=== PATIENT | female | born 1935 | race Caucasian/White ===

== ENCOUNTER → 2016-03-19 | Outpatient (CLI) | payer BC ==
[~2016-03-19] MED LIST: CETI10TA84 PO; CHOLTAB3 PO; CLON0.5T3 PO; CYAN500T PO; ESTER-C500 M2 PO; LSN/10125 PO; MAGN1CAP2 PO; METO25TA3 PO; MULT-506 PO; PANT40TA PO; POLYSOL4 OP; SALI0.658 NAE; SIMV10TA2 PO; TRAZ100T29 PO; ZINC30TA3 PO
--- NOTE | 2016-03-19 12:32 | DIAGNOSTIC IMAGING REPORT ---
CHEST 2 VIEWS ROUTINE CLINICAL HISTORY: Cough. COMPARISON STUDY: Chest radiograph September 18, 2013. FINDINGS: A calcified right lung nodule is unchanged. Lung volumes are normal. There is no consolidation. There is no evidence of pulmonary edema. Cardiomediastinal silhouette is normal. Widening of the right paratracheal stripe is unchanged. Mild loss of height of a lower thoracic vertebral body is likely chronic. IMPRESSION: No acute cardiopulmonary findings. Electronically signed by: Miki Vaughan M.D. 03/19/2016 12:30 PM Dictated Date/Time: 03/19/2016 12:29 PM
== END | disposition home or self-care (01) ==
LOC: C.RADBC 11:39
PROVIDERS: ATTEND Internal Medicine Geriatric Medicine
DX: R05 Cough (principal)

== ENCOUNTER → 2016-03-30 | Outpatient (CLI) | payer BC ==
--- NOTE | 2016-03-30 15:00 | MAMMOGRAPHY REPORT ---
BILATERAL DIGITAL DIAGNOSTIC MAMMOGRAM TOMOSYNTHESIS WITH CAD AND TARGETED BILATERAL ULTRASOUND: 03/09 CLINICAL HISTORY: 80-year-old woman presents with new palpable painful lumps in each breast. She re ports chronic chest pain possibly related to arthritis for which she uses a heating pad across her c hest nearly every night. Also history of prior benign right breast biopsy and right-sided epidermal inclusion cyst. TECHNIQUE: Bilateral breast tomosynthesis in addition to standard 2D mammography was performed. Curr ent study was also evaluated with a Computer Aided Detection (CAD) system. COMPARISON: Comparison is made to exams dated: 05/17/2015 ultrasound, 11/14/2014 ultrasound, 11/30/2013 mammogram, 11/17/2012 mammogram, 11/12/2011 aspiration, and 02/12/2011 aspiration - [facility]. BREAST COMPOSITION: There are scattered areas of fibroglandular density in both breasts. FINDINGS: Triangular skin palpable markers overlie the 12:00 right breast and 1:00 left breast. The re is a stable ribbon shaped metallic biopsy marker in the far medial, far posterior right breast, o nly seen on the CC view. There are benign-appearing round microcalcifications scattered in the [place] sts. A superficial 3 mm dense mass is identified in anterior to the biopsy marker clip in the media l right breast for which additional sonographic evaluation was performed, although this is the area of previously documented epidermal inclusion cyst. No other suspicious mass, architectural distorti on or cluster of microcalcifications is seen bilaterally, with particular attention to the new palpa ble areas. Targeted ultrasound was performed in the areas of concern pointed out by the patient (12:00 left lui ast, 5 cm from the nipple, and 12:00 right breast, 2 cm from the nipple). In the areas of concern w ithin the 12:00 axes of each breast, normal fibroglandular tissue is seen without a discrete solid o r cystic mass. Additional sonographic evaluation was performed in the far medial right breast. In the approximate 3:00 axis, 8 cm from the nipple, there is a pea sized palpable mass with black centr al punctum evident on visual inspection. On ultrasound, there is an intradermal oval parallel circu mscribed hypoechoic solid versus cystic mass measuring a proximally 5 mm. A punctum is identified e xtending to the skin surface. This is compatible with an epidermal inclusion cyst. IMPRESSION: ACR BI-RADS CATEGORY 2: BENIGN, TARGETED ULTRASOUND ACR BI-RADS CATEGORY 2: BENIGN 1. There is no suspicious mammographic or sonographic abnormality correlating with the palpable herminio nful lumps in the 12:00 axis of each breast. Therefore, clinical follow-up is recommended, as biops y of a clinically suspicious mass should not be precluded by negative imaging. 2. A 3 mm dense mass in the medial right breast correlates with an intradermal epidermal inclusion cyst, which is also visible on visual inspection and palpable. This is benign and no further workup is needed at this time. 3. Recommend follow-up in 1 year for next annual screening mammogram. These results and recommendations were discussed with the patient at the time of the exam. Approximately 10% of breast cancers are not detected with mammography. A negative mammographic repor t should not delay biopsy if a clinically suggestive mass is present. Ranjana Urbano M.D. ay/:03/30/2016 11:58:20 [employer]ender: Va Vargas, [facility] letter sent: Normal 1/2 BI-RADS Code: ACR BI-RADS Category 2: Benign Ultrasound BI-RADS: ACR BI-RADS Category 2: Benign
== END | disposition home or self-care (01) ==
LOC: C.MAMM 10:55
PROVIDERS: ATTEND Internal Medicine Geriatric Medicine
DX: N64.4 Mastodynia (principal); N63 Unspecified lump in breast

== ENCOUNTER → 2016-07-08 | Outpatient (CLI) | payer BC ==
[2016-07-08 14:39] LABS: BASO % 0.2 %; BASO ABS # 0.01 K/uL (0-0.2); COMPLETE YES; EOS % 1.5 %; HEMATOCRIT 40.2 % (37-47); IG% 0.2 %; LYMPH % 24.9 %; LYMPH ABS # 1.17 K/uL (1.2-3.4); MEAN CELL VOLUME 91.6 fL (80-100); MEAN CORPUSCULAR HGB CONC 33.8 g/dl (32-36); MEAN PLATELET VOLUME 10.7 fL (7.4-10.4); MONO % 8.1 %; NEUT % 65.1 %; PLATELET COUNT 192 K/uL (130-400); RED BLOOD COUNT 4.39 M/uL (4.2-5.4); WHITE BLOOD COUNT 4.69 K/uL (4.8-10.8)
[2016-07-08 14:52] LABS: ALT/SGPT 22 U/L (12-78); BLOOD UREA NITROGEN 6 mg/dl (7-18); BUN/CREATININE RATIO 8.8 (10-20); CARBON DIOXIDE 33 mmol/L (21-32); CHLORIDE 99 mmol/L (98-107); CREATININE 0.72 mg/dl (0.60-1.20); GLUCOSE 107 mg/dl (70-99); POTASSIUM 3.9 mmol/L (3.5-5.1); SODIUM 136 mmol/L (136-145)
[2016-07-08 14:55] LABS: CALCIUM 9.3 mg/dl (8.5-10.1)
[2016-07-08 14:59] LABS: ESTIMATED AVERAGE GLUCOSE 114 mg/dl; HA1C FLAG Normal (Normal)
[2016-07-08 15:04] LABS: ALB/GLOB RATIO 1.4 (0.9-2); ALKALINE PHOSPHATASE 58 U/L (45-117); AST/SGOT 15 U/L (15-37); THYROID STIMULATING HORMONE 0.855 uIu/ml (0.300-4.500)
== END | disposition home or self-care (01) ==
LOC: C.LABBC 11:05
PROVIDERS: ATTEND Internal Medicine Geriatric Medicine
DX: R73.9 Hyperglycemia, unspecified (principal); M19.90 Unspecified osteoarthritis, unspecified site; I10 Essential (primary) hypertension; E78.5 Hyperlipidemia, unspecified; E04.2 Nontoxic multinodular goiter; M85.80 Other specified disorders of bone density and structure, unspecified site

== ENCOUNTER → 2016-09-04 | Outpatient (CLI) | payer BC ==
[2016-09-04 13:57] LABS: BLOOD UREA NITROGEN 7 mg/dl (7-18); CREATININE 0.88 mg/dl (0.60-1.20)
== END | disposition home or self-care (01) ==
LOC: C.LABBC 10:06
PROVIDERS: ATTEND Psychiatry & Neurology Neurology
DX: Z00.00 Encounter for general adult medical examination without abnormal findings (principal); D32.9 Benign neoplasm of meninges, unspecified; R51 Headache

== ENCOUNTER → 2016-09-09 | Outpatient (CLI) | payer BC ==
[~2016-09-09] MED LIST changes: +GADAVIST IV PRN
--- NOTE | 2016-09-09 14:41 | DIAGNOSTIC IMAGING REPORT ---
MRI OF THE BRAIN WITHOUT AND WITH IV CONTRAST CLINICAL HISTORY: Headache. Meningioma. COMPARISON STUDY: 01/01/2016 TECHNIQUE: MRI of the brain was performed from the vertex to the skull base utilizing various T1 and T2 weighted sequences. Following the IV administration of 5.7 mL of Gadavist contrast, additional enhanced images were obtained. FINDINGS: Sagittal T1, axial diffusion, proton density and T2 weighted axial, coronal FLAIR, and pre and post axial T1-weighted images were acquired. These were supplemented with post gadolinium coronal T1 weighted images. There is a right anterior middle cranial fossa dural based mass which is isointense to cid matter on T2-weighted images. The mass enhances intensely following administration of gadolinium. The mass measures 14 x 12 x 12 mm. 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 The mass demonstrates minimal interval enlargement when compared the preceding study. Axial diffusion-weighted images reveal no evidence of acute or subacute infarction. There is no evidence of ventricular dilatation. Proton density T2-weighted and FLAIR images reveal scattered foci of increased T2 signal within the white matter, likely on a small vessel basis. There are old left basal ganglia lacunar infarcts. There are no abnormal flow voids. With the exception of the enhancing right middle cranial fossa extra-axial mass, there are no additional foci of pathologic enhancement. IMPRESSION: 1. Minimal interval increase in the size of the 14 x 12 x 12 mm right middle cranial fossa extra-axial mass, consistent with a sphenoid wing meningioma. 2. No evidence of acute or subacute infarction 3. Old left basal ganglia lacunar infarcts. Electronically signed by: Bob Ly M.D. 09/09/2016 2:39 PM Dictated Date/Time: 09/09/2016 2:33 PM
== END | disposition home or self-care (01) ==
LOC: C.MRIBC 13:43
PROVIDERS: ATTEND Psychiatry & Neurology Neurology
DX: D32.9 Benign neoplasm of meninges, unspecified (principal); R51 Headache

== ENCOUNTER → 2016-11-10 | Outpatient (CLI) | payer BC ==
[~2016-11-10] MED LIST changes: -GADAVIST IV PRN
--- NOTE | 2016-11-10 13:19 | DIAGNOSTIC IMAGING REPORT ---
ULTRASOUND OF THE THYROID GLAND CLINICAL HISTORY: Thyroid nodules. COMPARISON STUDY: Thyroid ultrasound dated 10/22/2015. TECHNIQUE: Real-time, grayscale, and color flow sonography of the thyroid gland is performed utilizing a high-frequency linear transducer. Images are reviewed in the transverse and longitudinal planes. FINDINGS: Right lobe: The right lobe of the thyroid gland is enlarged and heterogeneous in echotexture, measuring 6.1 x 3.1 x 1.9 cm. A complex solid and cystic nodule in the mid to lower pole measures 3.6 x 1.7 x 2.8 cm in aggregate dimension (previously measured 3.0 x 1.5 x 2.1 cm). Differences in size are likely related to measurement technique. A hypoechoic nodule in the right lower pole measures 1.0 x 1.1 x 1.0 cm (previously measured 1.2 x 1.1 x 1.3 cm). Left lobe: The left lobe of the thyroid gland is enlarged and heterogeneous in echotexture, measuring 6.9 x 3.3 x 4.0 cm. A densely calcified nodule in the lower pole measures 1.0 cm (previously measured 1.0 cm). A nodule versus cluster of nodules in the midpole measures 4.1 x 2.6 x 3.5 cm in aggregate dimension (previously measured 4.0 x 3.0 x 3.6 cm). Isthmus: The thyroid isthmus is thickened and heterogeneous measuring 1.0 cm in AP diameter. IMPRESSION: Enlarged, heterogeneous, and multinodular thyroid gland. This has not appreciably changed from prior studies. Electronically signed by: Nikolas Ramirez M.D. 11/10/2016 1:18 PM Dictated Date/Time: 11/10/2016 1:14 PM
== END | disposition home or self-care (01) ==
LOC: C.ULTRBC 12:09
PROVIDERS: ATTEND Physician Assistant
DX: E04.2 Nontoxic multinodular goiter (principal)

== ENCOUNTER → 2017-01-27 | Outpatient (CLI) | payer BC ==
[2017-01-27 13:47] LABS: BASO % 0.4 %; BASO ABS # 0.02 K/uL (0-0.2); COMPLETE YES; EOS % 4.1 %; HEMATOCRIT 40.2 % (37-47); IG% 0.2 %; LYMPH % 29.9 %; LYMPH ABS # 1.39 K/uL (1.2-3.4); MEAN CELL VOLUME 90.3 fL (80-100); MEAN CORPUSCULAR HEMOGLOBIN 30.6 pg (25-34); MEAN CORPUSCULAR HGB CONC 33.8 g/dl (32-36); MEAN PLATELET VOLUME 10.7 fL (7.4-10.4); MONO % 7.5 %; NEUT % 57.9 %; PLATELET COUNT 177 K/uL (130-400); RED BLOOD COUNT 4.45 M/uL (4.2-5.4); WHITE BLOOD COUNT 4.65 K/uL (4.8-10.8)
[2017-01-27 14:43] LABS: ALT/SGPT 25 U/L (12-78); AST/SGOT 19 U/L (15-37); BLOOD UREA NITROGEN 6 mg/dl (7-18); BUN/CREATININE RATIO 7.3 (10-20); CALCIUM 8.8 mg/dl (8.5-10.1); CARBON DIOXIDE 29 mmol/L (21-32); CHLORIDE 101 mmol/L (98-107); CHOLESTEROL 138 mg/dl (0-200); GLUCOSE 135 mg/dl (70-99); POTASSIUM 3.8 mmol/L (3.5-5.1); SODIUM 137 mmol/L (136-145); TRIGLYCERIDES 97 mg/dl (0-150); VERY LOW DENSITY LIPOPROT CALC 19 mg/dl
[2017-01-27 14:46] LABS: ALB/GLOB RATIO 1.2 (0.9-2); ALKALINE PHOSPHATASE 65 U/L (45-117); CHOLESTEROL/HDL RATIO 2.4; HDL CHOLESTEROL 57 mg/dl; LDL CHOLESTEROL CALCULATED 62 mg/dl
== END | disposition home or self-care (01) ==
LOC: C.LABBC 10:07
PROVIDERS: ATTEND Internal Medicine Geriatric Medicine
DX: J45.909 Unspecified asthma, uncomplicated (principal); I10 Essential (primary) hypertension; E78.5 Hyperlipidemia, unspecified; R73.9 Hyperglycemia, unspecified

== ENCOUNTER → 2017-04-19 | Outpatient (CLI) | payer BC ==
--- NOTE | 2017-04-19 11:04 | DIAGNOSTIC IMAGING REPORT ---
CHEST 2 VIEWS ROUTINE CLINICAL HISTORY: Wheezing on auscultation. COMPARISON STUDY: Chest radiograph March 19, 2016. FINDINGS: Lung volumes are normal. Mild elevation the right hemidiaphragm is unchanged. There is no pneumothorax or pleural effusion. A calcified right upper lobe granuloma is noted. There are calcified thoracic lymph nodes. No consolidation is identified. There is no evidence for pulmonary edema. Appearance of the chest is unchanged. IMPRESSION: No acute cardiopulmonary findings. Electronically signed by: Miki Vaughan M.D. 04/19/2017 11:02 AM Dictated Date/Time: 04/19/2017 11:01 AM
== END | disposition home or self-care (01) ==
LOC: C.RADBC 10:27
PROVIDERS: ATTEND Family Medicine Adult Medicine
DX: R06.2 Wheezing (principal)

== ENCOUNTER → 2017-04-28 | Outpatient (CLI) | payer BC ==
--- NOTE | 2017-04-29 14:03 | MAMMOGRAPHY REPORT ---
BILATERAL DIGITAL SCREENING MAMMOGRAM TOMOSYNTHESIS WITH CAD: 04/28/2017 CLINICAL HISTORY: Routine screening. Patient has no complaints. TECHNIQUE: Breast tomosynthesis in addition to standard 2D mammography was performed. Current study was also evaluated with a Computer Aided Detection (CAD) system. COMPARISON: Comparison is made to exams dated: 03/30/2016 ultrasound, 03/30/2016 mammogram, 05/17/2015 ultrasound, 05/17/2015 mammogram, 11/14/2014 ultrasound, and 11/14/2014 mammogram - [facility]. BREAST COMPOSITION: There are scattered areas of fibroglandular density in both breasts. FINDINGS: A sebaceous cyst/epidermal inclusion cyst was marked with a circular more marker, located i n the lower inner far posterior right breast. This lesion is decreased in size comparing to the 2012 mammograms, but generally stable comparing to more recent prior mammograms. There is also a stable biopsy marker clip located just posterior to the cyst. No new suspicious mass, architectural distort ion or cluster of microcalcifications is seen bilaterally. IMPRESSION: ACR BI-RADS CATEGORY 1: NEGATIVE There is no mammographic evidence of malignancy. A 1 year screening mammogram is recommended. The pa tient will receive written notification of the results. Approximately 10% of breast cancers are not detected with mammography. A negative mammographic report should not delay biopsy if a clinically suggestive mass is present. Ranjana Urbano M.D. ay/:04/28/2017 15:55:57 Trainmaster: Va Vargas, [facility] letter sent: Normal 1/2 BI-RADS Code: ACR BI-RADS Category 1: Negative
== END | disposition home or self-care (01) ==
LOC: C.MAMM 13:48
PROVIDERS: ATTEND Obstetrics & Gynecology
DX: Z12.31 Encounter for screening mammogram for malignant neoplasm of breast (principal)

== ENCOUNTER → 2017-05-27 | Outpatient (CLI) | payer BC | END | disposition home or self-care (01) | LOC: C.LABSPEC 17:28 | PROVIDERS: ATTEND Podiatrist Foot & Ankle Surgery | DX: L60.0 Ingrowing nail (principal) ==

== ENCOUNTER → 2017-06-25 | Outpatient (CLI) | payer BC ==
--- NOTE | 2017-06-25 15:35 | DIAGNOSTIC IMAGING REPORT ---
C-SPINE ROUTINE 4 OR 5 VIEWS HISTORY: 81 years-old Female M53.82 Clicking [id number] acute neck pain COMPARISON: Radiographs of the cervical spine 11/12/2009 TECHNIQUE: 5 views of the cervical spine FINDINGS: The bones appear mildly demineralized. Moderate intervertebral disc space narrowing with endplate spurring at C6-C7. At least mild multilevel facet arthrosis. Degenerative changes cause at least mild left-sided foraminal narrowing at C4-C5 and C6-C7. No acute fracture or subluxation. Atherosclerosis of the aorta. Imaged lung apices appear clear. IMPRESSION: 1. No acute fracture or subluxation. 2. Degenerative changes as above. The above report was generated using voice recognition software. It may contain grammatical, syntax or spelling errors. Electronically signed by: Andreas Larkin M.D. 06/25/2017 3:34 PM Dictated Date/Time: 06/25/2017 3:32 PM
== END ==
LOC: C.RAD1850 14:53
PROVIDERS: ATTEND Internal Medicine
DX: M50.321 Other cervical disc degeneration at C4-C5 level (principal); M50.323 Other cervical disc degeneration at C6-C7 level

== ENCOUNTER → 2017-06-29 | Outpatient (CLI) | payer BC ==
[2017-06-29 13:22] LABS: BASO % 0.6 %; BASO ABS # 0.03 K/uL (0-0.2); EOS % 3.5 %; EOS ABS # 0.18 K/uL (0-0.5); HEMATOCRIT 41.3 % (37-47); HEMOGLOBIN 13.8 g/dL (12.0-16.0); IG# 0.02 K/uL (0.00-0.02); LYMPH % 25.8 %; LYMPH ABS # 1.32 K/uL (1.2-3.4); MEAN CELL VOLUME 90.4 fL (80-100); MEAN CORPUSCULAR HEMOGLOBIN 30.2 pg (25-34); MEAN CORPUSCULAR HGB CONC 33.4 g/dl (32-36); MEAN PLATELET VOLUME 10.3 fL (7.4-10.4); MONO % 7.4 %; MONO ABS # 0.38 K/uL (0.11-0.59); NEUT % 62.3 %; NEUT ABS # 3.18 K/uL (1.4-6.5); PLATELET COUNT 202 K/uL (130-400); RED CELL DISTRIBUTION WIDTH CV 13.1 % (11.5-14.5); WHITE BLOOD COUNT 5.11 K/uL (4.8-10.8)
[2017-06-29 14:02] LABS: BLOOD UREA NITROGEN 7 mg/dl (7-18); CALCIUM 8.7 mg/dl (8.5-10.1); CARBON DIOXIDE 29 mmol/L (21-32); CREATININE 0.85 mg/dl (0.60-1.20); GLUCOSE 114 mg/dl (70-99); POTASSIUM 3.7 mmol/L (3.5-5.1); SODIUM 137 mmol/L (136-145)
== END | disposition home or self-care (01) ==
LOC: C.LABBC 10:23
PROVIDERS: ATTEND Physician Assistant
DX: G31.84 Mild cognitive impairment of uncertain or unknown etiology (principal); Z98.890 Other specified postprocedural states; R51 Headache

== ENCOUNTER → 2017-07-01 | Outpatient (CLI) | payer BC ==
[~2017-07-01] MED LIST changes: +GADAVIST IV PRN
--- NOTE | 2017-07-01 14:37 | DIAGNOSTIC IMAGING REPORT ---
MRI OF THE BRAIN WITHOUT AND WITH IV CONTRAST CLINICAL HISTORY: Headache. COMPARISON STUDY: MRI of the brain September 09, 2016 and MRI of the brain from her she January 18, 2017. TECHNIQUE: Utilizing a 1.5 Chela magnet and dedicated coil, multiplanar, multiecho imaging of the brain was performed pre and postcontrast administration. IV administration of 5.5 mL of Gadavist contrast was uneventful. FINDINGS: There are no foci of restricted diffusion. No acute intracranial hemorrhage is present. An enhancing extra-axial lesion along the right sphenoid wing is unchanged as MRI of January 18, 2017. This lesion measures 1.4 x 1.3 cm. No additional intracranial lesions are present. Old left basal ganglia infarcts are noted. Scattered white matter T2 hyperintense foci reflect small vessel disease. A 1.8 cm T1 hypointense right frontal bone lesion adjacent to the right frontal sinus shown on axial image 17 is noted. Conspicuity of this focus has increased since previous MRI. IMPRESSION: 1. 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 2. No acute intracranial findings. 3. 1.8 cm T1 hypointense focus within the right frontal bone. This is low suspicion but indeterminate. A follow-up MRI in 6 months is recommended. Electronically signed by: Miki Vaughan M.D. 07/01/2017 2:35 PM Dictated Date/Time: 07/01/2017 1:11 PM
== END | disposition home or self-care (01) ==
LOC: C.MRIBC 12:28
PROVIDERS: ATTEND Physician Assistant
DX: D16.4 Benign neoplasm of bones of skull and face (principal); R51 Headache

== ENCOUNTER → 2017-07-08 | Outpatient (CLI) | payer BC ==
[~2017-07-08] MED LIST changes: -GADAVIST IV PRN
== END | disposition home or self-care (01) ==
LOC: C.MAMM 10:41
PROVIDERS: ATTEND Internal Medicine Geriatric Medicine
DX: M85.80 Other specified disorders of bone density and structure, unspecified site (principal); M85.852 Other specified disorders of bone density and structure, left thigh; M85.851 Other specified disorders of bone density and structure, right thigh

== ENCOUNTER → 2017-07-30 | Outpatient (CLI) | payer BC ==
--- NOTE | 2017-07-30 12:19 | DIAGNOSTIC IMAGING REPORT ---
ULTRASOUND RIGHT LOWER EXTREMITY VENOUS CLINICAL HISTORY: Right leg pain. COMPARISON STUDY: No priors. TECHNIQUE: Real-time, grayscale, and color Doppler sonography of the deep veins of the right lower extremity was performed from the inguinal crease to the calf. Compression and augmentation were utilized. FINDINGS: There is no sonographic evidence of deep venous thrombosis identified in the right lower extremity. The common femoral, superficial femoral, and popliteal veins are patent and normally compressible. The greater saphenous vein and the profunda femoris vein at the junction with the common femoral vein are clear. The visualized calf veins are patent. IMPRESSION: There is no sonographic evidence of deep venous thrombosis identified in the right lower extremity. Electronically signed by: Nikolas Ramirez M.D. 07/30/2017 12:18 PM Dictated Date/Time: 07/30/2017 12:17 PM
== END | disposition home or self-care (01) ==
LOC: C.ULTRBC 11:43
PROVIDERS: ATTEND Family Medicine Adult Medicine
DX: M79.609 Pain in unspecified limb (principal)

== ENCOUNTER → 2017-10-20 | Outpatient (CLI) | payer BC ==
[~2017-10-20] MED LIST changes: -CLON0.5T3 PO; +CLON0.5T9 PO
--- NOTE | 2017-10-20 14:18 | DIAGNOSTIC IMAGING REPORT ---
CHEST 2 VIEWS ROUTINE CLINICAL HISTORY: R07.89 Atypical chest [id number] dyspnea COMPARISON STUDY: 04/19/2017 FINDINGS: Lungs are clear. Unchanging small calcified granuloma peripheral aspect right upper lung. Lungs otherwise appear clear. IMPRESSION: No acute process. The above report was generated using voice recognition software. It may contain grammatical, syntax or spelling errors. Electronically signed by: Tanmay Washington M.D. 10/20/2017 2:16 PM Dictated Date/Time: 10/20/2017 2:14 PM
== END | disposition home or self-care (01) ==
LOC: C.RADBC 14:02
PROVIDERS: ATTEND Physician Assistant Medical
DX: R07.89 Other chest pain (principal)

== ENCOUNTER 2019-11-06 16:49 | Observation (INO) ==
[2019-11-06] MEDS ORDERED: SODIUM CHLORIDE 0.9% 1000ML 1,000 ML IV ONE (17:03)
--- NOTE | 2019-11-06 17:49 | XRay Report ---
XR chest 1V portable HISTORY: 83 years-old Female Chest Pain acute atypical chest pain COMPARISON: Chest CT 08/30/2019 TECHNIQUE: Portable AP view of the chest FINDINGS: Cardiomediastinal and hilar silhouettes are within normal limits. Calcified plaque of the thoracic ao rtic arch. Unchanged calcified granuloma of the right upper lobe. Calcified right hilar lymph nodes. No pneumothorax, pleural effusion, airspace consolidation or overt pulmonary edema. Degenerative miller ges of the shoulders and spine. IMPRESSION: 1. No acute process. 2. Prior granulomatous disease. ACT 112: Negative or not required by law. The above report was generated using voice recognition software. It may contain grammatical, syntax o r spelling errors. Electronically signed by: Andreas Larkin M.D. 11/06/2019 5:47 PM
[2019-11-06 17:54] LABS: Basophils # (auto) 0.02 K/uL (0-0.2); Basophils % (auto) 0.4 %; Eosinophils # (auto) 0.24 K/uL (0-0.5); Eosinophils % (auto) 4.3 %; Hematocrit (blood only) 39.6 % (37-47); Hemoglobin 13.2 g/dL (12.0-16.0); Immature Granulocytes # (auto) 0.01 K/uL (0.00-0.02); Immature Granulocytes % (auto) 0.2 %; Lymphocytes # (auto) 1.76 K/uL (1.2-3.4); Lymphocytes % (auto) 31.5 %; Mean Corpuscular Hemoglobin 30.4 pg (25-34); Mean Corpuscular Hgb Conc 33.3 g/dL (32-36); Mean Corpuscular Volume 91.2 fL (80-100); Mean Platelet Volume 10.7 fL (7.4-10.4); Monocytes # (auto) 0.49 K/uL (0.11-0.59); Monocytes % (auto) 8.8 %; Neutrophils # (auto) 3.07 K/uL (1.4-6.5); Neutrophils % (auto) 54.8 %; Platelet Count 178 K/uL (130-400); RDW Coefficient of Variation 12.7 % (11.5-14.5); RDW Standard Deviation 42.8 fL (36.4-46.3); Red Blood Count 4.34 M/uL (4.2-5.4); White Blood Count 5.59 K/uL (4.8-10.8)
[2019-11-06 18:04] LABS: Partial Thromboplastin Ratio 0.8; Partial Thromboplastin Time 23.4 Seconds (21.0-31.0); Prothrombin Time 10.9 Seconds (9.0-12.0)
[2019-11-06 18:12] LABS: Alanine Aminotransferase 20 U/L (12-78); Albumin Level 3.6 gm/dl (3.4-5.0); Aspartate Aminotransferase 16 U/L (15-37); BUN Creatinine Ratio 13.4 (10-20); Blood Urea Nitrogen 10 mg/dl (7-18); Calcium 8.9 mg/dl (8.5-10.1); Carbon Dioxide 31 mmol/L (21-32); Chloride 105 mmol/L (98-107); Creatinine Clr Calc Pharmacy 54.3 ml/min; Est GFR (African American) 85.3; Est GFR (Non-African American) 73.6; Glucose 97 mg/dl (70-99); Lipase 202 U/L (73-393); Potassium 3.9 mmol/L (3.5-5.1); Sodium 141 mmol/L (136-145)
[2019-11-06 18:17] LABS: Albumin Globulin Ratio 1.2 (0.9-2); Alkaline Phosphatase 68 U/L (45-117); Bilirubin,Total 0.4 mg/dl (0.2-1); Total Protein 6.6 gm/dl (6.4-8.2); Troponin I < 0.015 ng/ml (0-0.045)
--- NOTE | 2019-11-06 18:35 | Emergency Department Note ---
Impression & Plan Confusion, Hypertension ED Provider Note NAME: STEPHANIE JO AGE: 83 SEX: F : 1935 ARRIVES VIA: Ambulance INFORMANT: Patient ED PROVIDER(S): Renny Magallanes DO CHIEF COMPLAINT: confusion HPI: Patient is an 83-year-old female brought in for confusion. She lives at [facility]. She was found to be confused by the staff. Patient adamantly denies that she was confused. She has no complaints at this time. She denies any headache, chest pain, shortness breath, nausea vomiting or diarrhea. No dysuria urgency or frequency. No weakness or numbness in her arms or legs. Niece who was the power of ed tech notes that she has been intermitt ently confused but that has worsened recently and she is more confused than her baseline. ROS: See above HPI for pertinent positives & negatives. A total of 10 systems reviewed and were otherwise negative. PAST MEDICAL HISTORY:See Below PAST SURGICAL HISTORY:See Below FAMILY HISTORY:See Below SOCIAL HISTORY:See Below HOME MEDICATIONS:See Below ALLERGIES:See Below VITALS:See Below PHYSICAL EXAMINATION: GENERAL: Sitting up in bed, alert, well appearing, well nourished, no distress, non-toxic EYE EXAM: normal conjunctiva. PERRL and EOM's grossly intact. OROPHARYNX: no exudate, no erythema, lips, buccal mucosa, and tongue normal and mucous membranes are moist NECK: supple, no nuchal rigidity, no adenopathy, non-tender LUNGS: Clear to auscultation. Normal chest wall mechanics HEART: no murmurs, S1 normal and S2 normal ABDOMEN: abdomen soft, non-tender, normo-active bowel sounds, no masses, no rebound or guarding. BACK: Back is symmetrical on inspection and there is no deformity, no midline tenderness, no CVA tenderness. SKIN: no rashes and no bruising UPPER EXTREMITIES: upper extremities are grossly normal. LOWER EXTREMITIES: No pitting edema. NEURO EXAM: Awake alert oriented to person and place but not month, cranial nerves II-XII intact, normal speech, no weakness of arms, no weakness of legs. No drift. Finger to nose intact. Gross sensation intact. Slow to respond to questioning. Difficulty remembering what happened prior to presentation. MEDICAL DECISION MAKING: Patient is an 83-year-old female who presents the ER for confusion. She was found confused by the staff at the apartment building. Brought in. Niece confirms this. IV was established blood work was obtained. Labs show no significant leukocytosis or anemia. INR unremarkable. BMP along with LFTs bilirubin troponin and lipase was unremarkable. UA was clean. CT head was negative. Patient and the niece were updated bedside and discussed with hospitalist for further evaluation. Triage Nursing notes reviewed. Prior medical records reviewed Vital Signs: reviewed and remarkable for no significant abnormalities Differential diagnosis: Differential diagnoses includes but is not limited to toxic, metabolic, infectious, traumatic, cardiac, neurologic, hematologic, psychiatric and inflammatory etiologies. ER treatment provided: See below Diagnostics interpreted by me: ECG: Sinus rhythm rate of 72 Normal axis No PVCs T WI in the septal leads Normal QTC Cardiac Monitoring: An order was placed for continuous cardiac monitoring. The monitor shows a rate of 70 with sinus rhythm. Laboratory studies: As stated above and show below. Imaging studies: CT head was negative for any acute pathology Consultation(s): Discussed with Dr. Tone Kebede for further evaluation ED COURSE: Procedures: none Critical Care: None Past Med/Surg History Medical History (Updated 11/06/19 @ 23:02 by Renny Magallanes DO) Allergic rhinitis due to dust Anxiety disorder Asthma inhaler prn Atypical chest pain Breast mass Cerebral atherosclerosis following with Dr. Rodríguez Constipation Dysphagia Prior evaluation Fibromyalgia Gastroesophageal reflux disease Glaucoma Head pain following with Dr. Rodríguez History of Holter monitoring wore recently 08/2019, no result yet, d/t pain in chest/breast area Hyperlipidemia Hypertension Insomnia Meningioma (~2014) Mild cognitive impairment Nontoxic multinodular goiter Osteoarthritis of left knee Osteopenia Poor historian Rectal bleeding ? reason for colonoscopy?? Skin lesion of back 4mm flesh colored mole, center of back. SNHL (sensorineural hearing loss) Surgical History (Updated 08/21/19 @ 10:52 by Agnes Rankin RN) History of cataract surgery unsure which eye History of colonoscopy History of tooth extraction partial upper/lower denture Family History (Updated 08/21/19 @ 10:52 by Agnes Rankin RN) Brother Acute myocardial infarction Stroke syndrome Family history of diabetes mellitus Sister Family history of diabetes mellitus Unknown Ovarian cancer Heart disease Hypertension Mother Ovarian cancer Brother Family history of diabetes mellitus Sister Family history of diabetes mellitus Other No family history of adverse response to anesthesia Social History Smoking Status: Unknown if ever smoked Age Started Using Tobacco: 21; Age Quit Using Tobacco: 22; packs per day: 0.5; Cigarettes Per Day: 10; Second Hand Exposure: Yes ( smoked a pipe); Hx Alcohol Use: No (quit drinking wine 5 yrs ago) Hx Substance Use: No Preferred Language: Pashto Communication Ability: Effective Visual Impairment: Diminished Hearing Ability: Normal Direct Mail Manager Required: No Beliefs That Will Affect Care: None marital status: / Current Living Situation: Alone current occupational status: retired Feels Safe at Home: Yes Childhood Exposure to Second-Hand Smoke: No caffeine: No Dental Care, Regularly: Yes Physical Activity Frequency: Does not Exercise Seatbelt Use: always Sunscreen Use: No Allergies Allergies Allergy/AdvReac Type Severity Reaction Status Date / Time Penicillins Allergy Intermediate HIVES Verified 08/21/19 10:28 Sulfa (Sulfonamide Allergy Intermediate Hives Verified 08/21/19 10:28 Antibiotics) adhesive Allergy Mild redness Verified 08/21/19 10:28 gabapentin Allergy Mild gi symptoms Verified 08/21/19 10:28 hydralazine Allergy Mild gi symptoms Verified 08/21/19 10:28 prednisone Allergy Mild thrush Verified 08/21/19 10:28 aspirin Allergy Unknown Unknown Verified 08/21/19 10:28 atorvastatin Allergy Unknown unknown Verified 08/21/19 10:28 Cipro Allergy Unknown ? Unverified 06/22/15 15:06 ciprofloxacin Allergy Unknown Unknown Verified 08/21/19 10:28 clindamycin Allergy Unknown Unknown Verified 08/21/19 10:28 erythromycin base Allergy Unknown Unknown Verified 08/21/19 10:28 escitalopram Allergy Unknown Unknown Verified 08/21/19 10:28 etodolac Allergy Unknown Unknown Verified 08/21/19 10:28 meloxicam Allergy Unknown unknown Verified 08/21/19 10:28 metronidazole Allergy Unknown Unknown Verified 08/21/19 10:28 naloxone [From Talwin NX] Allergy Unknown Unknown Verified 08/21/19 10:28 omeprazole Allergy Unknown Unknown Verified 08/21/19 10:28 pentazocine Allergy Unknown Unknown Verified 08/21/19 10:28 polyethylene glycol 400 Allergy Unknown Unknown Verified 08/21/19 10:28 [From Systane (propylene glycol)] propylene glycol Allergy Unknown Unknown Verified 08/21/19 10:28 [From Systane (propylene glycol)] pseudoephedrine Allergy Unknown Unknown Verified 08/21/19 10:28 temazepam Allergy Unknown Unknown Verified 08/21/19 10:28 tramadol Allergy Unknown Unknown Verified 08/21/19 10:28 fluvoxamine AdvReac Mild GI SYMPTOMS Verified 08/21/19 10:28 meclizine AdvReac Mild nausea/ Verified 08/21/19 10:28 vomiting promethazine AdvReac Mild gi symptoms Verified 08/21/19 10:28 quetiapine AdvReac Mild gi symptoms Verified 08/21/19 10:28 risperidone AdvReac Mild GI SYMPTOMS Verified 08/21/19 10:28 Home Meds Home Medications Medication Instructions Recorded Confirmed buspirone 7.5 mg tablet 7.5 mg PO BID 11/07/18 11/06/19 cholecalciferol (vitamin D3) 10 400 unit PO QAM 11/07/18 11/06/19 mcg (400 unit) tablet cyanocobalamin (vitamin B-12) 500 500 mcg PO QAM 11/07/18 11/06/19 mcg tablet propylene glycol 0.6 % eye drops 1 drp OPHTHALMIC (EYE) Q6H PRN 11/07/18 11/06/19 trazodone 100 mg tablet 100 mg PO HS tab 11/07/18 11/06/19 venlafaxine 150 mg 150 mg PO QAM 11/07/18 11/06/19 capsule,extended release 24 hr albuterol sulfate 2 puffs INH Q6H PRN 11/06/19 11/06/19 benzonatate [Tessalon Perles] 100 mg PO BID PRN 11/06/19 11/06/19 clonazepam See Rx Instructions .ROUTE .COMPLEX 11/06/19 11/06/19 magnesium hydroxide [Milk of 5 ml PO DAILY PRN 11/06/19 11/06/19 Magnesia] montelukast [Singulair] 5 mg PO DAILY 11/06/19 11/06/19 simvastatin 10 mg PO QPM 11/06/19 11/06/19 triamcinolone acetonide 1 applic TOPICAL BID PRN 11/06/19 11/06/19 Previous Rx's Medication Instructions Recorded metoprolol succinate 25 mg 25 mg PO DAILY #90 tab 01/02/19 tablet,extended release 24 hr lisinopril 10 1 tab PO QAM #90 tab 06/12/19 mg-hydrochlorothiazide 12.5 mg tablet Results & Data (ED) Vital Signs Vital Signs - 24 hr 11/06/19 16:50 11/06/19 18:23 11/06/19 21:12 Temperature 36.6 C Temperature Source Oral Pulse Rate 70 Pulse Rate [Right Finger] 70 80 Respiratory Rate 18 22 18 Respiratory Effort / Characteristics Non-Labored Spontaneous Respiratory Depth Normal Blood Pressure 158/60 H Blood Pressure [Right Arm] 159/96 H 171/88 H Blood Pressure Mean 92 Blood Pressure Mean [Right Arm] 117 115 Blood Pressure Position Sitting Pulse Oximetry 95 97 94 Oxygen Delivery Method Room Air Room Air Room Air Sepsis Recent Fever Within 48 Hours No Sepsis New/Unexplained Change in Mental Status No Sepsis Action Taken by Nursing No Action Required 11/06/19 22:09 Temperature Temperature Source Pulse Rate 73 Pulse Rate [Right Finger] Respiratory Rate 18 Respiratory Effort / Characteristics Respiratory Depth Blood Pressure 165/83 H Blood Pressure [Right Arm] Blood Pressure Mean Blood Pressure Mean [Right Arm] Blood Pressure Position Pulse Oximetry 99 Oxygen Delivery Method Room Air Sepsis Recent Fever Within 48 Hours Sepsis New/Unexplained Change in Mental Status Sepsis Action Taken by Nursing Laboratory Data Result diagrams: 11/06/19 17:35 11/06/19 17:35 Lab Results 11/06/19 11/06/19 11/06/19 Range/Units 17:35 17:35 17:35 WBC 5.59 (4.8-10.8) K/uL RBC 4.34 (4.2-5.4) M/uL Hgb 13.2 (12.0-16.0) g/dL Hct 39.6 (37-47) % MCV 91.2 (80-100) fL MCH 30.4 (25-34) pg MCHC 33.3 (32-36) g/dL RDW Std Deviation 42.8 (36.4-46.3) fL RDW Coeff of Marielos 12.7 (11.5-14.5) % Plt Count 178 (130-400) K/uL MPV 10.7 H (7.4-10.4) fL Immature Gran % (Auto) 0.2 % Neut % (Auto) 54.8 % Lymph % (Auto) 31.5 % [place] % (Auto) 8.8 % Eos % (Auto) 4.3 % Baso % (Auto) 0.4 % Neut # (Auto) 3.07 (1.4-6.5) K/uL Lymph # (Auto) 1.76 (1.2-3.4) K/uL [place] # (Auto) 0.49 (0.11-0.59) K/uL Eos # (Auto) 0.24 (0-0.5) K/uL Baso # (Auto) 0.02 (0-0.2) K/uL Immature Gran # (Auto) 0.01 (0.00-0.02) K/uL PT 10.9 (9.0-12.0) Seconds INR 1.0 (0.9-1.1) APTT 23.4 (21.0-31.0) Seconds PTT Ratio 0.8 Sodium 141 (136-145) mmol/L Potassium 3.9 (3.5-5.1) mmol/L Chloride 105 (98-107) mmol/L Carbon Dioxide 31 (21-32) mmol/L Anion Gap 5.0 (3-11) BUN 10 (7-18) mg/dl Creatinine 0.76 (0.6-1.2) mg/dl Est Cr Clr Drug Dosing 54.3 ml/min Est GFR ( Amer) 85.3 Est GFR (Non-Af Amer) 73.6 BUN/Creatinine Ratio 13.4 (10-20) Glucose 97 (70-99) mg/dl Calcium 8.9 (8.5-10.1) mg/dl Total Bilirubin 0.4 (0.2-1) mg/dl AST 16 (15-37) U/L ALT 20 (12-78) U/L Alkaline Phosphatase 68 (45-117) U/L Troponin I < 0.015 (0-0.045) ng/ml Total Protein 6.6 (6.4-8.2) gm/dl Albumin 3.6 (3.4-5.0) gm/dl Globulin 3.0 (2.5-4.0) gm/dl Albumin/Globulin Ratio 1.2 (0.9-2) Lipase 202 (73-393) U/L Urine Color Urine Appearance (Clear) Urine pH (4.5-7.5) Ur Specific [place] (1.000-1.030) Urine Protein (Negative) Urine Glucose (UA) (Negative) Urine Ketones (Negative) Urine Blood (Negative) Urine Nitrite (Negative) Urine Bilirubin (Negative) Urine Urobilinogen (Negative) Ur Leukocyte Esterase (Negative) Urine WBC (Auto) (0-5) /hpf Urine RBC (Auto) (0-4) /hpf U Hyaline Cast (Auto) (0-5) /lpf U Epithel Cells (Auto) (0-5) /lpf Urine Bacteria (Auto) (Negative) 11/06/19 Range/Units 19:00 WBC (4.8-10.8) K/uL RBC (4.2-5.4) M/uL Hgb (12.0-16.0) g/dL Hct (37-47) % MCV (80-100) fL MCH (25-34) pg MCHC (32-36) g/dL RDW Std Deviation (36.4-46.3) fL RDW Coeff of Marielos (11.5-14.5) % Plt Count (130-400) K/uL MPV (7.4-10.4) fL Immature Gran % (Auto) % Neut % (Auto) % Lymph % (Auto) % [place] % (Auto) % Eos % (Auto) % Baso % (Auto) % Neut # (Auto) (1.4-6.5) K/uL Lymph # (Auto) (1.2-3.4) K/uL [place] # (Auto) (0.11-0.59) K/uL Eos # (Auto) (0-0.5) K/uL Baso # (Auto) (0-0.2) K/uL Immature Gran # (Auto) (0.00-0.02) K/uL PT (9.0-12.0) Seconds INR (0.9-1.1) APTT (21.0-31.0) Seconds PTT Ratio Sodium (136-145) mmol/L Potassium (3.5-5.1) mmol/L Chloride (98-107) mmol/L Carbon Dioxide (21-32) mmol/L Anion Gap (3-11) BUN (7-18) mg/dl Creatinine (0.6-1.2) mg/dl Est Cr Clr Drug Dosing ml/min Est GFR ( Amer) Est GFR (Non-Af Amer) BUN/Creatinine Ratio (10-20) Glucose (70-99) mg/dl Calcium (8.5-10.1) mg/dl Total Bilirubin (0.2-1) mg/dl AST (15-37) U/L ALT (12-78) U/L Alkaline Phosphatase (45-117) U/L Troponin I (0-0.045) ng/ml Total Protein (6.4-8.2) gm/dl Albumin (3.4-5.0) gm/dl Globulin (2.5-4.0) gm/dl Albumin/Globulin Ratio (0.9-2) Lipase (73-393) U/L Urine Color Yellow Urine Appearance Clear (Clear) Urine pH 8.0 H (4.5-7.5) Ur Specific [place] 1.012 (1.000-1.030) Urine Protein Negative (Negative) Urine Glucose (UA) Negative (Negative) Urine Ketones Negative (Negative) Urine Blood Negative (Negative) Urine Nitrite Negative (Negative) Urine Bilirubin Negative (Negative) Urine Urobilinogen Negative (Negative) Ur Leukocyte Esterase Trace H (Negative) Urine WBC (Auto) 1-5 (0-5) /hpf Urine RBC (Auto) 0-4 (0-4) /hpf U Hyaline Cast (Auto) 1-5 (0-5) /lpf U Epithel Cells (Auto) 10-20 H (0-5) /lpf Urine Bacteria (Auto) Negative (Negative) Administered Medications Discontinued Medications Sodium Chloride (Nss 1000ml) 1,000 mls @ 999 mls/hr IV .Q1H1M ONE Stop: 11/06/19 18:03 Last Infusion: 11/06/19 19:09 Dose: 0 mls/hr Documented by: [id number] Admin: 11/06/19 17:58 Dose: 999 mls/hr Documented by: [id number] Sodium Chloride (Nss) 500 mls @ 999 mls/hr IV .Q31M ONE Stop: 11/06/19 19:19 Last Admin: 11/06/19 19:08 Dose: 999 mls/hr Documented by: [id number] Discharge Plan Visit Data Chief Complaint: Confusion Stated Complaint: CONFUSION ED Provider: Renny Magallanes Discharge Problem: Confusion, Hypertension Patient Disposition: Admitted As Inpatient Discharge Instructions Interventions: ED Discharge Assessment Last Done: 11/06/19 22:09 Discharge Problem: Hypertension Qualifiers: Hypertension type: unspecified Qualified Code(s): I10 - Essential (primary) hypertension
--- NOTE | 2019-11-06 18:43 | CT Scan Report ---
CT head/brain wo con CLINICAL HISTORY: 83 years-old Female with ams. Confusion with acutely altered mental status TECHNIQUE: Multiple axial CT images of the head were obtained without contrast. A dose lowering tech nique was utilized adhering to the principles of ALARA. CT DOSE: 537.48 mGy.cm COMPARISON: Brain MRI 08/19/2018, head CT 08/22/2011 FINDINGS: No acute intracranial hemorrhage, midline shift, intra-axial mass, hydrocephalus, territorial ischemi a or abnormal extra-axial collection. There is an unchanged calcified extra-axial lesion measuring 1. 4 cm involving the right middle cranial fossa suggestive of a probable meningioma. Age-related involutional changes. Scattered white matter hypodensities suggestive of chronic microvas cular ischemic disease. 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 Sen escent calcifications of the lentiform nuclei. Cerebral vascular calcifications. The calvarium is intact. Prior bilateral lens replacement. The paranasal sinuses, mastoid air cells, and middle ear cavities are clear. IMPRESSION: 1. Chronic findings as above without acute intracranial abnormality. 2. Unchanged probable meningioma of the right middle cranial fossa, 1.4 cm. ACT 112: Negative or not required by law. The above report was generated using voice recognition software. It may contain grammatical, syntax o r spelling errors. Electronically signed by: Andreas Larkin M.D. 11/06/2019 6:41 PM
[2019-11-06] MEDS ORDERED: SODIUM CHLORIDE 0.9% 500 ML IV ONE (18:49)
[2019-11-06 19:15] LABS: Appearance Urine Clear (Clear); Bacteria Urine Automated Negative (Negative); Bilirubin Urine Negative (Negative); Blood Urine Negative (Negative); Color Urine Yellow; Glucose Urine UA Negative (Negative); Ketones Urine Negative (Negative); Leukocyte Esterase Urine Trace (Negative); Nitrite Urine Negative (Negative); Protein Urine Negative (Negative); RBC Urine Automated 0-4 /hpf (0-4); Specific Gravity Urine 1.012 (1.000-1.030); Urobilinogen Urine Negative (Negative)
--- NOTE | 2019-11-06 21:04 | History & Physical Report ---
Date of Service November 06, 2019 Assessment & Plan (1) Confusion: Priscilla Hernandez is a 83 y/o female with past medical hx of HTN, HLD, anxiety, insomnia, cerebral atheroslerosis, meningioma (chronic 2014), mild cognitive impairment, OA, GERD, who presented to [facility] for confusion. Great Niece is POA and with patient. - Appears to be worsening cognitive decline, has hx of cognitive impairment, cannot rule out early dementia; MRI from 08/2018 showed Chronic small vessel ischemic change and old lacunar infarcts in the left caudate body and left periventricular white matter. - Appears at this time that it isn't safe to return to independent living, case management consulted - Niece is POA - Will get Stat MRI Brain w/o and Stat MRA Brain w/o after discussion with attending hospitalist as early read if stroke could change treatment options. - Last known well either 24-48 hours ago. - Labs unremarkable in ED, UA doesn't appear to be grossly infected, no indication for abx at this time, no urinary complaints. - Could also be component of sedating home meds like Clonazepam playing a role into confusion as will do so in the elderly - Fall precautions, 1:1 as needed, will only keep Trazadone 100mg qHS on board for sleep now. DVT ppx: SCDs Code: DNR/DNI, Gavin Marcanoece is POA and was discussed with her at bedside. FENGI: Heart healthy diet Dispo: Obs, Med/surg. (2) Insomnia: Could be adding to confusion as noted to be on Benzo for sleep along with other sedating meds like Trazadone and Buspar. - Will continue with Trazadone 100mg qHS for sleep, will hold benzos at this time (3) Mild cognitive impairment: as noted in hx (4) Hypertension: c/w Lisinopril 10mg-HCTZ 12.5mg PO daily c/w Toprol ER 25mg PO daily (5) Hyperlipidemia: noted to have statin intolerance/in allergy list (6) Gastroesophageal reflux disease: noted in hx, does not appear to be on anything, will only add PRN if needed (7) Meningioma: noted in hx History of Present Illness Chief Complaint: Confusion Primary Care Provider: Nando Horton, DO Caveat: History Limited by Confusion Priscilla Hernandez is a 83 y/o female with past medical hx of HTN, HLD, anxiety, insomnia, cerebral atheroslerosis, meningioma (chronic 2015), mild cognitive impairment, OA, GERD, who presented to [facility] for confusion. Great Niece is POA and with patient. She notes that she was told patient was wondering around outside confused around noon today. Patient lives by herself in independent living in an apartment. Her neighbor noticed she was outside and acting confused and EMS was contacted. Patient cannot recall events leading or why she needed to come to hospital. She notes she has no complaints. Daughter notes it is unusual for her to be wondering around out front of apartment. She notes that her Grandfather took her grocery shopping either yesterday or the day before. She denies any fever, chills, head injury, falls, weakness, numbness, chest pain, shortness of breath. Great Niece acknowledges that this could be worsening cognitive process. Allergies Allergy/AdvReac Type Severity Reaction Status Date / Time Penicillins Allergy Intermediate HIVES Verified 08/21/19 10:28 Sulfa (Sulfonamide Allergy Intermediate Hives Verified 08/21/19 10:28 Antibiotics) adhesive Allergy Mild redness Verified 08/21/19 10:28 aspirin Allergy Unknown Unknown Verified 08/21/19 10:28 atorvastatin Allergy Unknown unknown Verified 08/21/19 10:28 Cipro Allergy Unknown ? Unverified 06/22/15 15:06 ciprofloxacin Allergy Unknown Unknown Verified 08/21/19 10:28 clindamycin Allergy Unknown Unknown Verified 08/21/19 10:28 erythromycin base Allergy Unknown Unknown Verified 08/21/19 10:28 escitalopram Allergy Unknown Unknown Verified 08/21/19 10:28 etodolac Allergy Unknown Unknown Verified 08/21/19 10:28 meloxicam Allergy Unknown unknown Verified 08/21/19 10:28 metronidazole Allergy Unknown Unknown Verified 08/21/19 10:28 naloxone [From Talwin NX] Allergy Unknown Unknown Verified 08/21/19 10:28 omeprazole Allergy Unknown Unknown Verified 08/21/19 10:28 pentazocine Allergy Unknown Unknown Verified 08/21/19 10:28 polyethylene glycol 400 Allergy Unknown Unknown Verified 08/21/19 10:28 [From Systane (propylene glycol)] propylene glycol Allergy Unknown Unknown Verified 08/21/19 10:28 [From Systane (propylene glycol)] pseudoephedrine Allergy Unknown Unknown Verified 08/21/19 10:28 temazepam Allergy Unknown Unknown Verified 08/21/19 10:28 tramadol Allergy Unknown Unknown Verified 08/21/19 10:28 fluvoxamine AdvReac Mild GI SYMPTOMS Verified 08/21/19 10:28 gabapentin AdvReac Mild gi symptoms Verified 11/06/19 23:41 hydralazine AdvReac Mild gi symptoms Verified 11/06/19 23:41 meclizine AdvReac Mild nausea/ Verified 08/21/19 10:28 vomiting prednisone AdvReac Mild thrush Verified 11/06/19 23:41 promethazine AdvReac Mild gi symptoms Verified 08/21/19 10:28 quetiapine AdvReac Mild gi symptoms Verified 08/21/19 10:28 risperidone AdvReac Mild GI SYMPTOMS Verified 08/21/19 10:28 Home Medications Home Medications Medication Instructions Recorded Confirmed Type buspirone 7.5 mg tablet 7.5 mg PO BID 11/07/18 11/06/19 History cholecalciferol (vitamin D3) 10 400 unit PO QAM 11/07/18 11/06/19 History mcg (400 unit) tablet cyanocobalamin (vitamin B-12) 500 500 mcg PO QAM 11/07/18 11/06/19 History mcg tablet propylene glycol 0.6 % eye drops 1 drp OPHTHALMIC (EYE) Q6H PRN 11/07/18 11/06/19 History trazodone 100 mg tablet 100 mg PO HS tab 11/07/18 11/06/19 History venlafaxine 150 mg 150 mg PO QAM 11/07/18 11/06/19 History capsule,extended release 24 hr metoprolol succinate 25 mg 25 mg PO DAILY #90 tab 01/02/19 11/06/19 Rx tablet,extended release 24 hr lisinopril 10 1 tab PO QAM #90 tab 06/12/19 11/06/19 Rx mg-hydrochlorothiazide 12.5 mg tablet albuterol sulfate 2 puffs INH Q6H PRN 11/06/19 11/06/19 History benzonatate [Tessalon Perles] 100 mg PO BID PRN 11/06/19 11/06/19 History clonazepam See Rx Instructions .ROUTE .COMPLEX 11/06/19 11/06/19 History magnesium hydroxide [Milk of 5 ml PO DAILY PRN 11/06/19 11/06/19 History Magnesia] montelukast [Singulair] 5 mg PO DAILY 11/06/19 11/06/19 History simvastatin 10 mg PO QPM 11/06/19 11/06/19 History triamcinolone acetonide 1 applic TOPICAL BID PRN 11/06/19 11/06/19 History donepezil 5 mg PO DAILY #30 tab 11/07/19 Rx Past Med/Surg History Medical History Allergic rhinitis due to dust Anxiety disorder Asthma inhaler prn Atypical chest pain Breast mass Cerebral atherosclerosis following with Dr. Rodríguez Constipation Dysphagia Prior evaluation Fibromyalgia Gastroesophageal reflux disease Glaucoma Head pain following with Dr. Rodríguez History of Holter monitoring wore recently 08/2019, no result yet, d/t pain in chest/breast area Hyperlipidemia Hypertension Insomnia Meningioma (~2014) Mild cognitive impairment Nontoxic multinodular goiter Osteoarthritis of left knee Osteopenia Poor historian Rectal bleeding ? reason for colonoscopy?? Skin lesion of back 4mm flesh colored mole, center of back. SNHL (sensorineural hearing loss) Surgical History History of cataract surgery unsure which eye History of colonoscopy History of tooth extraction partial upper/lower denture Family History Brother Acute myocardial infarction Stroke syndrome Family history of diabetes mellitus Sister Family history of diabetes mellitus Unknown Ovarian cancer Heart disease Hypertension Mother Ovarian cancer Brother Family history of diabetes mellitus Sister Family history of diabetes mellitus Other No family history of adverse response to anesthesia Social History Smoking Status: Unknown if ever smoked Age Started Using Tobacco: 21; Age Quit Using Tobacco: 22; packs per day: 0.5; Cigarettes Per Day: 10; Second Hand Exposure: Yes ( smoked a pipe); Hx Alcohol Use: No Hx Substance Use: No Preferred Language: Lithuanian Communication Ability: Effective Visual Impairment: Diminished Hearing Ability: Normal 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 Beliefs That Will Affect Care: None and Rastafarian Rastafarian Beliefs: She said she believes in God marital status: / Current Living Situation: Alone current occupational status: retired Feels Safe at Home: Yes Childhood Exposure to Second-Hand Smoke: No caffeine: No Dental Care, Regularly: Yes Physical Activity Frequency: Does not Exercise Seatbelt Use: always Sunscreen Use: No Review of Systems Review of Systems: All systems reviewed & are unremarkable except as noted in HPI & below Caveat: History limited by - Confusion Constitutional: no fever and no chills Eyes: no diplopia and no spots in vision Ear, Nose, Mouth, Throat: no nasal congestion, no nasal obstruction and no epistaxis Respiratory: no cough and no dyspnea Cardiovascular: no chest pain, no syncope and no edema Gastrointestinal: no abdominal pain, no nausea and no vomiting Genitourinary: no dysuria and no urinary frequency Musculoskeletal: no back pain and no neck pain Integumentary: no acne and no rash Neurologic: as per Subjective / HPI; no falls, no numbness and no syncope Physical Exam Constitutional: + thin, cooperative and comfortable; no acute distress Eyes: PERRL, conjunctivae normal, anicteric sclerae ENMT: external ear and nose normal, oropharynx normal Neck: normal visual inspection and trachea midline Respiratory: normal respiratory effort, lungs clear to auscultation Cardiovascular: Rate/Rhythm: regular rate and regular rhythm Extremities: no pedal edema and no edema Gastrointestinal (Abdomen): Percussion/Palpation: abdomen soft; abdomen nontender, no guarding and abdomen not rigid Musculoskeletal: Head/Neck/Chest: normocephalic and head atraumatic Skin: no rashes, warm and dry Neurologic: CN's II-XI intact bilaterally, moves all extremities, awake and + confused; no focal motor deficits Psychiatric: Orientation: alert, oriented to person, oriented to place (knew [place], not name of hospital) and cooperative; + not oriented to time (October 05, does not know year) Apperance: appropriately groomed Eye Contact: good eye contact Speech: normal rate/rhythm/volume of speech Affect: euthymic affect Insight: + poor insight Judgement: + poor judgement Results & Data Results & Data ([facility]) Vital Signs (Past 12 Hours) Vital Signs Temp Pulse Pulse Resp BP BP Pulse Ox 11/06/19 18:23 70 22 159/96 H 97 11/06/19 16:50 36.6 C 70 18 158/60 H 95 Laboratory Results Laboratory Results - last 24 hr 11/06/19 11/06/19 11/06/19 17:35 17:35 17:35 WBC 5.59 RBC 4.34 Hgb 13.2 Hct 39.6 MCV 91.2 MCH 30.4 MCHC 33.3 RDW Std Deviation 42.8 RDW Coeff of Marielos 12.7 Plt Count 178 MPV 10.7 H Immature Gran % (Auto) 0.2 Neut % (Auto) 54.8 Lymph % (Auto) 31.5 [place] % (Auto) 8.8 Eos % (Auto) 4.3 Baso % (Auto) 0.4 Neut # (Auto) 3.07 Lymph # (Auto) 1.76 [place] # (Auto) 0.49 Eos # (Auto) 0.24 Baso # (Auto) 0.02 Immature Gran # (Auto) 0.01 PT 10.9 INR 1.0 APTT 23.4 PTT Ratio 0.8 Sodium 141 Potassium 3.9 Chloride 105 Carbon Dioxide 31 Anion Gap 5.0 BUN 10 Creatinine 0.76 Est Cr Clr Drug Dosing 54.3 Est GFR ( Amer) 85.3 Est GFR (Non-Af Amer) 73.6 BUN/Creatinine Ratio 13.4 Glucose 97 Calcium 8.9 Total Bilirubin 0.4 AST 16 ALT 20 Alkaline Phosphatase 68 Troponin I < 0.015 Total Protein 6.6 Albumin 3.6 Globulin 3.0 Albumin/Globulin Ratio 1.2 Lipase 202 Urine Color Urine Appearance Urine pH Ur Specific [place] Urine Protein Urine Glucose (UA) Urine Ketones Urine Blood Urine Nitrite Urine Bilirubin Urine Urobilinogen Ur Leukocyte Esterase Urine WBC (Auto) Urine RBC (Auto) U Hyaline Cast (Auto) U Epithel Cells (Auto) Urine Bacteria (Auto) 11/06/19 19:00 WBC RBC Hgb Hct MCV MCH MCHC RDW Std Deviation RDW Coeff of [place]iel[place] Plt Count MPV Immature Gran % (Auto) Neut % (Auto) Lymph % (Auto) [place] % (Auto) Eos % (Auto) Baso % (Auto) Neut # (Auto) Lymph # (Auto) [place] # (Auto) Eos # (Auto) Baso # (Auto) Immature Gran # (Auto) PT INR APTT PTT Ratio Sodium Potassium Chloride Carbon Dioxide Anion Gap BUN Creatinine Est Cr Clr Drug Dosing Est GFR ( Amer) Est GFR (Non-Af Amer) BUN/Creatinine Ratio Glucose Calcium Total Bilirubin AST ALT Alkaline Phosphatase Troponin I Total Protein Albumin Globulin Albumin/Globulin Ratio Lipase Urine Color Yellow Urine Appearance Clear Urine pH 8.0 H Ur Specific [place] 1.012 Urine Protein Negative Urine Glucose (UA) Negative Urine Ketones Negative Urine Blood Negative Urine Nitrite Negative Urine Bilirubin Negative Urine Urobilinogen Negative Ur Leukocyte Esterase Trace H Urine WBC (Auto) 1-5 Urine RBC (Auto) 0-4 U Hyaline Cast (Auto) 1-5 U Epithel Cells (Auto) 10-20 H Urine Bacteria (Auto) Negative Diagnostic Findings CT Head IMPRESSION: 1. Chronic findings as above without acute intracranial abnormality. 2. Unchanged probable meningioma of the right middle cranial fossa, 1.4 cm. CXR IMPRESSION: 1. No acute process. 2. Prior granulomatous disease. Code Status & VTE Plan VTE Prophylaxis Plan VTE Prophylaxis will be ordered: Yes Supervising Physician Co-Signing Physician Notes Attending addendum: I have physically seen this patient, have supervised the medical residents activities, and agree with the H&P unless as otherwise noted. Assessment and Plan: Confusion/cognitive decline- Previous imaging shows chronic small vessel disease and recurrent infarcts left caudate body and left periventricular white matter. Order MRI to assess for possible new stroke as cause. Minimize sedating medications Patient is no longer considered safe to return to independent living. Hypertension- Lisinopril/HCTZ 10/12.5 daily and metoprolol succinate 25 mg p.o. daily with hold parameters Meningioma- Stable on imaging in the past, will compare it with new MRI. Remaining orders and notations as noted Resident Activity Tracking Resident Involvement: Resident Care Provided Care Provided: Adult Hospital Medicine
[2019-11-06] MEDS ORDERED: MELATONIN 3 MG TAB PO PRN (23:38)
[2019-11-06] MEDS ORDERED: ACETAMINOPHEN 325 MG TAB PO PRN (23:38)
[2019-11-06] MEDS ORDERED: ONDANSETRON INJ 2 MG/ML 2 ML VIAL IV PRN (23:38)
[2019-11-06] MEDS ORDERED: TRAZODONE HCL 50 MG TAB PO ONE (23:45)
[2019-11-07 07:04] VITALS: BP 139/67; PULSE 70; TEMP 98.1; O2SAT 92
--- NOTE | 2019-11-07 07:16 | Magnetic Resonance Report ---
MR ANGIOGRAPHY OF THE [place] NO CONTRAST CLINICAL HISTORY: confusion POSSIBLE STROKE COMPARISON STUDY: None. A 3-D [id number] MR angiographic sequence of the [place] was performed. Both the source and projection images were reviewed. There is no evidence of major intracranial branch occlusion. There is no evidence of intracranial vilma nosis. There are no lesions suspicious for aneurysm. Multiple lacunar infarcts are visualized. Study is mildly limited from a technical standpoint. IMPRESSION: 1. No evidence of aneurysm. No evidence of major intracranial branch occlusion or stenosis ACT 112: Negative or not required by law. Electronically signed by: Bob Ly M.D. 11/07/2019 7:14 AM
--- NOTE | 2019-11-07 07:43 | Magnetic Resonance Report ---
MRI OF THE BRAIN WITHOUT CONTRAST CLINICAL HISTORY: confusion COMPARISON STUDY: 08/19/2018 FINDINGS: Sagittal T1, axial diffusion, proton density and T2 weighted axial, coronal FLAIR, and axial T1-weigh duncan images were acquired. 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 This is difficult to evaluate on this noncontrast study. There is a stable T1 hypointense right total bone lesion. Axial diffusion-weighted images reveal no evidence of acute or subacute infarction. There is no evidence of ventricular dilatation. Proton density T2-weighted and FLAIR images reveal scattered foci of increased T2 signal within the w isabella matter, likely on a small vessel basis. There are old left basal ganglial lacunar infarcts. There are no abnormal flow voids. IMPRESSION: 1. No acute intracranial findings 2. Foci of increased T2 signal within the white matter likely on a small vessel basis. Old lacunar in farcts. 3. The patient's known right sphenoid wing meningioma is difficult to visualize on this noncontrast s tudy, but is felt to be unchanged in size. ACT 112: Negative or not required by law. Electronically signed by: Bob Ly M.D. 11/07/2019 7:42 AM
[2019-11-07] MEDS ORDERED: VENLAFAXINE HCL XR 150 MG CAPXR PO SCH (09:00)
[2019-11-07] MEDS ORDERED: LISINOPRIL/HCTZ 10/12.5MG TAB PO SCH (09:00)
[2019-11-07] MEDS ORDERED: METOPROLOL SUCC 25MG EXT REL TAB PO SCH (09:00)
--- NOTE | 2019-11-07 11:14 | Neurology Consultation ---
Date of Consultation November 07, 2019 Assessment & Plan (1) Dementia: (2) Meningioma: (3) Confusion: I suspect this patient has an underlying dementia which appears to be of at least mild to moderate severity. Her dementia may be of the mixed type although she does have significant bilateral hippocampal atrophy on MRI which may suggest Alzheimer's disease. No evidence of acute or subacute stroke. I do not think her chronic stable meningioma is clinically significant at this time. There is no clinical evidence to suggest seizures in this patient. Consider starting donepezil 5 mg at bedtime. This medication could be started now or as an outpatient. I am uncertain if patient's current living situation is appropriate. She may need a greater degree of supervision in light of what appears to be a progressive mild to moderate dementia. May need to have social work involvement for assistance. Patient may follow-up with me as an outpatient within the next 2 to [address] Carter, hospitalist History of Present Illness Reason for Consultation: Confusion, TIA? Requesting Physician: Brennan Buckley DO Attending Physician: Art Carter History of Present Illness The patient is an 83-year-old female who is known to me. She presented to the emergency department yesterday for further assessment of confusion. She was apparently found by apartment staff behaving in a confused fashion although patient denied experiencing any problems. Patient's confusion was corroborated by her niece who indicated the problem may be more subacute. The patient is and lives alone, she has been having mild difficulty with memory but no thing that has greatly affected her general functioning. She no longer drives. 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 I last saw her in clinic for this issue on April 28, 2019. The meningioma has been treated with gamma knife several years ago at [facility] and has been radiographically stable. This patient also has considerable anxiety at baseline and has been prescribed several different medications including BuSpar, clonazepam, and Effexor. She follows with her PCP and a psychiatrist for ongoing management of her mood. She did perform poorly on a slums cognitive assessment administered by her PCP this past July, scoring 13 out of 30 points. She did have some follow-up lab evaluation at that time including a vitamin B12 level which was normal and a TSH which was normal as well. She has not been prescribed any specific treatment for dementia or memory loss. The patient does recognize me this morning and seems to be anxious to go home. She does admit that she has been having some difficulty with her memory but states that she feels fine this morning. She does appear to be at least moderately confused and is not really a very reliable historian. Initial assessments during this hospitalization did not reveal any obvious signs of infection. She denies any falls recently. Neuro imaging including a CT of the head, brain MRI, and MRA of the head did not reveal any evidence of an acute process and are described in further detail below. Allergies Allergy/AdvReac Type Severity Reaction Status Date / Time Penicillins Allergy Intermediate HIVES Verified 08/21/19 10:28 Sulfa (Sulfonamide Allergy Intermediate Hives Verified 08/21/19 10:28 Antibiotics) adhesive Allergy Mild redness Verified 08/21/19 10:28 aspirin Allergy Unknown Unknown Verified 08/21/19 10:28 atorvastatin Allergy Unknown unknown Verified 08/21/19 10:28 Cipro Allergy Unknown ? Unverified 06/22/15 15:06 ciprofloxacin Allergy Unknown Unknown Verified 08/21/19 10:28 clindamycin Allergy Unknown Unknown Verified 08/21/19 10:28 erythromycin base Allergy Unknown Unknown Verified 08/21/19 10:28 escitalopram Allergy Unknown Unknown Verified 08/21/19 10:28 etodolac Allergy Unknown Unknown Verified 08/21/19 10:28 meloxicam Allergy Unknown unknown Verified 08/21/19 10:28 metronidazole Allergy Unknown Unknown Verified 08/21/19 10:28 naloxone [From Talwin NX] Allergy Unknown Unknown Verified 08/21/19 10:28 omeprazole Allergy Unknown Unknown Verified 08/21/19 10:28 pentazocine Allergy Unknown Unknown Verified 08/21/19 10:28 polyethylene glycol 400 Allergy Unknown Unknown Verified 08/21/19 10:28 [From Systane (propylene glycol)] propylene glycol Allergy Unknown Unknown Verified 08/21/19 10:28 [From Systane (propylene glycol)] pseudoephedrine Allergy Unknown Unknown Verified 08/21/19 10:28 temazepam Allergy Unknown Unknown Verified 08/21/19 10:28 tramadol Allergy Unknown Unknown Verified 08/21/19 10:28 fluvoxamine AdvReac Mild GI SYMPTOMS Verified 08/21/19 10:28 gabapentin AdvReac Mild gi symptoms Verified 11/06/19 23:41 hydralazine AdvReac Mild gi symptoms Verified 11/06/19 23:41 meclizine AdvReac Mild nausea/ Verified 08/21/19 10:28 vomiting prednisone AdvReac Mild thrush Verified 11/06/19 23:41 promethazine AdvReac Mild gi symptoms Verified 08/21/19 10:28 quetiapine AdvReac Mild gi symptoms Verified 08/21/19 10:28 risperidone AdvReac Mild GI SYMPTOMS Verified 08/21/19 10:28 Home Medications Home Medications Medication Instructions Recorded Confirmed Type buspirone 7.5 mg tablet 7.5 mg PO BID 11/07/18 11/06/19 History cholecalciferol (vitamin D3) 10 400 unit PO QAM 11/07/18 11/06/19 History mcg (400 unit) tablet cyanocobalamin (vitamin B-12) 500 500 mcg PO QAM 11/07/18 11/06/19 History mcg tablet propylene glycol 0.6 % eye drops 1 drp OPHTHALMIC (EYE) Q6H PRN 11/07/18 11/06/19 History trazodone 100 mg tablet 100 mg PO HS tab 11/07/18 11/06/19 History venlafaxine 150 mg 150 mg PO QAM 11/07/18 11/06/19 History capsule,extended release 24 hr metoprolol succinate 25 mg 25 mg PO DAILY #90 tab 01/02/19 11/06/19 Rx tablet,extended release 24 hr lisinopril 10 1 tab PO QAM #90 tab 06/12/19 11/06/19 Rx mg-hydrochlorothiazide 12.5 mg tablet albuterol sulfate 2 puffs INH Q6H PRN 11/06/19 11/06/19 History benzonatate [Tessalon Perles] 100 mg PO BID PRN 11/06/19 11/06/19 History clonazepam See Rx Instructions .ROUTE .COMPLEX 11/06/19 11/06/19 History magnesium hydroxide [Milk of 5 ml PO DAILY PRN 11/06/19 11/06/19 History Magnesia] montelukast [Singulair] 5 mg PO DAILY 11/06/19 11/06/19 History simvastatin 10 mg PO QPM 11/06/19 11/06/19 History triamcinolone acetonide 1 applic TOPICAL BID PRN 11/06/19 11/06/19 History Patient History Medical History Allergic rhinitis due to dust Anxiety disorder Asthma inhaler prn Atypical chest pain Breast mass Cerebral atherosclerosis following with Dr. Rodríguez Constipation Dysphagia Prior evaluation Fibromyalgia Gastroesophageal reflux disease Glaucoma Head pain following with Dr. Rodríguez History of Holter monitoring wore recently 08/2019, no result yet, d/t pain in chest/breast area Hyperlipidemia Hypertension Insomnia Meningioma (~2014) Mild cognitive impairment Nontoxic multinodular goiter Osteoarthritis of left knee Osteopenia Poor historian Rectal bleeding ? reason for colonoscopy?? Skin lesion of back 4mm flesh colored mole, center of back. SNHL (sensorineural hearing loss) Surgical History History of cataract surgery unsure which eye History of colonoscopy History of tooth extraction partial upper/lower denture Family History Brother Acute myocardial infarction Stroke syndrome Family history of diabetes mellitus Sister Family history of diabetes mellitus Unknown Ovarian cancer Heart disease Hypertension Mother Ovarian cancer Brother Family history of diabetes mellitus Sister Family history of diabetes mellitus Other No family history of adverse response to anesthesia Social History Smoking Status: Unknown if ever smoked Age Started Using Tobacco: 21; Age Quit Using Tobacco: 22; packs per day: 0.5; Cigarettes Per Day: 10; Second Hand Exposure: Yes ( smoked a pipe); Do You Dip or Chew Tobacco: No; Hx Alcohol Use: No Hx Substance Use: No Preferred Language: Kosovan Communication Ability: Confused Visual Impairment: Diminished Hearing Ability: Normal Clinical Abstractor Required: No Beliefs That Will Affect Care: None and Sikhism Sikhism Beliefs: She said she believes in God marital status: / Current Living Situation: Alone current occupational status: retired Other Information That Helps Us Care for You: No Feels Safe at Home: Yes Safety Concerns: Feels Safe At This Time Childhood Exposure to Second-Hand Smoke: No caffeine: No Dental Care, Regularly: Yes Physical Activity Frequency: Does not Exercise Seatbelt Use: always Sunscreen Use: No Review of Systems Constitutional: no fever and no chills Eyes: no blind spots and no diplopia Ear, Nose, Mouth, Throat: no ear pain and no hearing loss Respiratory: no cough and no dyspnea Cardiovascular: no chest pain and no palpitations Gastrointestinal: no nausea and no vomiting Genitourinary: no dysuria Musculoskeletal: no myalgia Integumentary: no rash and no lesions Neurologic: + confusion and + memory loss; no gait abnormality, no localized weakness, no loss of sensation, no tremor(s), no seizure-like activity, no syncope and no headache(s) Psychiatric: + anxiety Hematologic / Lymphatic: no easy bleeding and no easy bruising Exam (Neuro) Constitutional: well developed and well nourished; no acute distress Eyes: normal visual romero by confrontation, PERRL, normal accommodation and EOM intact bilaterally; no fundoscopic abnormality, no nystagmus and no papilledema Cardiovascular: Vessels: normal carotid upstroke; no carotid bruit Neurologic: Oriented to:: Person; negative Place and Time Memory: Remote Intact; negative Short Term Intact (0 out of 3) Attention: Span Intact; negative Concentration Intact (2 out of 5 world backwards) Language: Naming Objects and Repeating Phrases Speech Fluency: negative Dysarthria Speech Aphasia: negative Aphasia Fund of Knowledge: Past History and Vocabulary; negative Current Events Cranial Nerves: Normal II (Visual romero full to conf rontation, visual acuity normal), III, IV, (Pupils equal round reactive to light and accommodation, eye movements normal), V (Facial sensation intact), VII (There is no facial droop or weakness), VIII (Hearing intact), IX, X (Palate elevates to midline), XI (Shoulder shrug intact) and XII (Tongue protrudes to midline) Motor Strength: Normal Lower Extremities and Normal Upper Extremities; negative Pronator Drift Motor Tone: Normal Lower Extremities and Normal Upper Extremities Muscle Bulk/Involuntary Movements: No Involuntary Movements; negative Muscle Atrophy Sensation: Light Touch Intact, Pain/Temperature Intact, Vibration Intact and Proprioception Intact Coordination: Normal; negative Limited Balance, Dysdiadochokinesia, Finger-Nose Abnormal and Heel-Felder Abnormal Deep Tendon Reflexes: Rt Triceps: 2+, Lt Triceps: 2+, Rt Biceps: 2+, Lt Biceps: 2+, Rt Brachioradialis: 2+, Lt Brachioradialis: 2+, Rt Patellar: 2+, Lt Patellar: 2+, Rt Ankle: 2+ and Lt Ankle: 2+ Special Tests: negative Babinski Present Gait: Normal Station and Gait Details: Unable to correctly copy intersecting pentagons Results & Data ([facility]) Vital Signs (Past 12 Hours) Vital Signs Temp Pulse Resp BP Pulse Ox 11/07/19 07:02 36.7 C 70 18 139/67 92 11/07/19 00:56 18 11/07/19 00:09 84 175/79 H 11/06/19 23:20 36.5 C 71 18 193/91 H 96 Laboratory Results WBC 5.59, hemoglobin 13.2, hematocrit 39.6, platelet count 178, sodium 141, potassium 3.9, BUN 10, creatinine 0.76, glucose 97, troponin less than 0.015, AST 16, ALT 20 Lipid panel from July 14, 2019: Triglycerides 128, cholesterol 144, LDL 73, VLDL 26, HDL 45. Vitamin B12 level 1030, TSH 1.[address] of the head reveals an unchanged right middle cranial fossa meningioma measuring 1.4 cm in size. No evidence of hemorrhage or acute process. MRI of the brain again depicts this patient's 1.4 cm right sphenoid wing meningioma, not as well visualized on this noncontrast study, however. MRI was negative for hemorrhage or acute process. Patient does have notable bilateral hippocampal atrophy. No findings suggestive of NPH. MRA of the head negative for aneurysm or major intracranial branch occlusion or stenosis. I reviewed the images as well as the radiologist's interpretation of these tests. Electrocardiogram reveals a normal sinus rhythm, 72 bpm Coding Level of Care Code 96064 Initial Inpt Care Lvl 3 Diagnoses Dementia F03.90 Meningioma D32.9 Confusion R41.0
--- NOTE | 2019-11-07 20:23 | Billing Data ---
Date of Service November 07, 2019 Coding Level of Care Code 58950 Initial Inpt Care Lvl 2
[2019-11-07] MEDS ORDERED: TRAZODONE HCL 100 MG TAB PO SCH (21:00)
--- NOTE | 2019-11-07 22:13 | Electrocardiogram Report ---
Test Reason : Blood Pressure : / mmHG Vent. Rate : 072 BPM Atrial Rate : 072 BPM P-R Int : 134 ms QRS Dur : 082 ms QT Int : 396 ms P-R-T Axes : 041 019 051 degrees QTc Int : 433 ms Normal sinus rhythm Normal ECG When compared with ECG of 03-DEC-2018 14:37, No significant change was found Confirmed by Clement Harris ([id number]) on 11/07/2019 10:12:56 PM Referred By: REFERRED SELF Confirmed By:Clement Harris
--- NOTE | 2019-11-13 23:30 | Discharge Summary ---
Date of Service November 07, 2019 Admission HPI Per Admitting Provider Caveat: History Limited by Confusion Priscilla Hernandez is a 83 y/o female with past medical hx of HTN, HLD, anxiety, insomnia, cerebral atheroslerosis, meningioma (chronic 2014), mild cognitive impairment, OA, GERD, who presented to [facility] for confusion. Great Niece is POA and with patient. She notes that she was told patient was wondering around outside confused around noon today. Patient lives by herself in independent living in an apartment. Her neighbor noticed she was outside and acting confused and EMS was contacted. Patient cannot recall events leading or why she needed to come to hospital. She notes she has no complaints. Daughter notes it is unusual for her to be wondering around out front of apartment. She notes that her Grandfather took her grocery shopping either yesterday or the day bef ore. She denies any fever, chills, head injury, falls, weakness, numbness, chest pain, shortness of breath. Great Niece acknowledges that this could be worsening cognitive process. Principal Diagnosis confusion Discharge Exam Constitutional: + thin, cooperative and comfortable; no acute distress Eyes: PERRL, conjunctivae normal, anicteric sclerae ENMT: external ear and nose normal, oropharynx normal Neck: normal visual inspection and trachea midline Respiratory: normal respiratory effort, lungs clear to auscultation Cardiovascular: Rate/Rhythm: regular rate and regular rhythm Extremities: no pedal edema and no edema Gastrointestinal (Abdomen): Percussion/Palpation: abdomen soft; abdomen nontender, no guarding and abdomen not rigid Musculoskeletal: Head/Neck/Chest: normocephalic and head atraumatic Skin: no rashes, warm and dry Neurologic: CN's II-XI intact bilaterally, moves all extremities, awake and + confused; no focal motor deficits Psychiatric: Orientation: alert, oriented to person, oriented to place (knew [facility], not name of hospital) and cooperative; Discharge Data Allergies Allergy/AdvReac Type Severity Reaction Status Date / Time Penicillins Allergy Intermediate HIVES Verified 08/21/19 10:28 Sulfa (Sulfonamide Allergy Intermediate Hives Verified 08/21/19 10:28 Antibiotics) adhesive Allergy Mild redness Verified 08/21/19 10:28 aspirin Allergy Unknown Unknown Verified 08/21/19 10:28 atorvastatin Allergy Unknown unknown Verified 08/21/19 10:28 Cipro Allergy Unknown ? Unverified 06/22/15 15:06 ciprofloxacin Allergy Unknown Unknown Verified 08/21/19 10:28 clindamycin Allergy Unknown Unknown Verified 08/21/19 10:28 erythromycin base Allergy Unknown Unknown Verified 08/21/19 10:28 escitalopram Allergy Unknown Unknown Verified 08/21/19 10:28 etodolac Allergy Unknown Unknown Verified 08/21/19 10:28 meloxicam Allergy Unknown unknown Verified 08/21/19 10:28 metronidazole Allergy Unknown Unknown Verified 08/21/19 10:28 naloxone [From Talwin NX] Allergy Unknown Unknown Verified 08/21/19 10:28 omeprazole Allergy Unknown Unknown Verified 08/21/19 10:28 pentazocine Allergy Unknown Unknown Verified 08/21/19 10:28 polyethylene glycol 400 Allergy Unknown Unknown Verified 08/21/19 10:28 [From Systane (propylene glycol)] propylene glycol Allergy Unknown Unknown Verified 08/21/19 10:28 [From Systane (propylene glycol)] pseudoephedrine Allergy Unknown Unknown Verified 08/21/19 10:28 temazepam Allergy Unknown Unknown Verified 08/21/19 10:28 tramadol Allergy Unknown Unknown Verified 08/21/19 10:28 fluvoxamine AdvReac Mild GI SYMPTOMS Verified 08/21/19 10:28 gabapentin AdvReac Mild gi symptoms Verified 11/06/19 23:41 hydralazine AdvReac Mild gi symptoms Verified 11/06/19 23:41 meclizine AdvReac Mild nausea/ Verified 08/21/19 10:28 vomiting prednisone AdvReac Mild thrush Verified 11/06/19 23:41 promethazine AdvReac Mild gi symptoms Verified 08/21/19 10:28 quetiapine AdvReac Mild gi symptoms Verified 08/21/19 10:28 risperidone AdvReac Mild GI SYMPTOMS Verified 08/21/19 10:28 Consultations 11/06/19 19:31 ED Decision to Admit Stat 11/06/19 23:38 Consult Case Management - Discharge Planning Routine Consult Neurology Routine Ordered Studies 11/06/19 17:03 CT head/brain wo con Stat 11/06/19 20:48 MR angio head wo con Urgent MR brain wo con Urgent Hospital Course (1) Confusion: Appreciate input from Neuro: I suspect this patient has an underlying dementia which appears to be of at least mild to moderate severity. Her dementia may be of the mixed type although she does have significant bilateral hippocampal atrophy on MRI which may suggest Alzheimer's disease. No evidence of acute or subacute stroke. I do not think her chronic stable meningioma is clinically significant at this time. There is no clinical evidence to suggest seizures in this patient. Consider starting donepezil 5 mg at bedtime. This medication could be started n ow or as an outpatient. I am uncertain if patient's current living situation is appropriate. She may need a greater degree of supervision in light of what appears to be a progressive mild to moderate dementia. May need to have social work involvement for assistance. Patient may follow-up with [facility] as an outpatient within the next 2 to 3 weeks. (2) Insomnia: (3) Mild cognitive impairment: (4) Hypertension: (5) Hyperlipidemia: (6) Gastroesophageal reflux disease: (7) Meningioma: Total Time Total Time Spent Total Time Spent (In Minutes): 32 Discharge Plan Discharge Items Patient Disposition: Home - Self-Care Reason For Visit: CONFUSION Discharge Diagnosis: confusion Activity: Resume your previous activity Non-emergency contact: Primary Care Provider Call non-emergency contact if: you have any medication questions Follow-up/Referrals: Nando Horton, [Primary Care Provider] - 11/14/19 11:30 am (You have a discharge follow up appt with Dr Horton nevaehNov 13, at 1130. Please arrive 15 minutes prior to your appt time, and remember your face mask. If this appt does not fit your schedule please call [phone] to reschedule. ) Diet: Heart Healthy Addtl Attending Provider Instructions: You were seen for an episode of confusion. I discussed care with your Neurologist. He feels this is a progression fo your demntia. I will start you on donezepil to help with your memory. Will recommend followup with Neurology in 2-4 weeks. followup with PCP in 1-2 weeks Take Donepezil in the evening at bedtime. Pending Studies at Discharge: No Stand-Alone Forms: My [employer], Smoking Cessation Medications and DC Order Prescriptions: New donepezil 5 mg tablet 5 mg PO DAILY Qty: 30 RF: 0 Continued metoprolol succinate 25 mg tablet extended release 24 hr 25 mg PO DAILY Qty: 90 RF: 3 lisinopril-hydrochlorothiazide 10-12.5 mg tablet 1 tab PO QAM Qty: 90 RF: 3 trazodone 100 mg tablet 100 mg PO HS RF: 0 venlafaxine [Effexor XR] 150 mg capsule,extended release 24hr 150 mg PO QAM RF: 0 cholecalciferol (vitamin D3) 400 unit tablet 400 unit PO QAM RF: 0 cyanocobalamin (vitamin B-12) 500 mcg tablet 500 mcg PO QAM RF: 0 buspirone 7.5 mg tablet 7.5 mg PO BID RF: 0 Systane Balance 0.6 % drops 1 drp OPHTHALMIC (EYE) Q6H PRN (Reason: Dry Eye(S)) RF: 0 simvastatin 10 mg tablet 10 mg PO QPM RF: 0 triamcinolone acetonide 0.1 % cream 1 applic TOPICAL BID PRN (Reason: Rash) RF: 0 montelukast [Singulair] 5 mg tablet,chewable 5 mg PO DAILY RF: 0 clonazepam 0.5 mg tablet See Rx Instructions .ROUTE .COMPLEX RF: 0 magnesium hydroxide [Milk of Magnesia] 400 mg/5 mL suspension 5 ml PO DAILY PRN (Reason: Stomach Upset) RF: 0 benzonatate [Tessalon Perles] 100 mg capsule 100 mg PO BID PRN (Reason: Cough) RF: 0 albuterol sulfate 90 mcg/actuation HFA aerosol inhaler 2 puffs INH Q6H PRN (Reason: Shortness Of Breath Or Wheezing) RF: 0 Discharge Orders: Discharge Order (Routine); Ordered 11/07/19 Ordered By: Art Carter Admission Data Admit Date/Time: 11/06/19 20:38 Attending Provider: Art Carter Admit Provider: Brennan Buckley Primary Care Provider: Nando Horton Other Providers: Tone Alvarado ; Nando Rodríguez Other Interventions: Discharge Summary Assessment (RN) Last Done: 11/07/19 11:41 Coding Level of Care Code D/C Day Management >30 mins Diagnoses Confusion R41.0 Insomnia G47.00 Mild cognitive impairment G31.84 Hypertension I10 Hypertension type: unspecified Hyperlipidemia E78.5 Gastroesophageal reflux disease K21.9 Meningioma D32.9 Time Spent (min) 32
== END 2019-11-07 14:00 | disposition home or self-care (01) ==
LOC: 2W 16:49 → ED 16:49 → SUATTDRO 20:38 → 2W 22:09
DX: R41.0 Disorientation, unspecified; G31.84 Mild cognitive impairment of uncertain or unknown etiology; J45.909 Unspecified asthma, uncomplicated; Z88.8 Allergy status to other drugs, medicaments and biological substances; Z88.0 Allergy status to penicillin; I10 Essential (primary) hypertension; H90.5 Unspecified sensorineural hearing loss; E78.5 Hyperlipidemia, unspecified; G47.00 Insomnia, unspecified; Z88.6 Allergy status to analgesic agent; Z88.2 Allergy status to sulfonamides; D32.9 Benign neoplasm of meninges, unspecified; M79.7 Fibromyalgia; Z79.899 Other long term (current) drug therapy

== ENCOUNTER 2020-03-27 14:59 | Inpatient (IN) ==
[2020-03-27] MEDS ORDERED: SODIUM CHLORIDE 0.9% 500 ML IV SCH (15:30)
--- NOTE | 2020-03-27 15:30 | Emergency Department Note ---
Impression & Plan Acute GI bleeding, COVID-19, Acute hypokalemia ED Provider Note NAME: STEPHANIE JO AGE: 84 SEX: F : 1935 ARRIVES VIA: Ambulance INFORMANT: Patient ED PROVIDER(S): Renny Magallanes DO CHIEF COMPLAINT: GI bleed HPI: Patient is an 84-year-old female who presents to the ER for bright red blood per rectum. Patient has had this multiple times today. She notes that she does feel weak. She denies any headache or change in vision. No chest pain or shortness of breath. She has pain in her lower belly which is constant and achy. She did have some vomiting as well. No dysuria, urgency or frequency. No other exacerbating or remitting factors. She denies taking any blood thinners. ROS: See above HPI for pertinent positives & negatives. A total of 10 systems reviewed and were otherwise negative. PAST MEDICAL HISTORY:See Below PAST SURGICAL HISTORY:See Below FAMILY HISTORY:See Below SOCIAL HISTORY:See Below HOME MEDICATIONS:See Below ALLERGIES:See Below VITALS:See Below PHYSICAL EXAMINATION: GENERAL: Sitting up in bed, alert, disheveled, cachectic, anxious EYE EXAM: normal conjunctiva. OROPHARYNX: no exudate, no erythema, lips, buccal mucosa, and tongue normal and mucous membranes are moist NECK: supple, no nuchal rigidity, no adenopathy, non-tender LUNGS: Clear to auscultation. Normal chest wall mechanics HEART: no murmurs, S1 normal and S2 normal ABDOMEN: abdomen soft, non-tender, normo-active bowel sounds, no masses, no rebound or guarding. Rectal: Heme positive stool UPPER EXTREMITIES: upper extremities are grossly normal. LOWER EXTREMITIES: No pitting edema. NEURO EXAM: Oriented to person, place and year, cranial nerves II-XII grossly intact, normal speech, no gross weakness of arms, no gross weakness of legs. MEDICAL DECISION MAKING: Patient is an 84-year-old female who presents the ER for bright red blood per rectum. She has had multiple episodes of this earlier today. She does feel weak throughout. She has lower belly pain. IV was established blood work was obtained. Labs show leukocytosis of 15,000. No significant anemia. INR was unremarkable. BMP with mild hypokalemia. LFTs bilirubin and troponin were unremarkable. Rectal heme positive but no external hemorrhoids. Covid positive. Patient was typed and crossed. CT abdomen pelvis shows no acute pathology in the abdomen but lower lobe infiltrates. Chest x-ray with hazy opacities as well. Do favor this is the likely Covid infection. Patient was updated bedside. She given fluids and discussed with the hospitalist for observation. Triage Nursing notes reviewed. Limited review of prior medical records performed Vital Signs: reviewed and remarkable for no significant abnormalities Differential diagnosis: Differential diagnoses includes but is not limited to gastritis, peptic ulcer disease, GERD, gallbladder disease, pancreatitis, small bowel obstruction, acute coronary syndrome, pericarditis, ischemic bowel, irritable bowel disease, irritable bowel syndrome, appendicitis, diverticulitis, malignancy, hernia, urinary tract infection, torsion, perforation, trauma, infectious. ER treatment provided: See below Diagnostics interpreted by me: ECG: Rate of 68 Normal axis No PVCs QTC 446 Cardiac Monitoring: An order was placed for continuous cardiac monitoring. The monitor shows a rate of 70 with sinus rhythm. Laboratory studies: As stated above and show below. Imaging studies: CT abdomen pelvis as discussed above in MDM Portable AP upright 1 view of the chest shows hazy opacities in lower lobes Consultation(s): Discussed with Dr. Sven Ramesh for further evaluation Procedures: none Critical Care: None Past Med/Surg History Medical History (Updated 03/27/20 @ 19:09 by Renny Magallanes DO) Allergic rhinitis due to dust Anxiety disorder Asthma inhaler prn Atypical chest pain Breast mass Cerebral atherosclerosis following with Dr. Rodríguez Confusion Constipation Dysphagia Prior evaluation Fibromyalgia Gastroesophageal reflux disease Glaucoma Head pain following with Dr. Rodríguez History of Holter monitoring wore recently 08/2019, no result yet, d/t pain in chest/breast area Hyperlipidemia Hypertension Insomnia Meningioma (~2014) Mild cognitive impairment Nontoxic multinodular goiter Osteoarthritis of left knee Osteopenia Poor historian Rectal bleeding ? reason for colonoscopy?? Skin lesion of back 4mm flesh colored mole, center of back. SNHL (sensorineural hearing loss) Surgical History History of cataract surgery unsure which eye History of colonoscopy History of tooth extraction partial upper/lower denture Family History Brother Acute myocardial infarction Stroke syndrome Family history of diabetes mellitus Sister Family history of diabetes mellitus Unknown Ovarian cancer Heart disease Hypertension Mother Ovarian cancer Brother Family history of diabetes mellitus Sister Family history of diabetes mellitus Other No family history of adverse response to anesthesia Social History Smoking Status: Never smoker Age Started Using Tobacco: 21; Age Quit Using Tobacco: 22; packs per day: 0.5; Years Smoked: 1; Cigarettes Per Day: 10; Second Hand Exposure: Yes ( smoked a pipe); Hx Alcohol Use: No Hx Substance Use: No Preferred Language: Ug[place] Communication Ability: Effective Visual Impairment: Diminished Hearing Ability: Normal Senior Advisor Required: No Beliefs That Will Affect Care: None and Confucianism Confucianism Beliefs: She said she believes in God marital status: / Current Living Situation: Alone current occupational status: retired Feels Safe at Home: Yes Childhood Exposure to Second-Hand Smoke: No caffeine: No Dental Care, Regularly: Yes Physical Activity Frequency: Does not Exercise Seatbelt Use: always Sunscreen Use: No Assistive Devices: Glasses Allergies Allergies Allergy/AdvReac Type Severity Reaction Status Date / Time Penicillins Allergy Intermediate HIVES Verified 03/11/20 13:06 Sulfa (Sulfonamide Allergy Intermediate Hives Verified 03/11/20 13:06 Antibiotics) adhesive Allergy Mild redness Verified 03/11/20 13:06 aspirin Allergy Unknown Unknown Verified 03/11/20 13:06 atorvastatin Allergy Unknown unknown Verified 03/11/20 13:06 Cipro Allergy Unknown ? Unverified 06/22/15 15:06 ciprofloxacin Allergy Unknown Unknown Verified 03/11/20 13:06 clindamycin Allergy Unknown Unknown Verified 03/11/20 13:06 erythromycin base Allergy Unknown Unknown Verified 03/11/20 13:06 escitalopram Allergy Unknown Unknown Verified 03/11/20 13:06 etodolac Allergy Unknown Unknown Verified 03/11/20 13:06 meloxicam Allergy Unknown unknown Verified 03/11/20 13:06 metronidazole Allergy Unknown Unknown Verified 03/11/20 13:06 naloxone [From Talwin NX] Allergy Unknown Unknown Verified 03/11/20 13:06 omeprazole Allergy Unknown Unknown Verified 03/11/20 13:06 pentazocine Allergy Unknown Unknown Verified 03/11/20 13:06 polyethylene glycol 400 Allergy Unknown Unknown Verified 03/11/20 13:06 [From Systane (propylene glycol)] propylene glycol Allergy Unknown Unknown Verified 03/11/20 13:06 [From Systane (propylene glycol)] pseudoephedrine Allergy Unknown Unknown Verified 03/11/20 13:06 temazepam Allergy Unknown Unknown Verified 03/11/20 13:06 tramadol Allergy Unknown Unknown Verified 03/11/20 13:06 fluvoxamine AdvReac Mild GI SYMPTOMS Verified 03/11/20 13:06 gabapentin AdvReac Mild gi symptoms Verified 03/11/20 13:06 hydralazine AdvReac Mild gi symptoms Verified 03/11/20 13:06 meclizine AdvReac Mild nausea/ Verified 03/11/20 13:06 vomiting prednisone AdvReac Mild thrush Verified 03/11/20 13:06 promethazine AdvReac Mild gi symptoms Verified 03/11/20 13:06 quetiapine AdvReac Mild gi symptoms Verified 03/11/20 13:06 risperidone AdvReac Mild GI SYMPTOMS Verified 03/11/20 13:06 Home Meds Home Medications Medication Instructions Recorded Confirmed buspirone 7.5 mg tablet 7.5 mg PO BID 11/07/18 03/27/20 cholecalciferol (vitamin D3) 10 400 unit PO QAM 11/07/18 03/27/20 mcg (400 unit) tablet cyanocobalamin (vitamin B-12) 500 500 mcg PO QAM 11/07/18 03/27/20 mcg tablet propylene glycol 0.6 % eye drops 1 drp OPHTHALMIC (EYE) Q6H PRN 11/07/18 03/27/20 trazodone 100 mg tablet 100 mg PO HS tab 11/07/18 03/27/20 venlafaxine 150 mg 150 mg PO QAM 11/07/18 03/27/20 capsule,extended release 24 hr magnesium hydroxide [Milk of 5 ml PO DAILY PRN 11/06/19 03/27/20 Magnesia] triamcinolone acetonide 1 applic TOPICAL BID PRN 11/06/19 03/27/20 Previous Rx's Medication Instructions Recorded lisinopril 10 1 tab PO QAM #90 tab 06/12/19 mg-hydrochlorothiazide 12.5 mg tablet metoprolol succinate 25 mg 25 mg PO DAILY #90 tab 12/11/19 tablet,extended release 24 hr clonazepam 0.5 mg tablet 0.5 mg PO DAILY #1 tab 12/25/19 rivastigmine tartrate 1.5 mg 1.5 mg PO BID #60 cap 02/29/20 capsule benzonatate 100 mg capsule 100 mg PO BID PRN #180 cap 03/04/20 montelukast 5 mg chewable tablet 5 mg PO DAILY #90 tab 03/04/20 simvastatin 10 mg tablet 10 mg PO QPM #90 tab 03/04/20 Results & Data (ED) Vital Signs Vital Signs - 24 hr 03/27/20 15:04 03/27/20 15:22 03/27/20 16:12 Temperature 36.8 C Temperature Source Oral Pulse Rate 70 73 Pulse Rate from SpO2 Sensor 72 Respiratory Rate 20 22 Respiratory Effort / Characteristics Non-Labored Spontaneous Respiratory Depth Normal Respiratory Pattern Regular Blood Pressure 155/73 H 167/80 H Blood Pressure Mean 100 109 Blood Pressure Position Sitting Pulse Oximetry 98 99 97 Oxygen Delivery Method Room Air Room Air Sepsis Recent Fever Within 48 Hours No Sepsis New/Unexplained Change in Mental Status N/A Sepsis Action Taken by Nursing No Action Required 03/27/20 16:13 03/27/20 16:30 03/27/20 16:31 Temperature Temperature Source Pulse Rate 77 72 73 Pulse Rate from SpO2 Sensor 77 71 74 Respiratory Rate 20 24 23 Respiratory Effort / Characteristics Respiratory Depth Respiratory Pattern Blood Pressure 152/68 H Blood Pressure Mean 96 Blood Pressure Position Pulse Oximetry 98 97 98 Oxygen Delivery Method Sepsis Recent Fever Within 48 Hours Sepsis New/Unexplained Change in Mental Status Sepsis Action Taken by Nursing 03/27/20 17:00 03/27/20 17:01 03/27/20 17:30 Temperature Temperature Source Pulse Rate 69 71 78 Pulse Rate from SpO2 Sensor 69 71 Respiratory Rate 23 22 23 Respiratory Effort / Characteristics Respiratory Depth Respiratory Pattern Blood Pressure 151/76 H 157/73 H Blood Pressure Mean 101 101 Blood Pressure Position Pulse Oximetry 96 96 96 Oxygen Delivery Method Room Air Sepsis Recent Fever Within 48 Hours Sepsis New/Unexplained Change in Mental Status Sepsis Action Taken by Nursing 03/27/20 18:00 Temperature Temperature Source Pulse Rate 78 Pulse Rate from SpO2 Sensor Respiratory Rate 19 Respiratory Effort / Characteristics Respiratory Depth Respiratory Pattern Blood Pressure 157/84 H Blood Pressure Mean 108 Blood Pressure Position Pulse Oximetry 96 Oxygen Delivery Method Room Air Sepsis Recent Fever Within 48 Hours Sepsis New/Unexplained Change in Mental Status Sepsis Action Taken by Nursing Laboratory Data Result diagrams: 03/27/20 16:19 03/27/20 16:19 Lab Results 03/27/20 03/27/20 03/27/20 Range/Units 15:24 15:24 15:24 WBC Cancelled RBC Cancelled Hgb Cancelled Hct Cancelled MCV Cancelled MCH Cancelled MCHC Cancelled RDW Std Deviation Cancelled RDW Coeff of Marielos Cancelled Plt Count Cancelled MPV Cancelled Immature Gran % (Auto) Cancelled Neut % (Auto) Cancelled Lymph % (Auto) Cancelled [place] % (Auto) Cancelled Eos % (Auto) Cancelled Baso % (Auto) Cancelled Neut # (Auto) Cancelled Lymph # (Auto) Cancelled [place] # (Auto) Cancelled Eos # (Auto) Cancelled Baso # (Auto) Cancelled Immature Gran # (Auto) Cancelled Absolute Nucleated RBC Cancelled Nucleated RBC % (auto) Cancelled Neutrophils % (Manual) Cancelled Band Neutrophils % Cancelled Lymphocytes % (Manual) Cancelled Prolymphocyte % Cancelled Reactive Lymphs % (Man) Cancelled Monocytes % (Manual) Cancelled Eosinophils % (Manual) Cancelled Basophils % (Manual) Cancelled Metamyelocytes % (Man) Cancelled Myelocytes % (Man) Cancelled Promyelocytes % (Man) Cancelled Blast Cells % (Manual) Cancelled Plasma Cell % (Manual) Cancelled Other Cells % Cancelled Nucleated RBC % Cancelled Neutrophils # (Manual) Cancelled Band Neutrophils # Cancelled Total Absolute Neuts Cancelled Lymphocytes # (Manual) Cancelled Prolymphocyte # Cancelled Reactive Lymphs # Cancelled Total Abs Lymphocytes Cancelled Monocytes # (Manual) Cancelled Eosinophils # (Manual) Cancelled Basophils # (Manual) Cancelled Metamyelocytes # (Man) Cancelled Myelocytes # (Manual) Cancelled Promyelocytes # (Man) Cancelled Blast Cells # (Man) Cancelled Plasma Cell # (Manual) Cancelled Other Cells # Cancelled Nucleated RBCs # (Man) Cancelled Hypersegmented Neuts Cancelled Hyposegmented Neuts Cancelled Hypogranular Neuts Cancelled Large Granular Lymphs Cancelled # Lrg Granular Lymphs Cancelled Hairy Cells Cancelled Smudge Cells Cancelled Toxic Granulation Cancelled Toxic Vacuolation Cancelled Dohle Bodies Cancelled Navin Rods Cancelled Platelet Estimate Cancelled Hypogranular Platelets Cancelled Clumped Platelets Cancelled Giant Platelets Cancelled Platelet Satelliting Cancelled RBC Morphology Cancelled Polychromasia Cancelled Hypochromasia Cancelled Poikilocytosis Cancelled Basophilic Stippling Cancelled Anisocytosis Cancelled Microcytosis Cancelled Macrocytosis Cancelled Spherocytes Cancelled Pappenheimer Bodies Cancelled Sickle Cells Cancelled Target Cells Cancelled Tear Drop Cells Cancelled Ovalocytes Cancelled Stomatocytes Cancelled [place] Bodies Cancelled Echinocytes Cancelled Acanthocytes (Spur) Cancelled Rouleaux Cancelled RBC Agglutinates Cancelled Schistocytes Cancelled RBC Morph Comment Cancelled Sezary Cell Cancelled PT Cancelled INR Cancelled APTT Cancelled PTT Ratio Cancelled Sodium Potassium Chloride Carbon Dioxide Anion Gap BUN Creatinine Est Cr Clr Drug Dosing Est GFR ( Amer) Est GFR (Non-Af Amer) BUN/Creatinine Ratio Glucose Calcium Total Bilirubin AST ALT Alkaline Phosphatase Troponin I Total Protein Albumin Globulin Albumin/Globulin Ratio POC Stool Occult Blood (Negative) COVID-19 Eval Order SARS-CoV-2, RNA, NAAT (NEGATIVE) Blood Type B Positive Antibody Screen NEGATIVE 03/27/20 03/27/20 03/27/20 Range/Units 15:24 16:15 16:15 WBC RBC Hgb Hct MCV MCH MCHC RDW Std Deviation RDW Coeff of Marielos Plt Count MPV Immature Gran % (Auto) Neut % (Auto) Lymph % (Auto) [place] % (Auto) Eos % (Auto) Baso % (Auto) Neut # (Auto) Lymph # (Auto) [place] # (Auto) Eos # (Auto) Baso # (Auto) Immature Gran # (Auto) Absolute Nucleated RBC Nucleated RBC % (auto) Neutrophils % (Manual) Band Neutrophils % Lymphocytes % (Manual) Prolymphocyte % Reactive Lymphs % (Man) Monocytes % (Manual) Eosinophils % (Manual) Basophils % (Manual) Metamyelocytes % (Man) Myelocytes % (Man) Promyelocytes % (Man) Blast Cells % (Manual) Plasma Cell % (Manual) Other Cells % Nucleated RBC % Neutrophils # (Manual) Band Neutrophils # Total Absolute Neuts Lymphocytes # (Manual) Prolymphocyte # Reactive Lymphs # Total Abs Lymphocytes Monocytes # (Manual) Eosinophils # (Manual) Basophils # (Manual) Metamyelocytes # (Man) Myelocytes # (Manual) Promyelocytes # (Man) Blast Cells # (Man) Plasma Cell # (Manual) Other Cells # Nucleated RBCs # (Man) Hypersegmented Neuts Hyposegmented Neuts Hypogranular Neuts Large Granular Lymphs # Lrg Granular Lymphs Hairy Cells Smudge Cells Toxic Granulation Toxic Vacuolation Dohle Bodies Navin Rods Platelet Estimate Hypogranular Platelets Clumped Platelets Giant Platelets Platelet Satelliting RBC Morphology Polychromasia Hypochromasia Poikilocytosis Basophilic Stippling Anisocytosis Microcytosis Macrocytosis Spherocytes Pappenheimer Bodies Sickle Cells Target Cells Tear Drop Cells Ovalocytes Stomatocytes [place] Bodies Echinocytes Acanthocytes (Spur) Rouleaux RBC Agglutinates Schistocytes RBC Morph Comment Sezary Cell PT INR APTT PTT Ratio Sodium Cancelled Potassium Cancelled Chloride Cancelled Carbon Dioxide Cancelled Anion Gap Cancelled BUN Cancelled Creatinine Cancelled Est Cr Clr Drug Dosing Cancelled Est GFR ( Amer) Cancelled Est GFR (Non-Af Amer) Cancelled BUN/Creatinine Ratio Cancelled Glucose Cancelled Calcium Cancelled Total Bilirubin Cancelled AST Cancelled ALT Cancelled Alkaline Phosphatase Cancelled Troponin I Cancelled Total Protein Cancelled Albumin Cancelled Globulin Cancelled Albumin/Globulin Ratio Cancelled POC Stool Occult Blood (Negative) COVID-19 [facility] SARS-[facility]-2, RNA, NAAT POSITIVE A* (NEGATIVE) Blood Type Antibody Screen 03/27/20 03/27/20 03/27/20 Range/Units 16:19 16:19 16:19 WBC 15.69 H RBC 4.59 Hgb 14.3 Hct 41.2 MCV 89.8 MCH 31.2 MCHC 34.7 RDW Std Deviation 41.8 RDW Coeff of Marielos 12.8 Plt Count 210 MPV 10.8 H Immature Gran % (Auto) 0.4 Neut % (Auto) 88.8 Lymph % (Auto) 4.7 [place] % (Auto) 5.9 Eos % (Auto) 0.1 Baso % (Auto) 0.1 Neut # (Auto) 13.94 H Lymph # (Auto) 0.74 L [place] # (Auto) 0.93 H Eos # (Auto) 0.01 Baso # (Auto) 0.01 Immature Gran # (Auto) 0.06 H Absolute Nucleated RBC Nucleated RBC % (auto) Neutrophils % (Manual) Band Neutrophils % Lymphocytes % (Manual) Prolymphocyte % Reactive Lymphs % (Man) Monocytes % (Manual) Eosinophils % (Manual) Basophils % (Manual) Metamyelocytes % (Man) Myelocytes % (Man) Promyelocytes % (Man) Blast Cells % (Manual) Plasma Cell % (Manual) Other Cells % Nucleated RBC % Neutrophils # (Manual) Band Neutrophils # Total Absolute Neuts Lymphocytes # (Manual) Prolymphocyte # Reactive Lymphs # Total Abs Lymphocytes Monocytes # (Manual) Eosinophils # (Manual) Basophils # (Manual) Metamyelocytes # (Man) Myelocytes # (Manual) Promyelocytes # (Man) Blast Cells # (Man) Plasma Cell # (Manual) Other Cells # Nucleated RBCs # (Man) Hypersegmented Neuts Hyposegmented Neuts Hypogranular Neuts Large Granular Lymphs # Lrg Granular Lymphs Hairy Cells Smudge Cells Toxic Granulation Toxic Vacuolation Dohle Bodies Navin Rods Platelet Estimate Hypogranular Platelets Clumped Platelets Giant Platelets Platelet Satelliting RBC Morphology Polychromasia Hypochromasia Poikilocytosis Basophilic Stippling Anisocytosis Microcytosis Macrocytosis Spherocytes Pappenheimer Bodies Sickle Cells Target Cells Tear Drop Cells Ovalocytes Stomatocytes [place] Bodies Echinocytes 1+ Acanthocytes (Spur) Rouleaux RBC Agglutinates Schistocytes RBC Morph Comment Sezary Cell PT 11.9 INR 1.1 APTT 21.3 PTT Ratio 0.8 Sodium 139 Potassium 3.4 L Chloride 106 Carbon Dioxide 27 Anion Gap 6.0 BUN 18 Creatinine 1.02 Est Cr Clr Drug Dosing 36.2 Est GFR ( Amer) 59.3 Est GFR (Non-Af Amer) 51.2 BUN/Creatinine Ratio 17.7 Glucose 144 H Calcium 9.0 Total Bilirubin 0.5 AST 15 ALT 19 Alkaline Phosphatase 68 Troponin I < 0.015 Total Protein 6.7 Albumin 3.5 Globulin 3.2 Albumin/Globulin Ratio 1.1 POC Stool Occult Blood (Negative) COVID-19 Eval Order SARS-CoV-2, RNA, NAAT (NEGATIVE) Blood Type Antibody Screen 03/27/20 Range/Units Unknown WBC RBC Hgb Hct MCV MCH MCHC RDW Std Deviation RDW Coeff of Marielos Plt Count MPV Immature Gran % (Auto) Neut % (Auto) Lymph % (Auto) [place] % (Auto) Eos % (Auto) Baso % (Auto) Neut # (Auto) Lymph # (Auto) [place] # (Auto) Eos # (Auto) Baso # (Auto) Immature Gran # (Auto) Absolute Nucleated RBC Nucleated RBC % (auto) Neutrophils % (Manual) Band Neutrophils % Lymphocytes % (Manual) Prolymphocyte % Reactive Lymphs % (Man) Monocytes % (Manual) Eosinophils % (Manual) Basophils % (Manual) Metamyelocytes % (Man) Myelocytes % (Man) Promyelocytes % (Man) Blast Cells % (Manual) Plasma Cell % (Manual) Other Cells % Nucleated RBC % Neutrophils # (Manual) Band Neutrophils # Total Absolute Neuts Lymphocytes # (Manual) Prolymphocyte # Reactive Lymphs # Total Abs Lymphocytes Monocytes # (Manual) Eosinophils # (Manual) Basophils # (Manual) Metamyelocytes # (Man) Myelocytes # (Manual) Promyelocytes # (Man) Blast Cells # (Man) Plasma Cell # (Manual) Other Cells # Nucleated RBCs # (Man) Hypersegmented Neuts Hyposegmented Neuts Hypogranular Neuts Large Granular Lymphs # Lrg Granular Lymphs Hairy Cells Smudge Cells Toxic Granulation Toxic Vacuolation Dohle Bodies Navin Rods Platelet Estimate Hypogranular Platelets Clumped Platelets Giant Platelets Platelet Satelliting RBC Morphology Polychromasia Hypochromasia Poikilocytosis Basophilic Stippling Anisocytosis Microcytosis Macrocytosis Spherocytes Pappenheimer Bodies Sickle Cells Target Cells Tear Drop Cells Ovalocytes Stomatocytes [place] Bodies Echinocytes Acanthocytes (Spur) Rouleaux RBC Agglutinates Schistocytes RBC Morph Comment Sezary Cell PT INR APTT PTT Ratio Sodium Potassium Chloride Carbon Dioxide Anion Gap BUN Creatinine Est Cr Clr Drug Dosing Est GFR ( Amer) Est GFR (Non-Af Amer) BUN/Creatinine Ratio Glucose Calcium Total Bilirubin AST ALT Alkaline Phosphatase Troponin I Total Protein Albumin Globulin Albumin/Globulin Ratio POC Stool Occult Blood Positive A (Negative) COVID-19 Eval Order SARS-CoV-2, RNA, NAAT (NEGATIVE) Blood Type Antibody Screen Administered Medications Discontinued Medications Sodium Chloride (Nss) 500 mls @ 999 mls/hr IV .Q31M GIANCARLO Stop: 03/27/20 16:00 Last Infusion: 03/27/20 15:58 Dose: 0 mls/hr Documented by: [id number] Admin: 03/27/20 15:27 Dose: 999 mls/hr Documented by: [id number] Ioversol (Ioversol 100ml) 93 ml IV ONCE ONE Stop: 03/27/20 17:23 Last Admin: 03/27/20 17:22 Dose: 93 ml Documented by: [id number] Discharge Plan Visit Data Chief Complaint: Rectal Bleed Stated Complaint: AB PAIN, RECTAL BLEEDING, ANXIETY ED Provider: Renny Magallanes Discharge Problem: Acute GI bleeding, COVID-19, Acute hypokalemia Forms Stand Alone Forms: [facility] [employer]! Prescriptions Prescriptions: No Action lisinopril-hydrochlorothiazide 10-12.5 mg tablet 1 tab PO QAM Qty: 90 RF: 3 metoprolol succinate 25 mg tablet extended release 24 hr 25 mg PO DAILY Qty: 90 RF: 3 benzonatate [Tessalon Perles] 100 mg capsule 100 mg PO BID PRN (Reason: Cough) Qty: 180 RF: 0 montelukast [Singulair] 5 mg tablet,chewable 5 mg PO DAILY Qty: 90 RF: 3 simvastatin 10 mg tablet 10 mg PO QPM Qty: 90 RF: 3 trazodone 100 mg tablet 100 mg PO HS RF: 0 rivastigmine tartrate 1.5 mg capsule 1.5 mg PO BID Qty: 60 RF: 2 clonazepam 0.5 mg tablet 0.5 mg PO DAILY Qty: 1 RF: 0 venlafaxine [Effexor XR] 150 mg capsule,extended release 24hr 150 mg PO QAM RF: 0 cholecalciferol (vitamin D3) 400 unit tablet 400 unit PO QAM RF: 0 cyanocobalamin (vitamin B-12) 500 mcg tablet 500 mcg PO QAM RF: 0 buspirone 7.5 mg tablet 7.5 mg PO BID RF: 0 Systane Balance 0.6 % drops 1 drp OPHTHALMIC (EYE) Q6H PRN (Reason: Dry Eye(S)) RF: 0 triamcinolone acetonide 0.1 % cream 1 applic TOPICAL BID PRN (Reason: Rash) RF: 0 magnesium hydroxide [Milk of Magnesia] 400 mg/5 mL suspension 5 ml PO DAILY PRN (Reason: Stomach Upset) RF: 0
[2020-03-27 16:40] LABS: Hematocrit (blood only) 41.2 % (37-47); Hemoglobin 14.3 g/dL (12.0-16.0); Mean Corpuscular Hemoglobin 31.2 pg (25-34); Mean Corpuscular Hgb Conc 34.7 g/dL (32-36); Mean Corpuscular Volume 89.8 fL (80-100); Mean Platelet Volume 10.8 fL (7.4-10.4); Platelet Count 210 K/uL (130-400); RDW Coefficient of Variation 12.8 % (11.5-14.5); RDW Standard Deviation 41.8 fL (36.4-46.3); Red Blood Count 4.59 M/uL (4.2-5.4); White Blood Count 15.69 K/uL (4.8-10.8)
[2020-03-27 16:52] LABS: INR 1.1 (0.9-1.1); Partial Thromboplastin Ratio 0.8; Partial Thromboplastin Time 21.3 Seconds (21.0-31.0); Prothrombin Time 11.9 Seconds (9.0-12.0)
[2020-03-27 16:56] LABS: Basophils # (auto) 0.01 K/uL (0-0.2); Basophils % (auto) 0.1 %; Echinocytes 1+; Eosinophils # (auto) 0.01 K/uL (0-0.5); Eosinophils % (auto) 0.1 %; Immature Granulocytes # (auto) 0.06 K/uL (0.00-0.02); Immature Granulocytes % (auto) 0.4 %; Lymphocytes # (auto) 0.74 K/uL (1.2-3.4); Lymphocytes % (auto) 4.7 %; Monocytes # (auto) 0.93 K/uL (0.11-0.59); Monocytes % (auto) 5.9 %; Neutrophils # (auto) 13.94 K/uL (1.4-6.5); Neutrophils % (auto) 88.8 %
[2020-03-27 17:05] LABS: Alanine Aminotransferase 19 U/L (12-78); Albumin Level 3.5 gm/dl (3.4-5.0); Aspartate Aminotransferase 15 U/L (15-37); BUN Creatinine Ratio 17.7 (10-20); Blood Urea Nitrogen 18 mg/dl (7-18); Carbon Dioxide 27 mmol/L (21-32); Chloride 106 mmol/L (98-107); Creatinine Clr Calc Pharmacy 36.2 ml/min; Est GFR (African American) 59.3; Est GFR (Non-African American) 51.2; Glucose 144 mg/dl (70-99); Potassium 3.4 mmol/L (3.5-5.1); Sodium 139 mmol/L (136-145)
[2020-03-27 17:10] LABS: Albumin Globulin Ratio 1.1 (0.9-2); Alkaline Phosphatase 68 U/L (45-117); Bilirubin,Total 0.5 mg/dl (0.2-1); Globulin 3.2 gm/dl (2.5-4.0); Total Protein 6.7 gm/dl (6.4-8.2); Troponin I < 0.015 ng/ml (0-0.045)
[2020-03-27] MEDS ORDERED: IOVERSOL 100ml IV ONE (17:22)
--- NOTE | 2020-03-27 17:56 | CT Scan Report ---
ABDOMEN AND PELVIS CT WITH IV CONTRAST CT DOSE: 323.65 mGycm HISTORY: Generalized abdominal pain. TECHNIQUE: Multiaxial CT images of the abdomen and pelvis were performed following the use of intrave nous contrast. A dose lowering technique was utilized adhering to the principles of ALARA. COMPARISON STUDY: Abdomen and pelvis CT 07/12/2015. FINDINGS: There is a punctate calcific granuloma within the left lower lobe. There are few small chanell t peripheral groundglass densities within the right middle and lower lobes. This could represent a mi ld viral pneumonia. Mild respiratory motion artifact. No pneumoperitoneum. No pneumatosis. No suspici ous lytic or blastic osseous lesions. There is a 3 cm duodenal diverticulum. Calcified granuloma seen within the liver and spleen. Focal fat seen within segment IVb of the liver. The pancreas, residual gland, kidneys are unremarkable. No hydronephrosis. There is a 1 cm indeterminate left adrenal gland nodule. This remains unchanged. The main portal vein is patent. Moderate calcified plaque within the normal caliber abdominal aorta. The bladder, uterus, bilateral adnexa are within normal limits. There is trace pelvic free fluid. Colonic diverticulosis. No evidence for acute diverticulitis. Questionab le thickening of the sigmoid colon is likely due to muscular hypertrophy. No definite bowel wall thic kening or obstruction. Normal appendix. IMPRESSION: 1. No definite bowel wall thickening or obstruction. 2. Normal appendix. 3. Colonic diverticulosis. No evidence for acute diverticulitis. 4. Small peripheral groundglass densities within the right middle lobe and lower lobe. This could rep resent a mild viral pneumonia. 5. Trace pelvic free fluid. ACT 112: Negative or not required by law. Electronically signed by: Yash Sal M.D. 03/27/2020 5:54 PM
--- NOTE | 2020-03-27 18:00 | XRay Report ---
XR chest 1V portable HISTORY: Shortness of breath. covid + COMPARISON: Chest 11/06/2019. FINDINGS: No pneumothorax. No pleural effusions. The heart is normal in size. There is mild diffuse i nterstitial thickening. This is likely chronic. Calcified granuloma within the right upper lobe. The faint groundglass densities in the right lung base are better appreciated on the same day abdomen and pelvis CT. IMPRESSION: A faint groundglass densities within the right lung base are better appreciated on the same day abdom en and pelvis CT. This favors a viral pneumonia. ACT 112: Negative or not required by law. Electronically signed by: Yash Sal M.D. 03/27/2020 5:59 PM
--- NOTE | 2020-03-27 19:02 | History & Physical Report ---
Date of Service March 27, 2020 Assessment & Plan (1) Acute GI bleeding: In setting of diarrhea suspect from COVID-19 pneumonia. Hgb currently WNL - will trend overnight to assess stability. No external hemorrhoids. Most likely diverticular bleed. Given bright red blood will hold of pantopra zole. Given COVID-19 diagnosis will defer GI consult since would not be a candidate for colonoscopy currently (unknown last colonoscopy if ever). (2) Neutrophilia: No infective source found other than COVID-19 which does not typically raise neutrophils. If further loose stool or fever will get stool and blood cultures. UA pending but no symptoms of UTI. Monitor with CBC in AM. (3) COVID-19: No hypoxia. No need for treatment at this stage. Only symptom of this appears to be diarrhea as above. (4) Dementia: Orientated to year and self but not place. Risk of delirium - will need to reorientate frequently. Continue rivastigmine 1.5mg BID (5) Anxiety disorder: Continue BuSpar, venlafaxine, trazodone (6) Hypertension: Continue lisinopril/HCTZ and metoprolol. (7) DVT prophylaxis: No SCDs due to dementia/anxiety/falls risk and dubious benefit. No chemical prophylaxis due to lower GI bleed. History of Present Illness Chief Complaint: Bright red blood in stool Primary Care Provider: Nando Horton, 84-year-old female who presents to the ER with rectal bleeding. She reports having a large bowel movement of bright red blood this morning causing her much concern and she felt like she was going to . Reportedly had another episode in the ER. No chest pain, lightheadedness, shortness of breath. Hgb at baseline. She denies any history of colonoscopy but cannot be sure about this. She reports being in her normal state of health yesterday. No nausea, vomiting, prior GI bleeds, NSAID use, melena. In the ER CT A/P and CXR picked up concerning findings for viral pneumonia. Subsequent SARS-COV-2 PCR positive with leukopenia on CBC diff. No hypoxia. She was referred to medicine for GI bleed and COVID-19. Allergies Allergy/AdvReac Type Severity Reaction Status Date / Time Penicillins Allergy Intermediate HIVES Verified 03/11/20 13:06 Sulfa (Sulfonamide Allergy Intermediate Hives Verified 03/11/20 13:06 Antibiotics) adhesive Allergy Mild redness Verified 03/11/20 13:06 aspirin Allergy Unknown Unknown Verified 03/11/20 13:06 atorvastatin Allergy Unknown unknown Verified 03/11/20 13:06 Cipro Allergy Unknown ? Unverified 06/22/15 15:06 ciprofloxacin Allergy Unknown Unknown Verified 03/11/20 13:06 clindamycin Allergy Unknown Unknown Verified 03/11/20 13:06 erythromycin base Allergy Unknown Unknown Verified 03/11/20 13:06 escitalopram Allergy Unknown Unknown Verified 03/11/20 13:06 etodolac Allergy Unknown Unknown Verified 03/11/20 13:06 meloxicam Allergy Unknown unknown Verified 03/11/20 13:06 metronidazole Allergy Unknown Unknown Verified 03/11/20 13:06 naloxone [From Talwin NX] Allergy Unknown Unknown Verified 03/11/20 13:06 omeprazole Allergy Unknown Unknown Verified 03/11/20 13:06 pentazocine Allergy Unknown Unknown Verified 03/11/20 13:06 polyethylene glycol 400 Allergy Unknown Unknown Verified 03/11/20 13:06 [From Systane (propylene glycol)] propylene glycol Allergy Unknown Unknown Verified 03/11/20 13:06 [From Systane (propylene glycol)] pseudoephedrine Allergy Unknown Unknown Verified 03/11/20 13:06 temazepam Allergy Unknown Unknown Verified 03/11/20 13:06 tramadol Allergy Unknown Unknown Verified 03/11/20 13:06 fluvoxamine AdvReac Mild GI SYMPTOMS Verified 03/11/20 13:06 gabapentin AdvReac Mild gi symptoms Verified 03/11/20 13:06 hydralazine AdvReac Mild gi symptoms Verified 03/11/20 13:06 meclizine AdvReac Mild nausea/ Verified 03/11/20 13:06 vomiting prednisone AdvReac Mild thrush Verified 03/11/20 13:06 promethazine AdvReac Mild gi symptoms Verified 03/11/20 13:06 quetiapine AdvReac Mild gi symptoms Verified 03/11/20 13:06 risperidone AdvReac Mild GI SYMPTOMS Verified 03/11/20 13:06 Home Medications Medication Instructions Recorded Confirmed Type buspirone 7.5 mg tablet 7.5 mg PO BID 11/07/18 03/27/20 History cholecalciferol (vitamin D3) 10 400 unit PO QAM 11/07/18 03/27/20 History mcg (400 unit) tablet cyanocobalamin (vitamin B-12) 500 500 mcg PO QAM 11/07/18 03/27/20 History mcg tablet propylene glycol 0.6 % eye drops 1 drp OPHTHALMIC (EYE) Q6H PRN 11/07/18 03/27/20 History trazodone 100 mg tablet 100 mg PO HS tab 11/07/18 03/27/20 History venlafaxine 150 mg 150 mg PO QAM 11/07/18 03/27/20 History capsule,extended release 24 hr lisinopril 10 1 tab PO QAM #90 tab 06/12/19 03/27/20 Rx mg-hydrochlorothiazide 12.5 mg tablet magnesium hydroxide [Milk of 5 ml PO DAILY PRN 11/06/19 03/27/20 History Magnesia] triamcinolone acetonide 1 applic TOPICAL BID PRN 11/06/19 03/27/20 History metoprolol succinate 25 mg 25 mg PO DAILY #90 tab 12/11/19 03/27/20 Rx tablet,extended release 24 hr clonazepam 0.5 mg tablet 0.5 mg PO DAILY #1 tab 12/25/19 03/27/20 Rx rivastigmine tartrate 1.5 mg 1.5 mg PO BID #60 cap 02/29/20 03/27/20 Rx capsule benzonatate 100 mg capsule 100 mg PO BID PRN #180 cap 03/04/20 03/27/20 Rx montelukast 5 mg chewable tablet 5 mg PO DAILY #90 tab 03/04/20 03/27/20 Rx simvastatin 10 mg tablet 10 mg PO QPM #90 tab 03/04/20 03/27/20 Rx Past Med/Surg History Medical History Allergic rhinitis due to dust Anxiety disorder Asthma inhaler prn Atypical chest pain Breast mass Cerebral atherosclerosis following with Dr. Rodríguez Confusion Constipation Dysphagia Prior evaluation Fibromyalgia Gastroesophageal reflux disease Glaucoma Head pain following with Dr. Rodríguez History of Holter monitoring wore recently 08/2019, no result yet, d/t pain in chest/breast area Hyperlipidemia Hypertension Insomnia Meningioma (~2014) Mild cognitive impairment Nontoxic multinodular goiter Osteoarthritis of left knee Osteopenia Poor historian Rectal bleeding ? reason for colonoscopy?? Skin lesion of back 4mm flesh colored mole, center of back. SNHL (sensorineural hearing loss) Surgical History History of cataract surgery unsure which eye History of colonoscopy History of tooth extraction partial upper/lower denture Family History Brother Acute myocardial infarction Stroke syndrome Family history of diabetes mellitus Sister Family history of diabetes mellitus Unknown Ovarian cancer Heart disease Hypertension Mother Ovarian cancer Brother Family history of diabetes mellitus Sister Family history of diabetes mellitus Other No family history of adverse response to anesthesia Social History Smoking Status: Never smoker Age Started Using Tobacco: 21; Age Quit Using Tobacco: 22; packs per day: 0.5; Years Smoked: 1; Cigarettes Per Day: 4; Smoking End Date: 1959; Second Hand Exposure: Yes ( smoked a pipe); Hx Alcohol Use: No Hx Substance Use: No Preferred Language: Yakut Communication Ability: Effective Visual Impairment: Diminished Hearing Ability: Normal Hand Straightener Required: No Beliefs That Will Affect Care: None marital status: / Current Living Situation: Alone current occupational status: retired Other Information That Helps Us Care for You: No Feels Safe at Home: Yes Safety Concerns: Feels Safe At This Time Childhood Exposure to Second-Hand Smoke: No caffeine: No Dental Care, Regularly: Yes Physical Activity Frequency: Does not Exercise Seatbelt Use: always Sunscreen Use: No Assistive Devices: None Review of Systems Review of Systems: All systems reviewed & are unremarkable except as noted in HPI & below Respiratory: no cough, no change in sputum, no dyspnea, no dyspnea on exertion and no wheezing Physical Exam Constitutional: well developed; + not well nourished and no acute distress Eyes: PERRL, conjunctivae normal, anicteric sclerae ENMT: Ears: no external ear abnormality Nose: no external nose abnormality Mouth: + dry oral mucous membranes Neck: trachea midline, no thyromegaly Respiratory: normal respiratory effort, lungs clear to auscultation Cardiovascular: RRR, no murmur, no edema Gastrointestinal (Abdomen): Inspection/Auscultation: abdomen normal to inspection and + hyperactive bowel sounds; abdomen not distended Percussion/Palpation: abdomen soft; abdomen nontender, no guarding and abdomen not rigid Musculoskeletal: no cyanosis or clubbing, extremities motor strength 5/5 Skin: no rashes, warm and dry Psychiatric: Orientation: alert, oriented to person and oriented to time; + not oriented to place Eye Contact: + fair eye contact Affect: + anxious affect Mood: + anxious mood Hallucinations: no auditory hallucinations and no visual hallucinations Cognition: remote memory grossly intact; + recent memory not intact and + attention not intact Genitourinary: no CVA tenderness Results & Data Results & Data ([facility]) Vital Signs (Past 12 Hours) Vital Signs Temp Pulse Resp BP Pulse Ox 03/27/20 18:00 78 19 157/84 H 96 03/27/20 17:30 78 23 157/73 H 96 03/27/20 17:01 71 22 96 03/27/20 17:00 69 23 151/76 H 96 03/27/20 16:31 73 23 98 03/27/20 16:30 72 24 152/68 H 97 03/27/20 16:13 77 20 98 03/27/20 16:12 73 22 167/80 H 97 03/27/20 15:22 99 03/27/20 15:04 36.8 C 70 20 155/73 H 98 Diagnostic Findings XR chest 1V portable IMPRESSION: A faint groundglass densities within the right lung base are better appreciated on the same day abdomen and pelvis CT. This favors a viral pneumonia. ABDOMEN AND PELVIS CT WITH IV CONTRAST IMPRESSION: 1. No definite bowel wall thickening or obstruction. 2. Normal appendix. 3. Colonic diverticulosis. No evidence for acute diverticulitis. 4. Small peripheral groundglass densities within the right middle lobe and lower lobe. This could represent a mild viral pneumonia. 5. Trace pelvic free fluid. Medications Administered ER Medications given: NSS 500 ml bolus ECG Indication: abdominal pain Rate (beats per minute): 68 Rhythm: normal sinus Findings: no acute ischemic change Comparison ECG Date: from (November 06, 2019) Change: no significant change Code Status & VTE Plan Code Status DNR/DNI as discussed with the patient - consistent with prior wishes in EHR VTE Prophylaxis Plan VTE Prophylaxis will be ordered: No Reason for no VTE drug order: Contraindicated Reason for no VTE mechanical prophylaxis: Treatment not indicated PG Care Time/CCT Total # of Minutes Spent Total Time Spent with Patient: Total time spent is greater than 50% in coordination of care (as documented) at patient's floor/unit and/or counseling patient: Coding Level of Care Code 51096 OBS Care - Level 3 Diagnoses Acute GI bleeding K92.2 Neutrophilia D72.9 COVID-19 U07.1 Dementia F03.90 Anxiety disorder F41.9 Hypertension I10 Hypertension type: unspecified DVT prophylaxis Z29.9 (1) Hypertension Hypertension type: unspecified Qualified Code(s): I10 - Essential (primary) hypertension
[2020-03-27] MEDS ORDERED: ACETAMINOPHEN 325 MG TAB PO PRN (20:43)
[2020-03-27] MEDS ORDERED: ARTIFICIAL TEARS OP PRN (21:06)
[2020-03-27] MEDS: RIVASTIGMINE TARTRATE 1.5 MG CAP PO SCH (21:45)
[2020-03-27] MEDS: busPIRone 7.5 MG TAB PO SCH (21:45)
[2020-03-27] MEDS: traZODone HCL 100 MG TAB PO SCH (21:45)
[2020-03-27] MEDS: SIMVASTATIN 10 MG TAB PO SCH (21:46)
[2020-03-27 22:21] LABS: Hematocrit (blood only) 40.9 % (37-47); Hemoglobin 13.9 g/dL (12.0-16.0)
--- NOTE | 2020-03-28 06:04 | Electrocardiogram Report ---
Test Reason : Blood Pressure : / mmHG Vent. Rate : 068 BPM Atrial Rate : 068 BPM P-R Int : 114 ms QRS Dur : 082 ms QT Int : 420 ms P-R-T Axes : 034 052 061 degrees QTc Int : 446 ms Poor data quality, interpretation may be adversely affected Normal sinus rhythm Normal ECG When compared with ECG of 06-NOV-2019 17:29, No significant change was found Confirmed by Clement Harris ([id number]) on 03/28/2020 6:03:27 AM Referred By: Confirmed By:Clement Harris
[2020-03-28 08:20] LABS: Appearance Urine Clear (Clear); Bacteria Urine Automated Negative (Negative); Bilirubin Urine Negative (Negative); Blood Urine Trace (Negative); Color Urine Dark Yellow; Glucose Urine UA Negative (Negative); Ketones Urine 2+ (Negative); Leukocyte Esterase Urine Negative (Negative); Nitrite Urine Negative (Negative); Protein Urine 1+ (Negative); Specific Gravity Urine > 1.045 (1.000-1.030); Urobilinogen Urine Negative (Negative)
[2020-03-28 08:22] LABS: Basophils # (auto) 0.01 K/uL (0-0.2); Basophils % (auto) 0.1 %; Eosinophils # (auto) 0.01 K/uL (0-0.5); Eosinophils % (auto) 0.1 %; Hematocrit (blood only) 42.7 % (37-47); Hemoglobin 15.1 g/dL (12.0-16.0); Immature Granulocytes # (auto) 0.05 K/uL (0.00-0.02); Immature Granulocytes % (auto) 0.3 %; Lymphocytes # (auto) 1.47 K/uL (1.2-3.4); Lymphocytes % (auto) 8.8 %; Mean Corpuscular Hemoglobin 31.5 pg (25-34); Mean Corpuscular Volume 89.1 fL (80-100); Mean Platelet Volume 11.3 fL (7.4-10.4); Monocytes # (auto) 0.95 K/uL (0.11-0.59); Monocytes % (auto) 5.7 %; Neutrophils # (auto) 14.17 K/uL (1.4-6.5); Platelet Count 243 K/uL (130-400); RDW Coefficient of Variation 12.9 % (11.5-14.5); RDW Standard Deviation 41.8 fL (36.4-46.3); Red Blood Count 4.79 M/uL (4.2-5.4); White Blood Count 16.66 K/uL (4.8-10.8)
[2020-03-28 08:24] LABS: Mean Corpuscular Hgb Conc 35.4 g/dL (32-36)
[2020-03-28 08:48] LABS: BUN Creatinine Ratio 24.6 (10-20); Calcium 9.9 mg/dl (8.5-10.1); Creatinine Clr Calc Pharmacy 43.9 ml/min; Est GFR (African American) 79.6; Est GFR (Non-African American) 68.7; Potassium 3.5 mmol/L (3.5-5.1)
[2020-03-28] MEDS: VENLAFAXINE HCL XR 150 MG CAPXR PO SCH ×2 (08:55→11:33)
[2020-03-28] MEDS: RIVASTIGMINE TARTRATE 1.5 MG CAP PO SCH ×2 (08:55→19:42)
[2020-03-28] MEDS: MONTELUKAST SOD 5 MG CHEWABLE TAB PO SCH ×2 (08:55→11:33)
[2020-03-28] MEDS: LISINOPRIL/HCTZ 10/12.5MG TAB PO SCH ×2 (08:55→11:33)
[2020-03-28] MEDS: CYANOCOBALAMIN 500 MCG TABLET (VITAMIN B-12) PO SCH ×2 (08:55→11:33)
[2020-03-28] MEDS: busPIRone 7.5 MG TAB PO SCH ×3 (08:55→19:41)
[2020-03-28] MEDS: METOPROLOL SUCC 25MG EXT REL TAB PO SCH ×2 (08:55→11:33)
[2020-03-28 09:43] LABS: Cast Urine Automated 0 /lpf (0-5); Mucus Urine Present (None Prsent)
[2020-03-28 09:44] LABS: RBC Urine Automated 0-4 /hpf (0-4)
--- NOTE | 2020-03-28 15:45 | Hospitalist Progress Note ---
Date of Service March 28, 2020 Assessment & Plan (1) Acute GI bleeding: In setting of diarrhea suspect from COVID-19 infection no further bleeding, Hb is 15 today, continue to observe overnight No external hemorrhoids. could be diverticular bleed. Given bright red blood, but no further bleeding Given COVID-19 diagnosis will defer GI consult since would not be a candidate for colonoscopy currently (unknown last colonoscopy if ever) could refer to GI as outpatient (2) Neutrophilia: No infective source found other than COVID-19 order C diff if she has another BM, this could be a cause of bloody diarrhea (3) COVID-19: No hypoxia. No need for treatment at this stage. Only symptom of this appears to be diarrhea as above. (4) Dementia: Orientated to year and self but not place. Risk of delirium - will need to reorientate frequently. Continue rivastigmine 1.5mg BID consult CM for safe discharge planning, per prior visit she lives in apartment consult PT to have her walk tomorrow (5) Anxiety disorder: Continue BuSpar, venlafaxine, trazodone (6) Hypertension: Continue lisinopril/HCTZ and metoprolol. (7) DVT prophylaxis: No SCDs due to dementia/anxiety/falls risk and dubious benefit. No chemical prophylaxis due to lower GI bleed. Admission and Anticipated Discharge Date Admission Date: March 27, 2020 Subjective patient doing well, no GI bleeding seen, Hb is 15 she is hungry, will give her a diet, got her some vanilla pudding which made her feel much better she denies dyspnea, fever/chills, cough, chest pain no abdominal pain or vomiting other labs are all stable she lives in a secure apartment, will consult case management and PT to see tomorrow Review of Systems Review of Systems: All systems reviewed & are unremarkable except as noted in Subjective Physical Exam Constitutional: WD/WN, vitals as above Neck: trachea midline, no thyromegaly Respiratory: normal respiratory effort, lungs clear to auscultation Cardiovascular: RRR, no murmur, no edema Gastrointestinal (Abdomen): normal bowel sounds, soft, nontender, no hepatosplenomegaly Musculoskeletal: no cyanosis or clubbing, extremities motor strength 5/5 Skin: no rashes, warm and dry Neurologic: patellar DTR's 2+ bilat, sensation intact and PERRL, EOMI, accommodation nl, no face palsy, no dysarthria Psychiatric: A+Ox3, euthymic affect Lymphatic: no cervical or axillary lymphadenopathy Results & Data Results & Data ([facility]) Vital Signs (Past 12 Hours) Vital Signs Temp Pulse Resp BP Pulse Ox 03/28/20 15:37 36.7 C 89 16 166/77 H 95 03/28/20 11:33 128/80 03/28/20 07:03 36.9 C 85 20 169/71 H 95 Laboratory Results Laboratory Results - last 24 hr 03/27/20 03/27/20 03/27/20 15:24 15:24 15:24 WBC Cancelled RBC Cancelled Hgb Cancelled Hct Cancelled MCV Cancelled MCH Cancelled MCHC Cancelled RDW Std Deviation Cancelled RDW Coeff of Marielos Cancelled Plt Count Cancelled MPV Cancelled Immature Gran % (Auto) Cancelled Neut % (Auto) Cancelled Lymph % (Auto) Cancelled [place] % (Auto) Cancelled Eos % (Auto) Cancelled Baso % (Auto) Cancelled Neut # (Auto) Cancelled Lymph # (Auto) Cancelled [place] # (Auto) Cancelled Eos # (Auto) Cancelled Baso # (Auto) Cancelled Immature Gran # (Auto) Cancelled Absolute Nucleated RBC Cancelled Nucleated RBC % (auto) Cancelled Neutrophils % (Manual) Cancelled Band Neutrophils % Cancelled Lymphocytes % (Manual) Cancelled Prolymphocyte % Cancelled Reactive Lymphs % (Man) Cancelled Monocytes % (Manual) Cancelled Eosinophils % (Manual) Cancelled Basophils % (Manual) Cancelled Metamyelocytes % (Man) Cancelled Myelocytes % (Man) Cancelled Promyelocytes % (Man) Cancelled Blast Cells % (Manual) Cancelled Plasma Cell % (Manual) Cancelled Other Cells % Cancelled Nucleated RBC % Cancelled Neutrophils # (Manual) Cancelled Band Neutrophils # Cancelled Total Absolute Neuts Cancelled Lymphocytes # (Manual) Cancelled Prolymphocyte # Cancelled Reactive Lymphs # Cancelled Total Abs Lymphocytes Cancelled Monocytes # (Manual) Cancelled Eosinophils # (Manual) Cancelled Basophils # (Manual) Cancelled Metamyelocytes # (Man) Cancelled Myelocytes # (Manual) Cancelled Promyelocytes # (Man) Cancelled Blast Cells # (Man) Cancelled Plasma Cell # (Manual) Cancelled Other Cells # Cancelled Nucleated RBCs # (Man) Cancelled Hypersegmented Neuts Cancelled Hyposegmented Neuts Cancelled Hypogranular Neuts Cancelled Large Granular Lymphs Cancelled # Lrg Granular Lymphs Cancelled Hairy Cells Cancelled Smudge Cells Cancelled Toxic Granulation Cancelled Toxic Vacuolation Cancelled Dohle Bodies Cancelled Navin Rods Cancelled Platelet Estimate Cancelled Hypogranular Platelets Cancelled Clumped Platelets Cancelled Giant Platelets Cancelled Platelet Satelliting Cancelled RBC Morphology Cancelled Polychromasia Cancelled Hypochromasia Cancelled Poikilocytosis Cancelled Basophilic Stippling Cancelled Anisocytosis Cancelled Microcytosis Cancelled Macrocytosis Cancelled Spherocytes Cancelled Pappenheimer Bodies Cancelled Sickle Cells Cancelled Target Cells Cancelled Tear Drop Cells Cancelled Ovalocytes Cancelled Stomatocytes Cancelled [place] Bodies Cancelled Echinocytes Cancelled Acanthocytes (Spur) Cancelled Rouleaux Cancelled RBC Agglutinates Cancelled Schistocytes Cancelled RBC Morph Comment Cancelled Sezary Cell Cancelled PT Cancelled INR Cancelled APTT Cancelled PTT Ratio Cancelled Sodium Potassium Chloride Carbon Dioxide Anion Gap BUN Creatinine Est Cr Clr Drug Dosing Est GFR ( Amer) Est GFR (Non-Af Amer) BUN/Creatinine Ratio Glucose Calcium Total Bilirubin AST ALT Alkaline Phosphatase Troponin I Total Protein Albumin Globulin Albumin/Globulin Ratio Urine Color Urine Appearance Urine pH Ur Specific [place] Urine Protein Urine Glucose (UA) Urine Ketones Urine Blood Urine Nitrite Urine Bilirubin Urine Urobilinogen Ur Leukocyte Esterase Urine WBC (Auto) Urine RBC (Auto) U Hyaline Cast (Auto) U Epithel Cells (Auto) Urine Bacteria (Auto) Urine Mucus COVID-19 Eval Order SARS-CoV-2, RNA, NAAT Blood Type B Positive Antibody Screen NEGATIVE 03/27/20 03/27/20 03/27/20 15:24 16:15 16:15 WBC RBC Hgb Hct MCV MCH MCHC RDW Std Deviation RDW Coeff of Marielos Plt Count MPV Immature Gran % (Auto) Neut % (Auto) Lymph % (Auto) [place] % (Auto) Eos % (Auto) Baso % (Auto) Neut # (Auto) Lymph # (Auto) [place] # (Auto) Eos # (Auto) Baso # (Auto) Immature Gran # (Auto) Absolute Nucleated RBC Nucleated RBC % (auto) Neutrophils % (Manual) Band Neutrophils % Lymphocytes % (Manual) Prolymphocyte % Reactive Lymphs % (Man) Monocytes % (Manual) Eosinophils % (Manual) Basophils % (Manual) Metamyelocytes % (Man) Myelocytes % (Man) Promyelocytes % (Man) Blast Cells % (Manual) Plasma Cell % (Manual) Other Cells % Nucleated RBC % Neutrophils # (Manual) Band Neutrophils # Total Absolute Neuts Lymphocytes # (Manual) Prolymphocyte # Reactive Lymphs # Total Abs Lymphocytes Monocytes # (Manual) Eosinophils # (Manual) Basophils # (Manual) Metamyelocytes # (Man) Myelocytes # (Manual) Promyelocytes # (Man) Blast Cells # (Man) Plasma Cell # (Manual) Other Cells # Nucleated RBCs # (Man) Hypersegmented Neuts Hyposegmented Neuts Hypogranular Neuts Large Granular Lymphs # Lrg Granular Lymphs Hairy Cells Smudge Cells Toxic Granulation Toxic Vacuolation Dohle Bodies Navin Rods Platelet Estimate Hypogranular Platelets Clumped Platelets Giant Platelets Platelet Satelliting RBC Morphology Polychromasia Hypochromasia Poikilocytosis Basophilic Stippling Anisocytosis Microcytosis Macrocytosis Spherocytes Pappenheimer Bodies Sickle Cells Target Cells Tear Drop Cells Ovalocytes Stomatocytes [place] Bodies Echinocytes Acanthocytes (Spur) Rouleaux RBC Agglutinates Schistocytes RBC Morph Comment Sezary Cell PT INR APTT PTT Ratio Sodium Cancelled Potassium Cancelled Chloride Cancelled Carbon Dioxide Cancelled Anion Gap Cancelled BUN Cancelled Creatinine Cancelled Est Cr Clr Drug Dosing Cancelled Est GFR ( Amer) Cancelled Est GFR (Non-Af Amer) Cancelled BUN/Creatinine Ratio Cancelled Glucose Cancelled Calcium Cancelled Total Bilirubin Cancelled AST Cancelled ALT Cancelled Alkaline Phosphatase Cancelled Troponin I Cancelled Total Protein Cancelled Albumin Cancelled Globulin Cancelled Albumin/Globulin Ratio Cancelled Urine Color Urine Appearance Urine pH Ur Specific [place] Urine Protein Urine Glucose (UA) Urine Ketones Urine Blood Urine Nitrite Urine Bilirubin Urine Urobilinogen Ur Leukocyte Esterase Urine WBC (Auto) Urine RBC (Auto) U Hyaline Cast (Auto) U Epithel Cells (Auto) Urine Bacteria (Auto) Urine Mucus COVID-19 Eval [facility] SARS-CoV-2, RNA, NAAT POSITIVE A* Blood Type Antibody Screen 03/27/20 03/27/20 03/27/20 16:19 16:19 16:19 WBC 15.69 H RBC 4.59 Hgb 14.3 Hct 41.2 MCV 89.8 MCH 31.2 MCHC 34.7 RDW Std Deviation 41.8 RDW Coeff of Marielos 12.8 Plt Count 210 MPV 10.8 H Immature Gran % (Auto) 0.4 Neut % (Auto) 88.8 Lymph % (Auto) 4.7 [place] % (Auto) 5.9 Eos % (Auto) 0.1 Baso % (Auto) 0.1 Neut # (Auto) 13.94 H Lymph # (Auto) 0.74 L [place] # (Auto) 0.93 H Eos # (Auto) 0.01 Baso # (Auto) 0.01 Immature Gran # (Auto) 0.06 H Absolute Nucleated RBC Nucleated RBC % (auto) Neutrophils % (Manual) Band Neutrophils % Lymphocytes % (Manual) Prolymphocyte % Reactive Lymphs % (Man) Monocytes % (Manual) Eosinophils % (Manual) Basophils % (Manual) Metamyelocytes % (Man) Myelocytes % (Man) Promyelocytes % (Man) Blast Cells % (Manual) Plasma Cell % (Manual) Other Cells % Nucleated RBC % Neutrophils # (Manual) Band Neutrophils # Total Absolute Neuts Lymphocytes # (Manual) Prolymphocyte # Reactive Lymphs # Total Abs Lymphocytes Monocytes # (Manual) Eosinophils # (Manual) Basophils # (Manual) Metamyelocytes # (Man) Myelocytes # (Manual) Promyelocytes # (Man) Blast Cells # (Man) Plasma Cell # (Manual) Other Cells # Nucleated RBCs # (Man) Hypersegmented Neuts Hyposegmented Neuts Hypogranular Neuts Large Granular Lymphs # Lrg Granular Lymphs Hairy Cells Smudge Cells Toxic Granulation Toxic Vacuolation Dohle Bodies Navin Rods Platelet Estimate Hypogranular Platelets Clumped Platelets Giant Platelets Platelet Satelliting RBC Morphology Polychromasia Hypochromasia Poikilocytosis Basophilic Stippling Anisocytosis Microcytosis Macrocytosis Spherocytes Pappenheimer Bodies Sickle Cells Target Cells Tear Drop Cells Ovalocytes Stomatocytes [place] Bodies Echinocytes 1+ Acanthocytes (Spur) Rouleaux RBC Agglutinates Schistocytes RBC Morph Comment Sezary Cell PT 11.9 INR 1.1 APTT 21.3 PTT Ratio 0.8 Sodium 139 Potassium 3.4 L Chloride 106 Carbon Dioxide 27 Anion Gap 6.0 BUN 18 Creatinine 1.02 Est Cr Clr Drug Dosing 36.2 Est GFR ( Amer) 59.3 Est GFR (Non-Af Amer) 51.2 BUN/Creatinine Ratio 17.7 Glucose 144 H Calcium 9.0 Total Bilirubin 0.5 AST 15 ALT 19 Alkaline Phosphatase 68 Troponin I < 0.015 Total Protein 6.7 Albumin 3.5 Globulin 3.2 Albumin/Globulin Ratio 1.1 Urine Color Urine Appearance Urine pH Ur Specific [place] Urine Protein Urine Glucose (UA) Urine Ketones Urine Blood Urine Nitrite Urine Bilirubin Urine Urobilinogen Ur Leukocyte Esterase Urine WBC (Auto) Urine RBC (Auto) U Hyaline Cast (Auto) U Epithel Cells (Auto) Urine Bacteria (Auto) Urine Mucus COVID-19 Eval Order SARS-CoV-2, RNA, NAAT Blood Type Antibody Screen 03/27/20 03/28/20 03/28/20 21:52 08:00 08:00 WBC 16.66 H RBC 4.79 Hgb 13.9 15.1 Hct 40.9 42.7 MCV 89.1 MCH 31.5 MCHC 35.4 RDW Std Deviation 41.8 RDW Coeff of Marielos 12.9 Plt Count 243 MPV 11.3 H Immature Gran % (Auto) 0.3 Neut % (Auto) 85.0 Lymph % (Auto) 8.8 [place] % (Auto) 5.7 Eos % (Auto) 0.1 Baso % (Auto) 0.1 Neut # (Auto) 14.17 H Lymph # (Auto) 1.47 [place] # (Auto) 0.95 H Eos # (Auto) 0.01 Baso # (Auto) 0.01 Immature Gran # (Auto) 0.05 H Absolute Nucleated RBC Nucleated RBC % (auto) Neutrophils % (Manual) Band Neutrophils % Lymphocytes % (Manual) Prolymphocyte % Reactive Lymphs % (Man) Monocytes % (Manual) Eosinophils % (Manual) Basophils % (Manual) Metamyelocytes % (Man) Myelocytes % (Man) Promyelocytes % (Man) Blast Cells % (Manual) Plasma Cell % (Manual) Other Cells % Nucleated RBC % Neutrophils # (Manual) Band Neutrophils # Total Absolute Neuts Lymphocytes # (Manual) Prolymphocyte # Reactive Lymphs # Total Abs Lymphocytes Monocytes # (Manual) Eosinophils # (Manual) Basophils # (Manual) Metamyelocytes # (Man) Myelocytes # (Manual) Promyelocytes # (Man) Blast Cells # (Man) Plasma Cell # (Manual) Other Cells # Nucleated RBCs # (Man) Hypersegmented Neuts Hyposegmented Neuts Hypogranular Neuts Large Granular Lymphs # Lrg Granular Lymphs Hairy Cells Smudge Cells Toxic Granulation Toxic Vacuolation Dohle Bodies Navin Rods Platelet Estimate Hypogranular Platelets Clumped Platelets Giant Platelets Platelet Satelliting RBC Morphology Polychromasia Hypochromasia Poikilocytosis Basophilic Stippling Anisocytosis Microcytosis Macrocytosis Spherocytes Pappenheimer Bodies Sickle Cells Target Cells Tear Drop Cells Ovalocytes Stomatocytes [place] Bodies Echinocytes Acanthocytes (Spur) Rouleaux RBC Agglutinates Schistocytes RBC Morph Comment Sezary Cell PT INR APTT PTT Ratio Sodium 137 Potassium 3.5 Chloride 102 Carbon Dioxide 30 Anion Gap 5.0 BUN 20 H Creatinine 0.80 Est Cr Clr Drug Dosing 43.9 Est GFR ( Amer) 79.6 Est GFR (Non-Af Amer) 68.7 BUN/Creatinine Ratio 24.6 H Glucose 138 H Calcium 9.9 Total Bilirubin AST ALT Alkaline Phosphatase Troponin I Total Protein Albumin Globulin Albumin/Globulin Ratio Urine Color Urine Appearance Urine pH Ur Specific [place] Urine Protein Urine Glucose (UA) Urine Ketones Urine Blood Urine Nitrite Urine Bilirubin Urine Urobilinogen Ur Leukocyte Esterase Urine WBC (Auto) Urine RBC (Auto) U Hyaline Cast (Auto) U Epithel Cells (Auto) Urine Bacteria (Auto) Urine Mucus COVID-19 Eval Order SARS-CoV-2, RNA, NAAT Blood Type Antibody Screen 03/28/20 08:00 WBC RBC Hgb Hct MCV MCH MCHC RDW Std Deviation RDW Coeff of Marielos Plt Count MPV Immature Gran % (Auto) Neut % (Auto) Lymph % (Auto) [place] % (Auto) Eos % (Auto) Baso % (Auto) Neut # (Auto) Lymph # (Auto) [place] # (Auto) Eos # (Auto) Baso # (Auto) Immature Gran # (Auto) Absolute Nucleated RBC Nucleated RBC % (auto) Neutrophils % (Manual) Band Neutrophils % Lymphocytes % (Manual) Prolymphocyte % Reactive Lymphs % (Man) Monocytes % (Manual) Eosinophils % (Manual) Basophils % (Manual) Metamyelocytes % (Man) Myelocytes % (Man) Promyelocytes % (Man) Blast Cells % (Manual) Plasma Cell % (Manual) Other Cells % Nucleated RBC % Neutrophils # (Manual) Band Neutrophils # Total Absolute Neuts Lymphocytes # (Manual) Prolymphocyte # Reactive Lymphs # Total Abs Lymphocytes Monocytes # (Manual) Eosinophils # (Manual) Basophils # (Manual) Metamyelocytes # (Man) Myelocytes # (Manual) Promyelocytes # (Man) Blast Cells # (Man) Plasma Cell # (Manual) Other Cells # Nucleated RBCs # (Man) Hypersegmented Neuts Hyposegmented Neuts Hypogranular Neuts Large Granular Lymphs # Lrg Granular Lymphs Hairy Cells Smudge Cells Toxic Granulation Toxic Vacuolation Dohle Bodies Navin Rods Platelet Estimate Hypogranular Platelets Clumped Platelets Giant Platelets Platelet Satelliting RBC Morphology Polychromasia Hypochromasia Poikilocytosis Basophilic Stippling Anisocytosis Microcytosis Macrocytosis Spherocytes Pappenheimer Bodies Sickle Cells Target Cells Tear Drop Cells Ovalocytes Stomatocytes [place] Bodies Echinocytes Acanthocytes (Spur) Rouleaux RBC Agglutinates Schistocytes RBC Morph Comment Sezary Cell PT INR APTT PTT Ratio Sodium Potassium Chloride Carbon Dioxide Anion Gap BUN Creatinine Est Cr Clr Drug Dosing Est GFR ( Amer) Est GFR (Non-Af Amer) BUN/Creatinine Ratio Glucose Calcium Total Bilirubin AST ALT Alkaline Phosphatase Troponin I Total Protein Albumin Globulin Albumin/Globulin Ratio Urine Color Dark Yellow Urine Appearance Clear Urine pH 6.0 Ur Specific [place] > 1.045 H Urine Protein 1+ H Urine Glucose (UA) Negative Urine Ketones 2+ H Urine Blood Trace H Urine Nitrite Negative Urine Bilirubin Negative Urine Urobilinogen Negative Ur Leukocyte Esterase Negative Urine WBC (Auto) 1-5 Urine RBC (Auto) 0-4 U Hyaline Cast (Auto) 0 U Epithel Cells (Auto) 10-20 H Urine Bacteria (Auto) Negative Urine Mucus Present A COVID-19 Eval Order SARS-CoV-2, RNA, NAAT Blood Type Antibody Screen Medications Administered Current Inpatient Medications Acetaminophen (Acetaminophen 325 Mg Tab) 650 mg PO Q4H PRN PRN Reason: pain/fever Stop: 04/26/20 20:42 Artificial Tears (Artificial Tears) 1 drops OP Q6H PRN PRN Reason: Dry Eye(S) Stop: 04/26/20 21:05 Buspirone HCl (Buspirone 7.5 Mg Tab) 7.5 mg PO BID [facility] Stop: 04/26/20 20:59 Last Admin: 03/28/20 11:33 Dose: Not Given Documented by: Cyanocobalamin (Cyanocobalamin 500 Mcg Tablet (Vitamin B-12)) 500 mcg PO QAM [facility] Stop: 04/27/20 08:59 Last Admin: 03/28/20 11:33 Dose: Not Given Documented by: Lisinopril/HCTZ (Lisinopril/Hctz 10/12.5mg Tab) 1 tab PO QAM [facility] Stop: 04/27/20 08:59 Last Admin: 03/28/20 11:33 Dose: Not Given Documented by: Metoprolol Succinate (Metoprolol Succ 25mg Ext Rel Tab) 25 mg PO DAILY [facility] Stop: 04/27/20 08:59 Last Admin: 03/28/20 11:33 Dose: Not Given Documented by: Montelukast Sodium (Montelukast Sod 5 Mg Chewable Tab) 5 mg PO DAILY [facility] Stop: 04/27/20 08:59 Last Admin: 03/28/20 11:33 Dose: Not Given Documented by: Rivastigmine Tartrate (Rivastigmine Tartrate 1.5 Mg Cap) 1.5 mg PO BID [facility] Stop: 04/26/20 20:59 Last Admin: 03/28/20 08:55 Dose: 1.5 mg Documented by: Simvastatin (Simvastatin 10 Mg Tab) 10 mg PO QPM [facility] Stop: 04/26/20 20:59 Last Admin: 03/27/20 21:46 Dose: 10 mg Documented by: Trazodone HCl (Trazodone Hcl 100 Mg Tab) 100 mg PO HS [facility] Stop: 04/26/20 20:59 Last Admin: 03/27/20 21:45 Dose: 100 mg Documented by: Venlafaxine HCl (Venlafaxine Hcl Xr 150 Mg Capxr) 150 mg PO QAM [facility] Stop: 04/27/20 08:59 Last Admin: 03/28/20 11:33 Dose: Not Given Documented by: PG Care Time/CCT Total # of Minutes Spent Total Time Spent with Patient: Total time spent is greater than 50% in coordination of care (as documented) at patient's floor/unit and/or counseling patient: Coding Level of Care Code 87119 Subseq Hosp Care Lvl 2 Diagnoses Acute GI bleeding K92.2 Neutrophilia D72.9 COVID-19 U07.1 Dementia F03.90 Anxiety disorder F41.9 Hypertension I10 Hypertension type: unspecified DVT prophylaxis Z29.9 (1) Hypertension Hypertension type: unspecified Qualified Code(s): I10 - Essential (primary) hypertension
[2020-03-28] MEDS: traZODone HCL 100 MG TAB PO SCH (19:42)
[2020-03-28] MEDS: SIMVASTATIN 10 MG TAB PO SCH (19:42)
[2020-03-29 07:27] LABS: Basophils # (auto) 0.01 K/uL (0-0.2); Basophils % (auto) 0.1 %; Eosinophils # (auto) 0.08 K/uL (0-0.5); Eosinophils % (auto) 0.5 %; Hemoglobin 14.1 g/dL (12.0-16.0); Immature Granulocytes # (auto) 0.04 K/uL (0.00-0.02); Immature Granulocytes % (auto) 0.3 %; Lymphocytes # (auto) 1.48 K/uL (1.2-3.4); Lymphocytes % (auto) 10.1 %; Mean Corpuscular Hemoglobin 31.8 pg (25-34); Mean Corpuscular Hgb Conc 35.3 g/dL (32-36); Mean Corpuscular Volume 90.1 fL (80-100); Mean Platelet Volume 12.2 fL (7.4-10.4); Monocytes # (auto) 0.66 K/uL (0.11-0.59); Monocytes % (auto) 4.5 %; Neutrophils # (auto) 12.45 K/uL (1.4-6.5); Neutrophils % (auto) 84.5 %; Platelet Count 177 K/uL (130-400); RDW Coefficient of Variation 13.2 % (11.5-14.5); RDW Standard Deviation 43.3 fL (36.4-46.3); Red Blood Count 4.44 M/uL (4.2-5.4); White Blood Count 14.72 K/uL (4.8-10.8)
[2020-03-29 07:44] LABS: BUN Creatinine Ratio 22.5 (10-20); Calcium 9.9 mg/dl (8.5-10.1); Creatinine Clr Calc Pharmacy 45.6 ml/min; Est GFR (African American) 83.3; Est GFR (Non-African American) 71.9; Potassium 3.4 mmol/L (3.5-5.1)
[2020-03-29] MEDS: MONTELUKAST SOD 5 MG CHEWABLE TAB PO SCH (11:23)
[2020-03-29] MEDS: VENLAFAXINE HCL XR 150 MG CAPXR PO SCH (11:24)
[2020-03-29] MEDS: RIVASTIGMINE TARTRATE 1.5 MG CAP PO SCH ×2 (11:24→20:36)
[2020-03-29] MEDS: LISINOPRIL/HCTZ 10/12.5MG TAB PO SCH (11:24)
[2020-03-29] MEDS: METOPROLOL SUCC 25MG EXT REL TAB PO SCH (11:24)
[2020-03-29] MEDS: busPIRone 7.5 MG TAB PO SCH ×2 (11:24→20:36)
[2020-03-29] MEDS: CYANOCOBALAMIN 500 MCG TABLET (VITAMIN B-12) PO SCH (11:24)
--- NOTE | 2020-03-29 13:44 | Hospitalist Progress Note ---
Date of Service March 29, 2020 Assessment & Plan (1) Acute GI bleeding: In setting of diarrhea suspect from COVID-19 infection no further bleeding, Hb is 14 today, continue to watch for bleeding No external hemorrhoids. could be diverticular bleed. Given bright red blood, but no further bleeding Given COVID-19 diagnosis will defer GI consult since would not be a candidate for colonoscopy currently (unknown last colonoscopy if ever) could refer to GI as outpatient if the issue persists (2) Neutrophilia: No infective source found other than COVID-19 order C diff if she has another BM, this could be a cause of bloody diarrhea (3) COVID-19: No hypoxia. No need for treatment at this stage. Only symptom of this appears to be diarrhea as above. (4) Dementia: Orientated to year and self but not place. Risk of delirium - will need to reorientate frequently. Continue rivastigmine 1.5mg BID consult CM for safe discharge planning, per prior visit she lives in apartment consult PT/OT unfortunately her current situation is not safe, no one can check on her due to COVID cannot get caregivers due to COVID will look into SNF options short term, will be here the weekend (5) Anxiety disorder: Continue BuSpar, venlafaxine, trazodone (6) Hypertension: Continue lisinopril/HCTZ and metoprolol. (7) DVT prophylaxis: No SCDs due to dementia/anxiety/falls risk and dubious benefit. No chemical prophylaxis due to lower GI bleed. (8) Hypokalemia: low at 3.4, due to GI losses give 10mEq BID, repeat tomorrow Admission and Anticipated Discharge Date Admission Date: March 27, 2020 Subjective patient very fatigued today, says she is having more diarrhea Hb is stable at 14, no signs of bleeding WBC still high at 14.7, Cr is stable, K is minimally low at 3.4 not eating very well d/w CM, difficult discharge situation, she lives alone in an apartment, not a s afe situation at this time as no family can check on her due to COVID looking into SNF options will get PT/OT evaluations Review of Systems Review of Systems: All systems reviewed & are unremarkable except as noted in Subjective Constitutional: + weakness Gastrointestinal: + diarrhea/loose stools Physical Exam Constitutional: WD/WN, vitals as above Neck: trachea midline, no thyromegaly Respiratory: normal respiratory effort, lungs clear to auscultation Cardiovascular: RRR, no murmur, no edema Gastrointestinal (Abdomen): normal bowel sounds, soft, nontender, no hepatosplenomegaly Musculoskeletal: no cyanosis or clubbing, extremities motor strength 5/5 Skin: no rashes, warm and dry Neurologic: patellar DTR's 2+ bilat, sensation intact and PERRL, EOMI, accommodation nl, no face palsy, no dysarthria Psychiatric: A+Ox3, euthymic affect Lymphatic: no cervical or axillary lymphadenopathy Results & Data Results & Data ([facility]) Vital Signs (Past 12 Hours) Vital Signs Temp Pulse Resp BP Pulse Ox 03/29/20 11:20 37.0 C 78 16 119/66 94 03/29/20 03:00 36.8 C 92 H 16 133/73 97 Laboratory Results Laboratory Results - last 24 hr 03/29/20 03/29/20 06:24 06:24 WBC 14.72 H RBC 4.44 Hgb 14.1 Hct 40.0 MCV 90.1 MCH 31.8 MCHC 35.3 RDW Std Deviation 43.3 RDW Coeff of Marielos 13.2 Plt Count 177 MPV 12.2 H Immature Gran % (Auto) 0.3 Neut % (Auto) 84.5 Lymph % (Auto) 10.1 Isabela % (Auto) 4.5 Eos % (Auto) 0.5 Baso % (Auto) 0.1 Neut # (Auto) 12.45 H Lymph # (Auto) 1.48 Isabela # (Auto) 0.66 H Eos # (Auto) 0.08 Baso # (Auto) 0.01 Immature Gran # (Auto) 0.04 H Sodium 139 Potassium 3.4 L Chloride 104 Carbon Dioxide 29 Anion Gap 6.0 BUN 17 Creatinine 0.77 Est Cr Clr Drug Dosing 45.6 Est GFR ( Amer) 83.3 Est GFR (Non-Af Amer) 71.9 BUN/Creatinine Ratio 22.5 H Glucose 93 Calcium 9.9 Medications Administered Current Inpatient Medications Acetaminophen (Acetaminophen 325 Mg Tab) 650 mg PO Q4H PRN PRN Reason: pain/fever Stop: 04/26/20 20:42 Artificial Tears (Artificial Tears) 1 drops OP Q6H PRN PRN Reason: Dry Eye(S) Stop: 04/26/20 21:05 Buspirone HCl (Buspirone 7.5 Mg Tab) 7.5 mg PO BID [facility] Stop: 04/26/20 20:59 Last Admin: 03/29/20 11:24 Dose: 7.5 mg Documented by: Cyanocobalamin (Cyanocobalamin 500 Mcg Tablet (Vitamin B-12)) 500 mcg PO QAM [facility] Stop: 04/27/20 08:59 Last Admin: 03/29/20 11:24 Dose: 500 mcg Documented by: Lisinopril/HCTZ (Lisinopril/Hctz 10/12.5mg Tab) 1 tab PO QAM [facility] Stop: 04/27/20 08:59 Last Admin: 03/29/20 11:24 Dose: 1 tab Documented by: Metoprolol Succinate (Metoprolol Succ 25mg Ext Rel Tab) 25 mg PO DAILY [facility] Stop: 04/27/20 08:59 Last Admin: 03/29/20 11:24 Dose: 25 mg Documented by: Montelukast Sodium (Montelukast Sod 5 Mg Chewable Tab) 5 mg PO DAILY [facility] Stop: 04/27/20 08:59 Last Admin: 03/29/20 11:23 Dose: 5 mg Documented by: Potassium Chloride (Potassium Chloride 10 Meq Tabcr) 10 meq PO BID [facility] Stop: 04/28/20 20:59 Rivastigmine Tartrate (Rivastigmine Tartrate 1.5 Mg Cap) 1.5 mg PO BID [facility] Stop: 04/26/20 20:59 Last Admin: 03/29/20 11:24 Dose: 1.5 mg Documented by: Simvastatin (Simvastatin 10 Mg Tab) 10 mg PO QPM [facility] Stop: 04/26/20 20:59 Last Admin: 03/28/20 19:42 Dose: 10 mg Documented by: Trazodone HCl (Trazodone Hcl 100 Mg Tab) 100 mg PO HS [facility] Stop: 04/26/20 20:59 Last Admin: 03/28/20 19:42 Dose: 100 mg Documented by: Venlafaxine HCl (Venlafaxine Hcl Xr 150 Mg Capxr) 150 mg PO QAM [facility] Stop: 04/27/20 08:59 Last Admin: 03/29/20 11:24 Dose: 150 mg Documented by: PG Care Time/CCT Total # of Minutes Spent Total Time Spent with Patient: Total time spent is greater than 50% in coordination of care (as documented) at patient's floor/unit and/or counseling patient: Coding Level of Care Code 06281 Subseq Hosp Care Lvl 2 Diagnoses Acute GI bleeding K92.2 Neutrophilia D72.9 COVID-19 U07.1 Dementia F03.90 Anxiety disorder F41.9 Hypertension I10 Hypertension type: unspecified DVT prophylaxis Z29.9 Hypokalemia E87.6 (1) Hypertension Hypertension type: unspecified Qualified Code(s): I10 - Essential (primary) hypertension
[2020-03-29] MEDS: POTASSIUM CHLORIDE 10 MEQ TABCR PO SCH (20:35)
[2020-03-29] MEDS: traZODone HCL 100 MG TAB PO SCH (20:37)
[2020-03-29] MEDS: SIMVASTATIN 10 MG TAB PO SCH (20:37)
[2020-03-30] MEDS: busPIRone 7.5 MG TAB PO SCH ×2 (08:48→19:58)
[2020-03-30] MEDS: VENLAFAXINE HCL XR 150 MG CAPXR PO SCH (08:49)
[2020-03-30] MEDS: LISINOPRIL/HCTZ 10/12.5MG TAB PO SCH (08:50)
[2020-03-30] MEDS: POTASSIUM CHLORIDE 10 MEQ TABCR PO SCH ×2 (08:50→19:57)
[2020-03-30] MEDS: RIVASTIGMINE TARTRATE 1.5 MG CAP PO SCH ×2 (08:50→19:58)
[2020-03-30] MEDS: MONTELUKAST SOD 5 MG CHEWABLE TAB PO SCH (08:51)
[2020-03-30] MEDS: METOPROLOL SUCC 25MG EXT REL TAB PO SCH (08:52)
[2020-03-30] MEDS: CYANOCOBALAMIN 500 MCG TABLET (VITAMIN B-12) PO SCH (08:52)
--- NOTE | 2020-03-30 12:51 | Hospitalist Progress Note ---
Date of Service March 30, 2020 Assessment & Plan (1) Acute GI bleeding: In setting of diarrhea suspect from COVID-19 infection no further bleeding, Hb is 14 03/29, continue to watch for bleeding No external hemorrhoids. (2) Neutrophilia: No infective source found other than COVID-19 order C diff if she has another BM, this could be a cause of bloody diarrhea (3) COVID-19: No hypoxia. No need for treatment at this stage. Only symptom of this appears to be diarrhea as above. (4) Dementia: Orientated to year and self but not place. Risk of delirium - will need to reorientate frequently. Continue rivastigmine 1.5mg BID consult CM for safe discharge planning, per prior visit she lives in apartment consult PT/OT unfortunately her current situation is not safe, no one can check on her due to COVID cannot get caregivers due to COVID will look into SNF options short term, will be here the weekend (5) Anxiety disorder: Continue BuSpar, venlafaxine, trazodone (6) Hypertension: Continue lisinopril/HCTZ and metoprolol. (7) DVT prophylaxis: No SCDs due to dementia/anxiety/falls risk and dubious benefit. No chemical prophylaxis due to lower GI bleed. (8) Hypokalemia: low at 3.4, due to GI losses give 10mEq BID, repeat 03/31 Admission and Anticipated Discharge Date Admission Date: March 30, 2020 Subjective patient more alert today, eating a little better she says that she does not have diarrhea we discussed that she needs to stay in the hospital because family cannot visit her at her apartment she agrees to going to SNF short term if needed vitals stable, no labs today Review of Systems Review of Systems: All systems reviewed & are unremarkable except as noted in Subjective Constitutional: no fever Respiratory: no cough and no dyspnea Cardiovascular: no chest pain Gastrointestinal: + early satiety; no abdominal pain, no nausea, no vomiting, no constipation and no diarrhea/loose stools Neurologic: + confusion Physical Exam Constitutional: WD/WN, vitals as above Neck: trachea midline, no thyromegaly Respiratory: normal respiratory effort, lungs clear to auscultation Cardiovascular: RRR, no murmur, no edema Gastrointestinal (Abdomen): normal bowel sounds, soft, nontender, no hepatosplenomegaly Musculoskeletal: no cyanosis or clubbing, extremities motor strength 5/5 Skin: no rashes, warm and dry Neurologic: patellar DTR's 2+ bilat, sensation intact and PERRL, EOMI, accommodation nl, no face palsy, no dysarthria Psychiatric: A+Ox3, euthymic affect Lymphatic: no cervical or axillary lymphadenopathy Results & Data Results & Data ([facility]) Vital Signs (Past 12 Hours) Vital Signs Temp Pulse Resp BP Pulse Ox 03/30/20 05:56 36.8 C 83 18 146/79 H 94 Medications Administered Current Inpatient Medications Acetaminophen (Acetaminophen 325 Mg Tab) 650 mg PO Q4H PRN PRN Reason: pain/fever Stop: 04/26/20 20:42 Artificial Tears (Artificial Tears) 1 drops OP Q6H PRN PRN Reason: Dry Eye(S) Stop: 04/26/20 21:05 Buspirone HCl (Buspirone 7.5 Mg Tab) 7.5 mg PO BID [facility] Stop: 04/26/20 20:59 Last Admin: 03/30/20 08:48 Dose: 7.5 mg Documented by: Cyanocobalamin (Cyanocobalamin 500 Mcg Tablet (Vitamin B-12)) 500 mcg PO QAM [facility] Stop: 04/27/20 08:59 Last Admin: 03/30/20 08:52 Dose: 500 mcg Documented by: Lisinopril/HCTZ (Lisinopril/Hctz 10/12.5mg Tab) 1 tab PO QAM [facility] Stop: 04/27/20 08:59 Last Admin: 03/30/20 08:50 Dose: 1 tab Documented by: Metoprolol Succinate (Metoprolol Succ 25mg Ext Rel Tab) 25 mg PO DAILY [facility] Stop: 04/27/20 08:59 Last Admin: 03/30/20 08:52 Dose: 25 mg Documented by: Montelukast Sodium (Montelukast Sod 5 Mg Chewable Tab) 5 mg PO DAILY [facility] Stop: 04/27/20 08:59 Last Admin: 03/30/20 08:51 Dose: 5 mg Documented by: Potassium Chloride (Potassium Chloride 10 Meq Tabcr) 10 meq PO BID [facility] Stop: 04/28/20 20:59 Last Admin: 03/30/20 08:50 Dose: 10 meq Documented by: Rivastigmine Tartrate (Rivastigmine Tartrate 1.5 Mg Cap) 1.5 mg PO BID [facility] Stop: 04/26/20 20:59 Last Admin: 03/30/20 08:50 Dose: 1.5 mg Documented by: Simvastatin (Simvastatin 10 Mg Tab) 10 mg PO QPM [facility] Stop: 04/26/20 20:59 Last Admin: 03/29/20 20:37 Dose: 10 mg Documented by: Trazodone HCl (Trazodone Hcl 100 Mg Tab) 100 mg PO HS [facility] Stop: 04/26/20 20:59 Last Admin: 03/29/20 20:37 Dose: 100 mg Documented by: Venlafaxine HCl (Venlafaxine Hcl Xr 150 Mg Capxr) 150 mg PO QAM [facility] Stop: 04/27/20 08:59 Last Admin: 03/30/20 08:49 Dose: 150 mg Documented by: PG Care Time/CCT Total # of Minutes Spent Total Time Spent with Patient: Total time spent is greater than 50% in coordination of care (as documented) at patient's floor/unit and/or counseling patient: Coding Level of Care Code 31263 Subseq Hosp Care Lvl 2 Diagnoses Acute GI bleeding K92.2 Neutrophilia D72.9 COVID-19 U07.1 Dementia F03.90 Anxiety disorder F41.9 Hypertension I10 Hypertension type: unspecified DVT prophylaxis Z29.9 Hypokalemia E87.6 (1) Hypertension Hypertension type: unspecified Qualified Code(s): I10 - Essential (primary) hypertension
[2020-03-30] MEDS: SIMVASTATIN 10 MG TAB PO SCH (19:58)
[2020-03-30] MEDS: traZODone HCL 100 MG TAB PO SCH (19:58)
[2020-03-31 06:28] LABS: Hematocrit (blood only) 37.4 % (37-47); Hemoglobin 12.7 g/dL (12.0-16.0); Mean Corpuscular Hemoglobin 30.7 pg (25-34); Mean Corpuscular Volume 90.3 fL (80-100); Mean Platelet Volume 11.4 fL (7.4-10.4); Platelet Count 163 K/uL (130-400); RDW Coefficient of Variation 13.2 % (11.5-14.5); RDW Standard Deviation 43.1 fL (36.4-46.3); Red Blood Count 4.14 M/uL (4.2-5.4)
[2020-03-31 07:03] LABS: BUN Creatinine Ratio 35.1 (10-20); Calcium 9.3 mg/dl (8.5-10.1); Creatinine Clr Calc Pharmacy 56.7 ml/min; Est GFR (African American) 97.3
[2020-03-31] MEDS: RIVASTIGMINE TARTRATE 1.5 MG CAP PO SCH ×2 (07:54→20:18)
[2020-03-31] MEDS: POTASSIUM CHLORIDE 10 MEQ TABCR PO SCH (07:54)
[2020-03-31] MEDS: busPIRone 7.5 MG TAB PO SCH ×2 (07:55→20:18)
[2020-03-31] MEDS: METOPROLOL SUCC 25MG EXT REL TAB PO SCH (07:55)
[2020-03-31] MEDS: MONTELUKAST SOD 5 MG CHEWABLE TAB PO SCH (07:55)
[2020-03-31] MEDS: LISINOPRIL/HCTZ 10/12.5MG TAB PO SCH (07:56)
[2020-03-31] MEDS: CYANOCOBALAMIN 500 MCG TABLET (VITAMIN B-12) PO SCH (07:56)
[2020-03-31] MEDS: VENLAFAXINE HCL XR 150 MG CAPXR PO SCH (07:56)
--- NOTE | 2020-03-31 12:22 | Hospitalist Progress Note ---
Date of Service March 31, 2020 Assessment & Plan (1) Acute GI bleeding: In setting of diarrhea suspect from COVID-19 infection no further bleeding, Hb is 12.7 today, continue to watch for bleeding No external hemorrhoids. (2) Neutrophilia: No infective source found other than COVID-19 WBC down to 6k without treatment (3) COVID-19: No hypoxia. No need for treatment at this stage. Only symptom of this appears to be diarrhea as above. (4) Dementia: Orientated to self and place Risk of delirium - will need to reorientate frequently. Continue rivastigmine 1.5mg BID consult CM for safe discharge planning, per prior visit she lives in apartment consult PT/OT unfortunately her current situation is not safe, no one can check on her due to COVID cannot get caregivers due to COVID will look into SNF options short term, will be here the weekend she understands and is agreeable with plan (5) Anxiety disorder: Continue BuSpar, venlafaxine, trazodone (6) Hypertension: Continue lisinopril/HCTZ and metoprolol. (7) DVT prophylaxis: No SCDs due to dementia/anxiety/falls risk and dubious benefit. No chemical prophylaxis due to lower GI bleed. (8) Hypokalemia: low at 3.4, due to GI losses treated with 10mEq BID, up to 4.0 today will stop supplements Admission and Anticipated Discharge Date Admission Date: March 30, 2020 Subjective patient doing well, no new issues she knows she is in the hospital I saw that she refused PT when they tried to work with her, told them she was tired I encouraged her to work with PT/OT to assess her strength and safety discussed possible need for short term subacute rehab, she understands and agrees if that is what is needed Review of Systems Review of Systems: All systems reviewed & are unremarkable except as noted in Subjective Physical Exam Constitutional: WD/WN, vitals as above Neck: trachea midline, no thyromegaly Respiratory: normal respiratory effort, lungs clear to auscultation Cardiovascular: RRR, no murmur, no edema Gastrointestinal (Abdomen): normal bowel sounds, soft, nontender, no hepatosplenomegaly Musculoskeletal: no cyanosis or clubbing, extremities motor strength 5/5 Skin: no rashes, warm and dry Neurologic: patellar DTR's 2+ bilat, sensation intact and PERRL, EOMI, accommodation nl, no face palsy, no dysarthria Psychiatric: Orientation: alert, oriented to person, oriented to place and cooperative; + not oriented to time Lymphatic: no cervical or axillary lymphadenopathy Results & Data Results & Data ([facility]) Vital Signs (Past 12 Hours) Vital Signs Temp Pulse Resp BP Pulse Ox 03/31/20 07:59 36.5 C 73 18 144/73 H 95 Laboratory Results Laboratory Results - last 24 hr 03/31/20 03/31/20 05:59 05:59 WBC 6.80 RBC 4.14 L Hgb 12.7 Hct 37.4 MCV 90.3 MCH 30.7 MCHC 34.0 RDW Std Deviation 43.1 RDW Coeff of Marielos 13.2 Plt Count 163 MPV 11.4 H Sodium 138 Potassium 4.0 D Chloride 103 Carbon Dioxide 32 Anion Gap 4.0 BUN 22 H Creatinine 0.62 Est Cr Clr Drug Dosing 56.7 Est GFR ( Amer) 97.3 Est GFR (Non-Af Amer) 84.0 BUN/Creatinine Ratio 35.1 H Glucose 90 Calcium 9.3 Medications Administered Current Inpatient Medications Acetaminophen (Acetaminophen 325 Mg Tab) 650 mg PO Q4H PRN PRN Reason: pain/fever Stop: 04/26/20 20:42 Artificial Tears (Artificial Tears) 1 drops OP Q6H PRN PRN Reason: Dry Eye(S) Stop: 04/26/20 21:05 Buspirone HCl (Buspirone 7.5 Mg Tab) 7.5 mg PO BID [facility] Stop: 04/26/20 20:59 Last Admin: 03/31/20 07:55 Dose: 7.5 mg Documented by: Cyanocobalamin (Cyanocobalamin 500 Mcg Tablet (Vitamin B-12)) 500 mcg PO QAM [facility] Stop: 04/27/20 08:59 Last Admin: 03/31/20 07:56 Dose: 500 mcg Documented by: Lisinopril/HCTZ (Lisinopril/Hctz 10/12.5mg Tab) 1 tab PO QAM [facility] Stop: 04/27/20 08:59 Last Admin: 03/31/20 07:56 Dose: 1 tab Documented by: Metoprolol Succinate (Metoprolol Succ 25mg Ext Rel Tab) 25 mg PO DAILY [facility] Stop: 04/27/20 08:59 Last Admin: 03/31/20 07:55 Dose: 25 mg Documented by: Montelukast Sodium (Montelukast Sod 5 Mg Chewable Tab) 5 mg PO DAILY [facility] Stop: 04/27/20 08:59 Last Admin: 03/31/20 07:55 Dose: 5 mg Documented by: Potassium Chloride (Potassium Chloride 10 Meq Tabcr) 10 meq PO BID [facility] Stop: 04/28/20 20:59 Last Admin: 03/31/20 07:54 Dose: 10 meq Documented by: Rivastigmine Tartrate (Rivastigmine Tartrate 1.5 Mg Cap) 1.5 mg PO BID [facility] Stop: 04/26/20 20:59 Last Admin: 03/31/20 07:54 Dose: 1.5 mg Documented by: Simvastatin (Simvastatin 10 Mg Tab) 10 mg PO QPM [facility] Stop: 04/26/20 20:59 Last Admin: 03/30/20 19:58 Dose: 10 mg Documented by: Trazodone HCl (Trazodone Hcl 100 Mg Tab) 100 mg PO HS [facility] Stop: 04/26/20 20:59 Last Admin: 03/30/20 19:58 Dose: 100 mg Documented by: Venlafaxine HCl (Venlafaxine Hcl Xr 150 Mg Capxr) 150 mg PO QAM [facility] Stop: 04/27/20 08:59 Last Admin: 03/31/20 07:56 Dose: 150 mg Documented by: PG Care Time/CCT Total # of Minutes Spent Total Time Spent with Patient: Total time spent is greater than 50% in coordination of care (as documented) at patient's floor/unit and/or counseling patient: Coding Level of Care Code 13846 Subseq Hosp Care Lvl 2 Diagnoses Acute GI bleeding K92.2 Neutrophilia D72.9 COVID-19 U07.1 Dementia F03.90 Anxiety disorder F41.9 Hypertension I10 Hypertension type: unspecified DVT prophylaxis Z29.9 Hypokalemia E87.6 (1) Hypertension Hypertension type: unspecified Qualified Code(s): I10 - Essential (primary) hypertension
[2020-03-31] MEDS: SIMVASTATIN 10 MG TAB PO SCH (20:18)
[2020-03-31] MEDS: traZODone HCL 100 MG TAB PO SCH (20:18)
[2020-04-01] MEDS: busPIRone 7.5 MG TAB PO SCH ×2 (08:00→19:33)
[2020-04-01] MEDS: VENLAFAXINE HCL XR 150 MG CAPXR PO SCH (08:00)
[2020-04-01] MEDS: RIVASTIGMINE TARTRATE 1.5 MG CAP PO SCH ×2 (08:00→19:32)
[2020-04-01] MEDS: METOPROLOL SUCC 25MG EXT REL TAB PO SCH (08:00)
[2020-04-01] MEDS: CYANOCOBALAMIN 500 MCG TABLET (VITAMIN B-12) PO SCH (08:00)
[2020-04-01] MEDS: LISINOPRIL/HCTZ 10/12.5MG TAB PO SCH (08:00)
[2020-04-01] MEDS: MONTELUKAST SOD 5 MG CHEWABLE TAB PO SCH (08:00)
[2020-04-01 12:38] LABS: Appearance Urine Clear (Clear); Bacteria Urine Automated Negative (Negative); Bilirubin Urine Negative (Negative); Blood Urine Negative (Negative); Color Urine Dark Yellow; Epithelial Cell Urine Auto >30 /lpf (0-5); Glucose Urine UA Negative (Negative); Ketones Urine Trace (Negative); Leukocyte Esterase Urine Negative (Negative); Nitrite Urine Negative (Negative); Protein Urine Trace (Negative); RBC Urine Automated 0-4 /hpf (0-4); Specific Gravity Urine 1.024 (1.000-1.030); Urobilinogen Urine Negative (Negative)
[2020-04-01] MEDS: traZODone HCL 100 MG TAB PO SCH (19:32)
[2020-04-01] MEDS: SIMVASTATIN 10 MG TAB PO SCH (19:32)
--- NOTE | 2020-04-01 21:47 | Hospitalist Progress Note ---
Date of Service April 01, 2020 Assessment & Plan (1) Acute GI bleeding: In setting of diarrhea suspect from COVID-19 infection no further bleeding, Hb is stable at 12.7 No external hemorrhoids. Suspect possibly from internal hemorrhoids versus diverticular bleed Now resolved (2) Neutrophilia: No infective source found other than COVID-19 WBC down to 6k without treatment (3) COVID-19: Continues without any hypoxia-no need for treatment at this stage. Only symptom of this appears to be diarrhea as above which is improving. Continue supportive care, encourage p.o. intake (4) Dementia: Orientated to self and place, moderate in nature Risk of delirium - will need to reorientate frequently. Continue rivastigmine 1.5mg BID consult CM for safe discharge planning, per prior visit she lives in apartment- needs 28/09 supervision consult PT/OT unfortunately her current situation is not safe, no one can check on her due to COVID cannot get caregivers due to COVID will look into SNF options short term, will be here the weekend she understands and is agreeable with plan (5) Anxiety disorder: Continue BuSpar, venlafaxine, trazodone (6) Hypertension: Blood pressures are controlled to mildly elevated -Continue lisinopril/HCTZ and metoprolol. (7) Hypokalemia: Resolved with replacement, was due to GI losses (8) DVT prophylaxis: No SCDs due to dementia/anxiety/falls risk and dubious benefit. No chemical prophylaxis due to lower GI bleed. Disposition-awaiting placement through case management Admission and Anticipated Discharge Date Admission Date: March 30, 2020 Subjective Patient was confused and did not remember that she was in the hospital. She seemed upset when I told her that she was in the hospital. When I told her that she had Covid-19, she stated "I just cannot believe it, I cannot believe it." She denies any chest pains or shortness of breath, no nausea or vomiting, but reports that she does not feel like eating much. She remains off oxygen. She denies any other problems. Review of Systems Review of Systems: All systems reviewed & are unremarkable except as noted in HPI & below Physical Exam Constitutional: WD/WN, vitals as above Eyes: + anicteric sclerae Neck: trachea midline, no thyromegaly Respiratory: normal respiratory effort, lungs clear to auscultation Cardiovascular: RRR, no murmur, no edema Chest (Breasts): Chest: normal inspection of chest Gastrointestinal (Abdomen): normal bowel sounds, soft, nontender, no hepatosplenomegaly Musculoskeletal: Extremities: extremities normal to inspection; no cyanosis and no clubbing Skin: no rashes, warm and dry Neurologic: moves all extremities and awake; no focal motor deficits Psychiatric: Orientation: alert, oriented to person and cooperative; + not oriented to place and + not oriented to time Lymphatic: no lymphedema Results & Data Results & Data ([facility]) Vital Signs (Past 12 Hours) Vital Signs Temp Pulse Resp BP Pulse Ox 04/01/20 15:05 36.6 C 88 17 122/74 94 PG Care Time/CCT Total # of Minutes Spent Total Time Spent with Patient: Total time spent is greater than 50% in coordination of care (as documented) at patient's floor/unit and/or counseling patient: Coding Level of Care Code 06323 Subseq Hosp Care Lvl 2 Diagnoses Acute GI bleeding K92.2 Neutrophilia D72.9 COVID-19 U07.1 Dementia F03.90 Anxiety disorder F41.9 Hypertension I10 Hypertension type: unspecified Hypokalemia E87.6 DVT prophylaxis Z29.9 (1) Hypertension Hypertension type: unspecified Qualified Code(s): I10 - Essential (primary) hypertension
[2020-04-02 06:50] LABS: Basophils # (auto) 0.01 K/uL (0-0.2); Basophils % (auto) 0.2 %; Eosinophils # (auto) 0.39 K/uL (0-0.5); Eosinophils % (auto) 6.8 %; Hematocrit (blood only) 37.7 % (37-47); Hemoglobin 12.9 g/dL (12.0-16.0); Immature Granulocytes % (auto) 1.8 %; Lymphocytes # (auto) 1.44 K/uL (1.2-3.4); Lymphocytes % (auto) 25.3 %; Mean Corpuscular Hgb Conc 34.2 g/dL (32-36); Mean Corpuscular Volume 90.6 fL (80-100); Mean Platelet Volume 11.2 fL (7.4-10.4); Monocytes # (auto) 0.67 K/uL (0.11-0.59); Monocytes % (auto) 11.8 %; Neutrophils # (auto) 3.09 K/uL (1.4-6.5); Neutrophils % (auto) 54.1 %; Platelet Count 177 K/uL (130-400); RDW Coefficient of Variation 13.2 % (11.5-14.5); RDW Standard Deviation 43.6 fL (36.4-46.3); Red Blood Count 4.16 M/uL (4.2-5.4)
[2020-04-02 07:17] LABS: BUN Creatinine Ratio 19.8 (10-20); Calcium 9.5 mg/dl (8.5-10.1); Creatinine Clr Calc Pharmacy 46.8 ml/min; Est GFR (Non-African American) 74.2; Potassium 3.8 mmol/L (3.5-5.1)
[2020-04-02] MEDS: RIVASTIGMINE TARTRATE 1.5 MG CAP PO SCH ×2 (07:53→20:25)
[2020-04-02] MEDS: LISINOPRIL/HCTZ 10/12.5MG TAB PO SCH (07:53)
[2020-04-02] MEDS: busPIRone 7.5 MG TAB PO SCH ×2 (07:53→20:25)
[2020-04-02] MEDS: CYANOCOBALAMIN 500 MCG TABLET (VITAMIN B-12) PO SCH (07:56)
[2020-04-02] MEDS: VENLAFAXINE HCL XR 150 MG CAPXR PO SCH (07:56)
[2020-04-02] MEDS: MONTELUKAST SOD 5 MG CHEWABLE TAB PO SCH (07:57)
[2020-04-02] MEDS: METOPROLOL SUCC 25MG EXT REL TAB PO SCH (08:01)
--- NOTE | 2020-04-02 13:41 | Hospitalist Progress Note ---
Date of Service April 02, 2020 Assessment & Plan (1) Acute GI bleeding: In setting of diarrhea suspect from COVID-19 infection no further bleeding, Hb is stable at 12.9 No external hemorrhoids. Suspect possibly from internal hemorrhoids versus diverticular bleed Now resolved (2) Neutrophilia: No infective source found other than COVID-19 WBC down to 5k without treatment (3) COVID-19: Continues without any hypoxia-no need for treatment at this stage. Only symptom of this appears to be diarrhea as above which is now resolved Continue supportive care, encourage p.o. intake (4) Dementia: Orientated to self and place intermittently, moderate in nature Risk of delirium - will need to reorientate frequently. Continue rivastigmine 1.5mg BID consult CM for safe discharge planning, per prior visit she lives in apartment- needs 28/09 supervision consult PT/OT unfortunately her current situation is not safe, no one can check on her due to COVID cannot get caregivers due to COVID will look into SNF options short term she understands and is agreeable with plan (5) Anxiety disorder: Continue BuSpar, venlafaxine, trazodone (6) Hypertension: Blood pressures are controlled to mildly elevated -Continue lisinopril/HCTZ and metoprolol. (7) Hypokalemia: Resolved with replacement, was due to GI losses (8) DVT prophylaxis: No SCDs due to dementia/anxiety/falls risk and dubious benefit. No chemical prophylaxis due to lower GI bleed. Disposition-awaiting placement through case management-accepted at [facility] tomorrow but awaiting insurance approval Admission and Anticipated Discharge Date Admission Date: March 30, 2020 Subjective Pt anxious, forgetful. Does not know where she is but after I tell her she's in the hospital, she feels relieved. SHe again is surprised when I remind her she has COVID-19. SHe has not had any more rectal bleeding, she is eating and drinking. Does say she has a mild cough today when asked. No fevers Review of Systems Review of Systems: All systems reviewed & are unremarkable except as noted in HPI & below Physical Exam Constitutional: WD/WN, vitals as above Eyes: + anicteric sclerae Neck: trachea midline, no thyromegaly Respiratory: normal respiratory effort, lungs clear to auscultation Cardiovascular: RRR, no murmur, no edema Chest (Breasts): Chest: normal inspection of chest Gastrointestinal (Abdomen): normal bowel sounds, soft, nontender, no hepatosplenomegaly Musculoskeletal: Extremities: extremities normal to inspection; no cyanosis and no clubbing Skin: no rashes, warm and dry Neurologic: moves all extremities and awake; no focal motor deficits Psychiatric: Orientation: alert, oriented to person and cooperative; + not oriented to place and + not oriented to time Lymphatic: no lymphedema Results & Data Results & Data ([facility]) Vital Signs (Past 12 Hours) Vital Signs Temp Pulse Resp BP Pulse Ox 04/02/20 08:04 36.8 C 76 16 122/69 98 Laboratory Results 04/02/20 04/02/20 Range/Units 06:25 06:25 WBC 5.70 (4.8-10.8) K/uL RBC 4.16 L (4.2-5.4) M/uL Hgb 12.9 (12.0-16.0) g/dL Hct 37.7 (37-47) % MCV 90.6 (80-100) fL MCH 31.0 (25-34) pg MCHC 34.2 (32-36) g/dL RDW Std Deviation 43.6 (36.4-46.3) fL RDW Coeff of Marielos 13.2 (11.5-14.5) % Plt Count 177 (130-400) K/uL MPV 11.2 H (7.4-10.4) fL Immature Gran % (Auto) 1.8 % Neut % (Auto) 54.1 % Lymph % (Auto) 25.3 % Foard % (Auto) 11.8 % Eos % (Auto) 6.8 % Baso % (Auto) 0.2 % Neut # (Auto) 3.09 (1.4-6.5) K/uL Lymph # (Auto) 1.44 (1.2-3.4) K/uL Foard # (Auto) 0.67 H (0.11-0.59) K/uL Eos # (Auto) 0.39 (0-0.5) K/uL Baso # (Auto) 0.01 (0-0.2) K/uL Immature Gran # (Auto) 0.10 H (0.00-0.02) K/uL Sodium 139 (136-145) mmol/L Potassium 3.8 (3.5-5.1) mmol/L Chloride 104 (98-107) mmol/L Carbon Dioxide 30 (21-32) mmol/L Anion Gap 5.0 (3-11) BUN 15 (7-18) mg/dl Creatinine 0.75 (0.6-1.2) mg/dl Est Cr Clr Drug Dosing 46.8 ml/min Est GFR ( Amer) 86.0 Est GFR (Non-Af Amer) 74.2 BUN/Creatinine Ratio 19.8 (10-20) Glucose 96 (70-99) mg/dl Calcium 9.5 (8.5-10.1) mg/dl PG Care Time/CCT Total # of Minutes Spent Total Time Spent with Patient: Total time spent is greater than 50% in coordination of care (as documented) at patient's floor/unit and/or counseling patient: Coding Level of Care Code 68853 Subseq Hosp Care Lvl 2 Diagnoses Acute GI bleeding K92.2 Neutrophilia D72.9 COVID-19 U07.1 Dementia F03.90 Anxiety disorder F41.9 Hypertension I10 Hypertension type: unspecified Hypokalemia E87.6 DVT prophylaxis Z29.9 (1) Hypertension Hypertension type: unspecified Qualified Code(s): I10 - Essential (primary) hypertension
[2020-04-02] MEDS: traZODone HCL 100 MG TAB PO SCH (20:25)
[2020-04-02] MEDS: SIMVASTATIN 10 MG TAB PO SCH (20:26)
[2020-04-03] MEDS ORDERED: DOCUSATE SODIUM 100 MG CAP PO SCH (10:00)
[2020-04-03] MEDS: LISINOPRIL/HCTZ 10/12.5MG TAB PO SCH (10:08)
[2020-04-03] MEDS: VENLAFAXINE HCL XR 150 MG CAPXR PO SCH (10:08)
[2020-04-03] MEDS: METOPROLOL SUCC 25MG EXT REL TAB PO SCH (10:08)
[2020-04-03] MEDS: CYANOCOBALAMIN 500 MCG TABLET (VITAMIN B-12) PO SCH (10:09)
[2020-04-03] MEDS: RIVASTIGMINE TARTRATE 1.5 MG CAP PO SCH (10:09)
[2020-04-03] MEDS: MONTELUKAST SOD 5 MG CHEWABLE TAB PO SCH (10:09)
[2020-04-03] MEDS: busPIRone 7.5 MG TAB PO SCH (10:09)
--- NOTE | 2020-04-03 11:30 | Discharge Summary ---
Date of Service April 03, 2020 Admission HPI Per Admitting Provider 84-year-old female who presents to the ER with rectal bleeding. She reports having a large bowel movement of bright red blood this morning causing her much concern and she felt like she was going to . Reportedly had another episode in the ER. No chest pain, lightheadedness, shortness of breath. Hgb at baseline. She denies any history of colonoscopy but cannot be sure about this. She reports being in her normal state of health yesterday. No nausea, vomiting, prior GI bleeds, NSAID use, melena. In the ER CT A/P and CXR picked up concerning findings for viral pneumonia. Subsequent SARS-COV-2 PCR positive with leukopenia on CBC diff. No hypoxia. She was referred to medicine for GI bleed and COVID-19. Principal Diagnosis Rectal bleeding, COVID-19 Discharge Exam Constitutional WD/WN, vitals as above Eyes + anicteric sclerae Neck trachea midline, no thyromegaly Respiratory normal respiratory effort, lungs clear to auscultation Cardiovascular RRR, no murmur, no edema Chest (Breasts) Chest: normal inspection of chest Gastrointestinal (Abdomen) normal bowel sounds, soft, nontender, no hepatosplenomegaly Musculoskeletal Extremities: extremities normal to inspection; no cyanosis and no clubbing Skin no rashes, warm and dry Neurologic moves all extremities and awake; no focal motor deficits Psychiatric Orientation: alert, oriented to person, oriented to place and cooperative; + not oriented to time Affect: + anxious affect Cognition: + recent memory not intact Lymphatic no lymphedema Discharge Data Allergies Allergy/AdvReac Type Severity Reaction Status Date / Time Penicillins Allergy Intermediate HIVES Verified 03/11/20 13:06 Sulfa (Sulfonamide Allergy Intermediate Hives Verified 03/11/20 13:06 Antibiotics) adhesive Allergy Mild redness Verified 03/11/20 13:06 aspirin Allergy Unknown Unknown Verified 03/11/20 13:06 atorvastatin Allergy Unknown unknown Verified 03/11/20 13:06 Cipro Allergy Unknown ? Unverified 06/22/15 15:06 ciprofloxacin Allergy Unknown Unknown Verified 03/11/20 13:06 clindamycin Allergy Unknown Unknown Verified 03/11/20 13:06 erythromycin base Allergy Unknown Unknown Verified 03/11/20 13:06 escitalopram Allergy Unknown Unknown Verified 03/11/20 13:06 etodolac Allergy Unknown Unknown Verified 03/11/20 13:06 meloxicam Allergy Unknown unknown Verified 03/11/20 13:06 metronidazole Allergy Unknown Unknown Verified 03/11/20 13:06 naloxone [From Chantal NX] Allergy Unknown Unknown Verified 03/11/20 13:06 omeprazole Allergy Unknown Unknown Verified 03/11/20 13:06 pentazocine Allergy Unknown Unknown Verified 03/11/20 13:06 polyethylene glycol 400 Allergy Unknown Unknown Verified 03/11/20 13:06 [From Systane (propylene glycol)] propylene glycol Allergy Unknown Unknown Verified 03/11/20 13:06 [From Systane (propylene glycol)] pseudoephedrine Allergy Unknown Unknown Verified 03/11/20 13:06 temazepam Allergy Unknown Unknown Verified 03/11/20 13:06 tramadol Allergy Unknown Unknown Verified 03/11/20 13:06 fluvoxamine AdvReac Mild GI SYMPTOMS Verified 03/11/20 13:06 gabapentin AdvReac Mild gi symptoms Verified 03/11/20 13:06 hydralazine AdvReac Mild gi symptoms Verified 03/11/20 13:06 meclizine AdvReac Mild nausea/ Verified 03/11/20 13:06 vomiting prednisone AdvReac Mild thrush Verified 03/11/20 13:06 promethazine AdvReac Mild gi symptoms Verified 03/11/20 13:06 quetiapine AdvReac Mild gi symptoms Verified 03/11/20 13:06 risperidone AdvReac Mild GI SYMPTOMS Verified 03/11/20 13:06 Consultations 03/27/20 18:18 ED Decision to Admit Stat 03/28/20 20:40 Consult Case Management - Discharge Planning Routine Ordered Studies 03/27/20 15:19 CT abd pelvis IV con only Stat CXR Hospital Course (1) Acute GI bleeding: In setting of diarrhea suspect from COVID-19 infection no further bleeding, Hb is stable at 12.9 No external hemorrhoids. Suspect possibly from internal hemorrhoids versus diverticular bleed Now resolved no colonoscopy needed unless recurs -start docusate bid and high fiber diet (2) Neutrophilia: No infective source found other than COVID-19 WBC down to 5k without treatment (3) COVID-19: Continues without any hypoxia-no need for treatment at this stage. Only symptom of this appears to be diarrhea as above which is now resolved Continue supportive care, encourage p.o. intake If became hypoxic, start dexamethasone at SNF (4) Dementia: Orientated to self and place intermittently, moderate in nature Risk of delirium - will need to reorientate frequently. Continue rivastigmine 1.5mg BID Did note on day of discharge that she has not been getting her usual daily clonazepam 0.5mg po that she takes chronically--> this would explain a lot of the anxiety she has had here in the hospital--recommend restarting this and consider lowering dose to 0.25mg daily as an outpt-follows with [facility]. Law consult CM for safe discharge planning, per prior visit she lives in apartment- needs 28/09 supervision consult PT/OT appreciated unfortunately her current situation is not safe, no one can check on her due to COVID cannot get caregivers due to COVID she understands and is agreeable with plan for rehab placement (5) Anxiety disorder: Continue BuSpar, venlafaxine, trazodone clonazepam held here but restart on dc as above (6) Hypertension: Blood pressures are controlled to mildly elevated -Continue lisinopril/HCTZ and metoprolol. (7) Hypokalemia: Resolved with replacement, was due to GI losses (8) DVT prophylaxis: No SCDs due to dementia/anxiety/falls risk and dubious benefit. No chemical prophylaxis due to lower GI bleed. Disposition-stable for dc to SNF today Total Time Total Time Spent Total Time Spent (In Minutes): 35 min Total Time Includes: Examination of the Patient, Discharge Planning and Medication Reconciliation Discharge Plan Discharge Items Patient Disposition: Transfer Intermediate Fac Reason For Visit: AB PAIN, RECTAL BLEEDING, ANXIETY Discharge Diagnosis: Rectal bleeding, COVID-19 Condition on Discharge: Good Activity: As commented below Lifting: Gradually increase as tolerated Bathing: No limitations Exercise/Sports: Gradually increase as tolerated Weightbearing: Full weightbearing Non-emergency contact: Primary Care Provider Call non-emergency contact if: you have any medication questions and your symptoms worsen Follow-up/Referrals: Nando Horton DO [Primary Care Provider] - 04/10/20 11:30 am (TELEPHONE VISIT WITH PCP) Diet: Regular Diet Comment: High fiber to prevent hemorrhoidal bleeding Addtl Attending Provider Instructions: You were admitted to the hospital with rectal bleeding and found to have COVID- 19. Fortunately you had no difficulty with the COVID-19 other than some previous diarrhea which is now resolved. Your blood count remained stable and bleeding stopped. You most likely had some internal hemorrhoids that bled and should stay on a stool softener and high fiber diet to prevent this in the future. You do not require any treatment for your COVID-19 at this point, but if you develop low oxygen levels at the rehab facility, then you should be started on dexamethasone. Pending Studies at Discharge: No Stand-Alone Forms: My [facility] Skilled Items Patient informed of condition?: Yes DNR: Yes Discharge Level of Care: Skilled Communicable Disease: Yes Discharge Prognosis: Improving Lines: None Urinary Catheter: No Medications and DC Order Prescriptions: New docusate sodium 100 mg Capsule 100 mg PO BID Qty: 60 RF: 0 Continued lisinopril-hydrochlorothiazide 10-12.5 mg tablet 1 tab PO QAM Qty: 90 RF: 3 metoprolol succinate 25 mg tablet extended release 24 hr 25 mg PO DAILY Qty: 90 RF: 3 montelukast [Singulair] 5 mg tablet,chewable 5 mg PO DAILY Qty: 90 RF: 3 simvastatin 10 mg tablet 10 mg PO QPM Qty: 90 RF: 3 trazodone 100 mg tablet 100 mg PO HS RF: 0 rivastigmine tartrate 1.5 mg capsule 1.5 mg PO BID Qty: 60 RF: 2 clonazepam 0.5 mg tablet 0.5 mg PO DAILY Qty: 1 RF: 0 venlafaxine [Effexor XR] 150 mg capsule,extended release 24hr 150 mg PO QAM RF: 0 cholecalciferol (vitamin D3) 400 unit tablet 400 unit PO QAM RF: 0 cyanocobalamin (vitamin B-12) 500 mcg tablet 500 mcg PO QAM RF: 0 buspirone 7.5 mg tablet 7.5 mg PO BID RF: 0 Systane Balance 0.6 % drops 1 drp OPHTHALMIC (EYE) Q6H PRN (Reason: Dry Eye(S)) RF: 0 triamcinolone acetonide 0.1 % cream 1 applic TOPICAL BID PRN (Reason: Rash) RF: 0 magnesium hydroxide [Milk of Magnesia] 400 mg/5 mL suspension 5 ml PO DAILY PRN (Reason: Stomach Upset) RF: 0 Discontinued benzonatate [Tessalon Perles] 100 mg capsule 100 mg PO BID PRN (Reason: Cough) Qty: 180 RF: 0 Discharge Orders: Discharge Order (Routine); Ordered 04/03/20 Ordered By: Lizeth Qiu Admission Data Admit Date/Time: 03/30/20 09:04 Attending Provider: Lizeth Qiu Admit Provider: Sven Ramesh Primary Care Provider: Nando Horton Other Providers: Sven Ramesh ; [facility] Coding Level of Care Code D/C Day Management >30 mins Diagnoses Acute GI bleeding K92.2 Neutrophilia D72.9 COVID-19 U07.1 Dementia F03.90 Anxiety disorder F41.9 Hypertension I10 Hypertension type: unspecified Hypokalemia E87.6 DVT prophylaxis Z29.9
== END 2020-04-03 15:51 | DRG 377 ==
LOC: 3E 14:59 → ED 14:59 → SUATTDRO 19:01 → 3E 19:51 → SUATTDRO 03-30 09:04

== ENCOUNTER 2025-01-23 11:07 | Inpatient (IN) ==
--- NOTE | 2025-01-23 11:11 | Emergency Department Note ---
ED Visit Note I was consulted by the Advanced Practice Provider Cassie Chao PA-C. I performed a substantive portion of the visit including all aspects of medical decision making. Patient presented due to concern for fall. Patient with a femur fracture. Patient was admitted to the medicine service. .
--- NOTE | 2025-01-23 11:34 | Emergency Department Note ---
Impression & Plan Hypoxic, Ground-level fall, Displaced fracture of left femoral neck ED Provider Note NAME: STEPHANIE JO AGE: 89 SEX: F : 1935 ARRIVES VIA: Ambulance INFORMANT: The patient and EMS report. ED PROVIDER(S): Cassie Chao PA-C, [Kelvin Santoyo MD] CHIEF COMPLAINT: Fall, hip and pelvis pain HISTORY OF PRESENTING ILLNESS: The patient is an 89-year-old female with a H anxiety, GERD, hyperlipidemia, HTN, insomnia, asthma, and dementia who presents to the emergency department via EMS due to a fall 2 days ago. Patient lives at [facility] and had a fall in the bathroom 2 days ago injuring her left hip. She denies hitting her head, LOC, and is not on blood thinners. She typically ambulates on her own and goes for 10 to 15-minute walks daily however since the fall has been in a wheelchair due to discomfort. History is provided by herself, EMS staff, as well as family members that I contacted. EMS reports patient was noted to be hypoxic in ambulance and 88% requiring 3 L nasal cannula which quickly improved oxygen saturation. The patient does not typically require oxygen and denies feeling short of breath. She denies headache, changes in vision, neck pain, chest pain, shortness of breath, abdominal pain, back pain, urinary symptoms, or any other concerns at this time. REVIEW OF SYSTEMS: See HPI for pertinent positives and pertinent negatives. ALLERGIES: See below MEDICATIONS: See below PAST MEDICAL HISTORY: See below PHYSICAL EXAM: VITALS: Vitals are noted on the nurses note and reviewed by myself. Vital signs stable. GENERAL: 89-year-old female, lying flat in bed, in no acute distress, nondiaphoretic, well-developed well-nourished. SKIN: Capillary refill less than 2 seconds. Area of ecchymosis appreciated over the posterior lateral aspect of the left hip. HEENT: Normocephalic. PERRLA. EOMI. Nares patent. Mucous membranes moist. Neck is supple without nuchal rigidity. HEART: Regular rate and rhythm without murmurs gallops or rubs. LUNGS: CTA BL without wheezes, rales or rhonchi. No retractions or accessory muscle use. ABDOMEN: Soft, mild umbilical tenderness on exam, all other quadrants nontender, without masses or organomegaly. No guarding or rebound tenderness. MUSCULOSKELETAL: When asked to lift the left leg off the bed the patient is not able to do so. The tenderness upon palpation to the anterior and lateral aspect of the left hip. 2+ dorsalis pedis pulse palpated bilaterally. NEURO: Patient was alert and oriented. She knows her name, where she is, and that she fell injuring her left hip. She did get the date/time wrong. Normal sensation on exam. No focal neurological deficits. DIFFERENTIAL DIAGNOSIS: Hip fracture, acetabular fracture, pelvic fracture, femoral head fracture, hip dislocation, hip contusion, muscular strain, bursitis, tendon injury, labral tear, among others. ED COURSE AND MEDICAL DECISION MAKING: MEDICATIONS GIVEN: Tylenol 1000 mg IV INTERPRETATION OF LABS: I interpreted the labs with full lab results as below in the lab section of this note. Pertinent lab results discussed in the MDM section below. INTERPRETATION OF IMAGING: I informally interpreted the patient's left hip and pelvis x-ray which shows an obvious femoral fracture and reviewed formal report. ESCALATION OF CARE CONSIDERED: Escalation of care considered as the patient had fallen injuring her left hip. X-ray obtained showing left femoral neck fracture. Patient was admitted to medicine for orthopedic consult and surgical repair in the morning. CONSULTATIONS: On-call orthopedic provider Dr. Clark - Presented the patient to the provider I discussed with him the patient was previously ambulatory before the fall. Patient does have a history of dementia and I did speak with her power of clinical laboratory aide/family members who do believe she would want the surgical repair and they are agreeable. He agrees to evaluating the patient tomorrow for possible surgical operation. On-call hospitalist - Presented the patient to the provider and my discussion with the orthopedic surgeon who will evaluate the patient in the morning. They agreed to evaluate the patient and admitting her. CRITICAL CARE: I have personally spent greater than 30 minutes of critical care time in the direct management of this patient. This includes bedside care, interpretation of diagnostic studies, and testing, discussion with consultants, patient, and family members, and other required patient management activities. This 30 minutes is in excess of all separately billable procedures. MDM SUMMARY: I evaluated the 89-year-old female who presents to the emergency department via EMS due to a fall 2 days ago and worsening left hip pain. See HPI and PE above. Patient was on 2-3 L nasal cannula upon arrival from EMS due to patient becoming hypoxic and route to the hospital. This is new for her. She denies feeling short of breath. She is stable on 2 L nasal cannula currently. When attempting to turn off oxygen patient again was 89%. Will continue at 2 L nasal cannula as patient remained stable. All other vital stable. She does report left hip pain on exam. Tylenol given for symptom management. Patient does have a history of dementia and mild umbilical abdominal pain appreciated on exam. Due to new hypoxia and abdominal pain CT imaging ordered to rule out other traumatic injury from fall. CT chest, abdomen, pelvis shows no acute traumatic findings. No PE. Chronic T10 compression deformity with mild age-indeterminate T7 depression deformity is new from 2019 noted to be subacute or chronic. Hip and pelvis x-ray obtained showing acute fracture of the left femoral neck. No dislocation. Imaging results reviewed with the patient. I did contact the patient's family members to discuss fracture and my conversation with the orthopedic provider. Patient's POA confirms that she was very ambulatory prior to the fall. Consultation with on-call orthopedic provider can be seen in detail above. They recommend surgical repair if patient was previously ambulatory. Family agrees. Consultation with on-call hospitalist can be seen in detail above. BioFire pending for possible cause of hypoxia. Hospitalist agrees to admit patient to medicine. See their note for further workup and management. DIAGNOSIS: Fracture of left femoral neck, hypoxic, fall The chart was completed utilizing [employer] Speech voice recognition software. Grammatical errors, random word insertions, pronoun errors, and incomplete sentences are an occasional consequence of this system due to software limitations, ambient noise, and hardware issues. Any formal questions or concerns about the content, text, or information contained within the body of this dictation should be directly addressed to the provider for clarification. TREATMENT PLAN/DISCHARGE INSTRUCTIONS: The patient was admitted. See hospitalist note for further management. Past Med/Surg History Problem List Hypoxic (Acute) Ground-level fall (Acute) Displaced fracture of left femoral neck (Acute) Dysphagia, oropharyngeal phase Dysphagia Encounter for pre-operative examination COVID-19 (Acute) Chronic cough Palpitations Dementia Breast pain Shoulder pain, left Skin lesion of back 4mm flesh colored mole, center of back. Insomnia Gastroesophageal reflux disease Anxiety disorder Stress incontinence in female (Acute) Meningioma (Chronic ~2014) Hypertension (Acute) Asthma (Chronic) Hyperlipidemia Medical History Dementia Acute GI bleeding Confusion Poor historian Rectal bleeding ? reason for colonoscopy?? Head pain following with Dr. Rodríguez History of Holter monitoring wore recently 08/2019, no result yet, d/t pain in chest/breast area Asthma inhaler prn Breast mass Osteoarthritis of left knee Dysphagia Prior evaluation Osteopenia Constipation Atypical chest pain SNHL (sensorineural hearing loss) Nontoxic multinodular goiter Mild cognitive impairment Glaucoma Fibromyalgia Cerebral atherosclerosis following with Dr. Rodríguez Allergic rhinitis due to dust Surgical History History of tooth extraction partial upper/lower denture History of colonoscopy History of cataract surgery unsure which eye Family History Brother Acute myocardial infarction Stroke syndrome Family history of diabetes mellitus Sister Family history of diabetes mellitus Unknown Ovarian cancer Heart disease Hypertension Mother Ovarian cancer Brother Family history of diabetes mellitus Sister Family history of diabetes mellitus Other No family history of adverse response to anesthesia Social History Smoking Status: Unknown if ever smoked Age Started Using Tobacco: 21; Age Quit Using Tobacco: 22; packs per day: 0.5; Second Hand Exposure: No; Do You Dip or Chew Tobacco: No; Hx Alcohol Use: No Hx Substance Use: No Preferred Language: [place] Communication Ability: Effective Visual Impairment: Diminished Hearing Ability: Normal Construction Electrician Required: No Beliefs That Will Affect Care: None marital status: / Current Living Situation: Senior Living Current Living Situation Comment: [facility] current occupational status: retired Feels Safe at Home: Yes Childhood Exposure to Second-Hand Smoke: No Diet: regular caffeine: No Dental Care, Regularly: Yes Physical Activity Frequency: Does not Exercise Seatbelt Use: always Sunscreen Use: No Assistive Devices: None Allergies Allergies Allergy/AdvReac Type Severity Reaction Status Date / Time Penicillins Allergy Intermediate HIVES Verified 01/21/21 09:39 Sulfa (Sulfonamide Allergy Intermediate Hives Verified 01/21/21 09:39 Antibiotics) adhesive Allergy Mild redness Verified 01/21/21 09:39 aspirin Allergy Unknown Unknown Verified 01/21/21 09:39 atorvastatin Allergy Unknown unknown Verified 01/21/21 09:39 Cipro Allergy Unknown ? Unverified 06/22/15 15:06 ciprofloxacin Allergy Unknown Unknown Verified 01/21/21 09:39 clindamycin Allergy Unknown Unknown Verified 01/21/21 09:39 erythromycin base Allergy Unknown Unknown Verified 01/21/21 09:39 escitalopram Allergy Unknown Unknown Verified 01/21/21 09:39 etodolac Allergy Unknown Unknown Verified 01/21/21 09:39 meloxicam Allergy Unknown unknown Verified 01/21/21 09:39 metronidazole Allergy Unknown Unknown Verified 01/21/21 09:39 naloxone [From Talwin NX] Allergy Unknown Unknown Verified 01/21/21 09:39 omeprazole Allergy Unknown Unknown Verified 01/21/21 09:39 pentazocine Allergy Unknown Unknown Verified 01/21/21 09:39 polyethylene glycol 400 Allergy Unknown Unknown Verified 01/21/21 09:39 [From Systane (propylene glycol)] propylene glycol Allergy Unknown Unknown Verified 01/21/21 09:39 [From Systane (propylene glycol)] pseudoephedrine Allergy Unknown Unknown Verified 01/21/21 09:39 temazepam Allergy Unknown Unknown Verified 01/21/21 09:39 tramadol Allergy Unknown Unknown Verified 01/21/21 09:39 fluvoxamine AdvReac Mild GI SYMPTOMS Verified 01/21/21 09:39 gabapentin AdvReac Mild gi symptoms Verified 01/21/21 09:39 hydralazine AdvReac Mild gi symptoms Verified 01/21/21 09:39 meclizine AdvReac Mild nausea/ Verified 01/21/21 09:39 vomiting prednisone AdvReac Mild thrush Verified 01/21/21 09:39 promethazine AdvReac Mild gi symptoms Verified 01/21/21 09:39 quetiapine AdvReac Mild gi symptoms Verified 01/21/21 09:39 risperidone AdvReac Mild GI SYMPTOMS Verified 01/21/21 09:39 Home Meds Home Medications Medication Instructions Recorded Confirmed buspirone 7.5 mg tablet 7.5 mg PO BID 11/07/18 01/21/21 cholecalciferol (vitamin D3) 10 400 unit PO QAM 11/07/18 01/21/21 mcg (400 unit) tablet cyanocobalamin (vitamin B-12) 500 500 mcg PO QAM 11/07/18 01/21/21 mcg tablet propylene glycol 0.6 % eye drops 1 drp ophthalmic (eye) Q6H PRN Dry 11/07/18 01/21/21 (Systane Balance) Eye(S) trazodone 100 mg tablet 100 mg PO HS 11/07/18 01/21/21 venlafaxine 150 mg 150 mg PO QAM 11/07/18 01/21/21 capsule,extended release 24 hr (Effexor XR) magnesium hydroxide 400 mg/5 mL 5 ml PO DAILY PRN Stomach Upset 11/06/19 01/21/21 oral suspension (Milk of Magnesia) triamcinolone acetonide 0.1 % 1 applic topical BID PRN Rash 11/06/19 01/21/21 topical cream acetaminophen 325 mg capsule 325 mg PO QID PRN Pain 01/08/21 01/21/21 (Tylenol) bisacodyl 10 mg rectal suppository 10 mg UT DAILY PRN Constipation 01/08/21 01/21/21 (Dulcolax (bisacodyl)) clonazepam 0.5 mg tablet 0.5 mg PO DAILY PRN Anxiety 01/08/21 01/21/21 diclofenac sodium 1 % topical gel 2 g topical QID PRN Pain 01/08/21 01/21/21 donepezil 5 mg tablet 5 mg PO DAILY 01/08/21 01/21/21 fluticasone 100 mcg-salmeterol 50 1 inh inhalation BID 01/08/21 01/21/21 mcg/dose blistr powdr for inhalation (Advair Diskus) guaifenesin 600 mg tablet, 600 mg PO BID PRN Congestion 01/08/21 01/21/21 extended release 12 hr (Mucinex) sodium phosphates 19 gram-7 118 ml UT DAILY PRN Constipation 01/08/21 01/21/21 gram/118 mL enema (Fleet Enema) Previous Rx's Medication Instructions Recorded lisinopril 10 1 tab PO QAM #90 tabs 06/12/19 mg-hydrochlorothiazide 12.5 mg tablet metoprolol succinate 25 mg 25 mg PO DAILY #90 tabs 12/11/19 tablet,extended release 24 hr montelukast 5 mg chewable tablet 5 mg PO DAILY #90 tabs 12/28/20 (Singulair) simvastatin 10 mg tablet 10 mg PO QPM #90 tabs 03/04/20 docusate sodium 100 mg capsule 100 mg PO BID #60 caps 04/03/20 Results & Data (ED) Vital Signs Vital Signs - 24 hr 01/23/25 11:00 01/23/25 12:12 01/23/25 13:54 Temperature 36.4 C L Temperature Source Oral Pulse Rate 81 78 Pulse Rate [Apical] 74 Pulse Rhythm [Apical] Regular Pulse Strength [Apical] Normal Respiratory Rate 22 16 Respiratory Effort / Characteristics Non-Labored Spontaneous Non-Labored Spontaneous Respiratory Depth Normal Normal Blood Pressure 185/96 H Blood Pressure [Right Arm] 165/89 H Blood Pressure Mean 125 Blood Pressure Mean [Right Arm] 114 Blood Pressure Position Lying Pulse Oximetry 95 95 Oxygen Delivery Method Nasal Cannula Room Air Oxygen Flow Rate 2 Sepsis Recent Fever Within 48 Hours No Sepsis New/Unexplained Change in Mental Status No Sepsis Action Taken by Nursing No Action Required Laboratory Data 01/25/25 05:37 01/25/25 05:37 Lab Results 01/23/25 01/23/25 Range/Units 11:45 12:50 WBC 8.91 (4.8-10.8) K/ul RBC 4.18 L (4.20-5.40) M/uL Hgb 12.3 (12.0-16.0) g/dL Hct 35.9 L (37.0-47.0) % MCV 85.9 (80.0-100.0) fL MCH 29.4 (25.0-34.0) pg MCHC 34.3 (32.0-36.0) g/dL RDW Std Deviation 40.5 (36.4-46.3) fL RDW Coeff of Marielos 13.1 (11.5-14.5) % Plt Count 168 (130-400) K/uL MPV 10.9 (9.4-12.4) fL Immature Gran % (Auto) 0.9 % Neut % (Auto) 82.9 % Lymph % (Auto) 9.2 % [place] % (Auto) 5.3 % Eos % (Auto) 1.3 % Baso % (Auto) 0.4 % Neut # (Auto) 7.38 H (1.40-6.50) K/uL Lymph # (Auto) 0.82 L (1.20-3.40) K/uL [place] # (Auto) 0.47 (0.11-0.59) K/uL Eos # (Auto) 0.12 (0.00-0.50) K/uL Baso # (Auto) 0.04 (0.00-0.20) K/uL Immature Gran # (Auto) 0.08 (0.01-0.20) K/uL Sodium 138 (136-145) mmol/L Potassium 3.4 L (3.5-5.1) mmol/L Chloride 104 (98-107) mmol/L Carbon Dioxide 25 (21-32) mmol/L Anion Gap 9 (3-11) BUN 21 (6-23) mg/dl Creatinine 0.75 (0.6-1.2) mg/dl Est Cr Clr Drug Dosing 47.6 ml/min eGFR 77.01 BUN/Creatinine Ratio 28.0 H (10-20) Glucose 138 H (70-99(Fasting)) mg/dl Calcium 9.8 (8.6-10.3) mg/dl Total Bilirubin 0.7 (0.2-1.0) mg/dl AST 16 (13-39) U/L ALT 8 (7-52) U/L Alkaline Phosphatase 59 (34-104) U/L Troponin I High Sens 13.5 (0-14) pg/ml Total Protein 7.3 (6.0-8.3) gm/dl Albumin 4.4 (3.4-5.0) gm/dl Globulin 2.9 (2.5-4.0) gm/dl Albumin/Globulin Ratio 1.5 (0.9-2) Adenovirus (PCR) Not Detected (NotDetected) B. pertussis DNA (PCR) Not Detected (NotDetected) B.parapertussis DNA PCR Not Detected (NotDetected) C. pneumoniae DNA (PCR) Not Detected (NotDetected) Coronavirus OC43 (PCR) Not Detected (NotDetected) Coronavirus HKU1 (PCR) Not Detected (NotDetected) Coronavirus 229E (PCR) Not Detected (NotDetected) SARS-CoV-2 (PCR) Not Detected (NotDetected) Coronavirus NL63 (PCR) Not Detected (NotDetected) Human Metapneumovir PCR Not Detected (NotDetected) Influenza Type A (PCR) Not Detected (NotDetected) Influenza Type B (PCR) Not Detected (NotDetected) M. pneumoniae (PCR) Not Detected (NotDetected) Parainfluenza 1 (PCR) Not Detected (NotDetected) Parainfluenza 2 (PCR) Not Detected (NotDetected) Parainfluenza 3 (PCR) Not Detected (NotDetected) Parainfluenza 4 (PCR) Not Detected (NotDetected) RSV (PCR) Not Detected (NotDetected) Entero/Rhino (PCR) Not Detected (NotDetected) Administered Medications Acetaminophen (Acetaminophen 500 Mg Tab) 1,000 mg PO Q8H [facility] Stop: 02/22/25 19:59 Last Admin: 01/25/25 06:09 Dose: 1,000 mg Documented By: ezio Admin: 01/24/25 20:37 Dose: 1,000 mg Documented By: ezio Admin: 01/24/25 16:48 Dose: Not Given Documented By: Admin: 01/24/25 04:18 Dose: Not Given Documented By: ezio Admin: 01/23/25 20:13 Dose: 1,000 mg Documented By: ezio Ascorbic Acid (Ascorbic Acid 500 Mg Tab) 500 mg PO BIDM [facility] Stop: 02/23/25 16:59 Last Admin: 01/25/25 08:40 Dose: Not Given Documented By: Admin: 01/24/25 17:42 Dose: Not Given Documented By: POP Aspirin (Aspirin 81 Mg Ectab) 81 mg PO BID GIANCARLO Stop: 02/23/25 20:59 Last Admin: 01/24/25 20:38 Dose: Not Given Documented By: ezio Azelastine HCl (Azelastine Hcl 0.1% Nasal 200 Sprays/27,400 Mcg Btl) 1 sprays NA BID GIANCARLO Stop: 02/22/25 20:59 Last Admin: 01/25/25 08:16 Dose: 1 sprays Documented By: Admin: 01/24/25 20:42 Dose: Not Given Documented By: ezio Admin: 01/24/25 08:42 Dose: 1 sprays Documented By: Admin: 01/23/25 20:12 Dose: 1 sprays Documented By: ezio Buspirone HCl (Buspirone 7.5 Mg Tab) 15 mg PO TID [facility] Stop: 02/22/25 20:59 Last Admin: 01/25/25 08:15 Dose: 15 mg Documented By: Admin: 01/24/25 20:38 Dose: 15 mg Documented By: ezio Admin: 01/24/25 17:42 Dose: Not Given Documented By: Admin: 01/24/25 08:42 Dose: 15 mg Documented By: Admin: 01/23/25 20:12 Dose: 15 mg Documented By: ezio Clonazepam (Clonazepam 0.5 Mg Tab) 0.5 mg PO QAM [facility] Stop: 02/23/25 08:59 Last Admin: 01/25/25 08:16 Dose: 0.5 mg Documented By: Admin: 01/24/25 08:42 Dose: Not Given Documented By: POP Cyanocobalamin (Cyanocobalamin (B-12) 500 Mcg Tablet) 500 mcg PO QAM [facility] Stop: 02/23/25 08:59 Last Admin: 01/25/25 08:43 Dose: Not Given Documented By: Admin: 01/24/25 08:35 Dose: Not Given Documented By: POP Docusate Sodium (Docusate Sodium 100 Mg Cap) 100 mg PO BID [facility] Stop: 02/23/25 20:59 Last Admin: 01/25/25 08:07 Dose: Not Given Documented By: Admin: 01/24/25 20:37 Dose: 100 mg Documented By: ezio Donepezil HCl (Donepezil Hcl 10 Mg Tab) 10 mg PO QAM [facility] Stop: 02/23/25 08:59 Last Admin: 01/25/25 08:16 Dose: 10 mg Documented By: Admin: 01/24/25 08:35 Dose: Not Given Documented By: POP Ferrous Gluconate (Ferrous Gluconate 324 Mg Tab) 324 mg PO BIDM [facility] Stop: 02/23/25 16:59 Last Admin: 01/25/25 08:40 Dose: Not Given Documented By: Admin: 01/24/25 17:42 Dose: Not Given Documented By: POP Fluoxetine HCl (Fluoxetine Hcl 20 Mg Cap) 20 mg PO QAM [facility] Stop: 02/23/25 08:59 Last Admin: 01/25/25 08:16 Dose: 20 mg Documented By: Admin: 01/24/25 08:35 Dose: Not Given Documented By: RRAlejandro Lisinopril/HCTZ (Lisinopril/Hctz 10/12.5mg Tab) 1 tab PO QAM [facility] Stop: 02/23/25 08:59 Last Admin: 01/25/25 08:15 Dose: 1 tab Documented By: Admin: 01/24/25 08:41 Dose: 1 tab Documented By: RRAlejandro Hydralazine HCl (Hydralazine Hcl 20 Mg/Ml Vial) 10 mg IV Q8H PRN PRN Reason: SBP >185, DBP >95 Stop: 02/23/25 11:22 Last Admin: 01/24/25 18:43 Dose: 10 mg Documented By: POP Magnesium Oxide (Magnesium Oxide 400 Mg Tab) [facility] [place] Stop: 02/23/25 08:59 Last Admin: 01/25/25 08:43 Dose: Not Given Documented By: Admin: 01/24/25 08:42 Dose: Not Given Documented By: POP Montelukast Sodium (Montelukast Sodium 10 Mg Tablet) [facility] [place] Stop: 02/23/25 08:59 Last Admin: 01/25/25 08:17 Dose: 5 mg Documented By: Admin: 01/24/25 08:35 Dose: Not Given Documented By: RRAlejandro Multivitamins (Multivitamin Tab) [facility] [place] Stop: 02/24/25 08:59 Last Admin: 01/25/25 08:43 Dose: Not Given Documented By: ROMEO Ondansetron HCl (Ondansetron Inj 2 Mg/Ml 2 Ml Vial) 4 mg IV Q6H PRN PRN Reason: Nausea Stop: 02/22/25 16:36 Last Admin: 01/25/25 06:12 Dose: 4 mg Documented By: ezio Paroxetine HCl (Paroxetine Hcl 10 Mg Tab) 10 mg PO DAILY [facility] Stop: 02/23/25 08:59 Last Admin: 01/25/25 08:16 Dose: 10 mg Documented By: Admin: 01/24/25 08:42 Dose: 10 mg Documented By: POP Propranolol HCl (Propranolol Hcl 10 Mg Tab) 10 mg PO BID GIANCARLO Stop: 02/22/25 20:59 Last Admin: 01/25/25 08:15 Dose: 10 mg Documented By: Admin: 01/24/25 20:38 Dose: 10 mg Documented By: ezio Admin: 01/24/25 07:27 Dose: 10 mg Documented By: Admin: 01/23/25 20:12 Dose: 10 mg Documented By: ezio Sennosides (Senna 8.6 Mg Tab) 17.2 mg PO HS GIANCARLO Stop: 02/23/25 20:59 Last Admin: 01/24/25 20:38 Dose: 17.2 mg Documented By: ezio Trazodone HCl (Trazodone Hcl 50 Mg Tab) 50 mg PO [facility]ANCARLO Stop: 02/22/25 20:59 Last Admin: 01/24/25 20:38 Dose: 50 mg Documented By: ezio Admin: 01/23/25 20:12 Dose: 50 mg Documented By: ezio Vitamin D (Cholecalciferol 25 Mcg (1000 Units) Tab) 25 mcg PO QAM [facility]ARLO Stop: 02/23/25 09:29 Last Admin: 01/25/25 08:40 Dose: Not Given Documented By: Admin: 01/24/25 11:01 Dose: Not Given Documented By: POP Discontinued Medications Cefazolin Sodium (Cefazolin 2,000 Mg/15 Ml Iv Push) Confirm Administered Dose 2,000 mg IV .STK-MED ONE Stop: 01/24/25 12:34 Last Admin: 01/24/25 14:41 Dose: Not Given Documented By: NONI Acetaminophen (Ofirmev) 1,000 mg in 100 mls @ 400 mls/hr IV NOW STA Stop: 01/23/25 11:42 Last Infusion: 01/23/25 12:03 Dose: Infused Documented By: Admin: 01/23/25 11:46 Dose: 400 mls/hr Documented By: CLAY Cefazolin Sodium (Ancef 2000mg) 2,000 mg in 15 mls @ 3.75 mls/min IV PREOP ONE; Protocol Stop: 01/24/25 06:03 Last Admin: 01/24/25 14:00 Dose: 3.75 mls/min Documented By: MARY JO Tranexamic Acid (Tranexamic Acid / 0.7% Nacl) 1,000 mg in 100 mls @ 600 mls/hr IV PREOP ONE Stop: 01/24/25 06:09 Last Infusion: 01/24/25 16:48 Dose: Infused Documented By: Admin: 01/24/25 15:08 Dose: 600 mls/hr Documented By: MARY JO Vancomycin HCl 1,000 mg/ (Sodium Chloride) 270 mls @ 200 mls/hr IV ONCE ONE Stop: 01/24/25 12:01 Last Infusion: 01/24/25 13:40 Dose: Infused Documented By: BJRubi Admin: 01/24/25 12:19 Dose: 200 mls/hr Documented By: ELIE Lactated Ringer's (Lr) 1,000 mls @ 15 mls/hr IV .Q24H [facility] Stop: 01/27/25 12:29 Last Infusion: 01/24/25 13:58 Dose: Infused Documented By: Admin: 01/24/25 12:34 Dose: 15 mls/hr Documented By: ELIE Ropivacaine 246 mg/ Ketorolac Tromethamine 30 mg/Epinephrine HCl 0.5 mg/ Sodium Chloride 100.7 mls @ 0 mls/hr INFIL TODAY@0600 [facility]; Protocol Stop: 01/24/25 21:00 Last Admin: 01/24/25 14:41 Dose: 100 mls/hr Documented By: David Sodium Chloride (Nss) 1,000 mls @ 100 mls/hr IV .Q10H [facility] Stop: 01/25/25 06:00 Last Infusion: 01/25/25 05:46 Dose: Infused Documented By: ezio Admin: 01/25/25 03:56 Dose: 100 mls/hr Documented By: Infusion: 01/25/25 02:53 Dose: Infused Documented By: Admin: 01/24/25 16:53 Dose: 100 mls/hr Documented By: POP Cefazolin Sodium (Ancef 2000mg) 2,000 mg in 15 mls @ 3.75 mls/min IV Q8H [facility]; Protocol Stop: 01/25/25 06:03 Last Admin: 01/25/25 05:34 Dose: 3.75 mls/min Documented By: ezio Admin: 01/24/25 22:49 Dose: 3.75 mls/min Documented By: ezio Dexamethasone 10 mg/ Syringe 2.5 mls @ 1 mls/min IV TODAY@08 [facility]ARLO Stop: 01/25/25 08:03 Last Admin: 01/25/25 08:15 Dose: 1 mls/min Documented By: ROMEO Vancomycin HCl 1,000 mg/ (Sodium Chloride) 270 mls @ 200 mls/hr IV Q12H [facility] Stop: 01/25/25 03:20 Last Infusion: 01/25/25 02:48 Dose: Infused Documented By: ezio Admin: 01/25/25 01:23 Dose: 200 mls/hr Documented By: zeio Ioversol (Optiray 320 125ml) 119 ml IV ONCE ONE Stop: 01/23/25 12:37 Last Admin: 01/23/25 12:37 Dose: 119 ml Documented By: [facility] ([facility]est[facility] ) Confirm Administered Dose 1 each .ROUTE .STK-MED ONE Stop: 01/24/25 13:49 Last Admin: 01/24/25 16:48 Dose: Not Given Documented By: POP Potassium Chloride (Potassium Chloride Crtab 20 Meq Tabcr) 20 meq PO NOW STA Stop: 01/23/25 16:49 Last Admin: 01/23/25 16:56 Dose: 20 meq Documented By: RRAlejandro Tranexamic Acid (Tranexamic Acid / 0.7% Nacl 1000mg/100ml Bag) Confirm Administered Dose 1,000 mg IV .STK-MED ONE Stop: 01/24/25 12:25 Last Admin: 01/24/25 14:41 Dose: Not Given Documented By: BS Tranexamic Acid (Tranexamic Acid / 0.7% Nacl 1000mg/100ml Bag) Confirm Administered Dose 1,000 mg IV .STK-MED ONE Stop: 01/24/25 15:07 Last Admin: 01/24/25 16:48 Dose: Not Given Documented By: POP Imaging Data Radiologist's Impression: Abdomen/Pelvis CT 01/23/25 11:26 CT angio chest PE protocol, CT abd pelvis IV con only HISTORY: 89 years-old Female with PE. CT chest abdominal pain status post fall TECHNIQUE: Multiple CTA images of the chest were obtained after the intravenous administration of 119 ml Optiray. Coronal and sagittal MIPS were obtained from the axial data set and were submitted for review. All measurements were obtained according to NASCET criteria. CT abdomen and pelvis with IV contrast only also obtained. A dose lowering technique was utilized adhering to the principles of ALARA. COMPARISON: Chest CT 08/30/2019, CT abdomen and pelvis 07/12/2015 and also March 27, 2020, radiograph of the pelvis and left hip with same day FINDINGS: CTA: Moderate cardiomegaly without pericardial effusion. Moderate coronary artery calcifications. Atherosclerosis of the aorta without aneurysm. Patency of the imaged great vessels. No pulmonary emboli are seen. CT CHEST: Multinodular thyroid with largest conglomerate nodule in the left measuring up to 5.4 cm, previously 4 cm. Partially calcified mediastinal and right hilar lymphadenopathy again noted compatible with prior granulomatous disease. No pneumothorax, pleural effusion or overt pulmonary edema. There are a few scattered benign calcified pulmonary granulomata are noted. Mild dependent subsegmental bibasilar atelectasis. No suspicious pulmonary nodules or masses. Central airways are patent. Unremarkable soft tissues. Degenerative changes of the spine and shoulders. No acute fracture identified. Scattered vertebral body hemangiomata noted within the thoracic spine. Mild chronic wedge deformity at T10. Mild 20% T7 compression deformity is new from prior without retropulsion CT ABDOMEN/PELVIS: Calcified granulomata of the liver and spleen. No pneumatosis or pneumoperitoneum. Unremarkable pancreas, adrenal glands, and gallbladder. Patency of the hepatic and portal veins. 11 mm peripherally calcified splenic artery aneurysm is unchanged. Mild cortical thinning of the kidneys without hydronephrosis. Atherosclerosis of the aorta without aneurysm. No lymphadenopathy. Duodenal diverticulum. Colonic diverticulosis without acute diverticulitis. No bowel obstruction or bowel wall thickening. Demineralized appearance to the bones. There is an acute, comminuted, impacted, angulated and mildly displaced fracture involving the mid aspect of the left femoral neck. Mild to moderate osteoarthritis of the hips. Deep tissue edema/hemorrhage surrounds the acute left hip fracture. No additional acute fracture identified. IMPRESSION: 1. Acute, mildly comminuted, impacted, angulated and displaced transcervical left femoral fracture. 2. No acute posttraumatic intrathoracic, intra-abdominal or intrapelvic abnormality identified. 3. Chronic T10 compression deformity with mild age-indeterminate T7 compression deformity which is new from 2019, also likely subacute or chronic. 4. Thyroid goiter. 5. Incidental findings as above. ACT 112: Negative or not required by law. The above report was generated using voice recognition software. It may contain grammatical, syntax or spelling errors. Electronically signed by: Clinton Larkin M.D. 01/23/2025 12:59 PM Chest CTA 01/23/25 11:26 CT angio chest PE protocol, CT abd pelvis IV con only HISTORY: 89 years-old Female with PE. CT chest abdominal pain status post fall TECHNIQUE: Multiple CTA images of the chest were obtained after the intravenous administration of 119 ml Optiray. Coronal and sagittal MIPS were obtained from the axial data set and were submitted for review. All measurements were obtained according to NASCET criteria. CT abdomen and pelvis with IV contrast only also obtained. A dose lowering technique was utilized adhering to the principles of ALARA. COMPARISON: Chest CT 08/30/2019, CT abdomen and pelvis 07/12/2015 and also March 27, 2020, radiograph of the pelvis and left hip with same day FINDINGS: CTA: Moderate cardiomegaly without pericardial effusion. Moderate coronary artery calcifications. Atherosclerosis of the aorta without aneurysm. Patency of the imaged great vessels. No pulmonary emboli are seen. CT CHEST: Multinodular thyroid with largest conglomerate nodule in the left measuring up to 5.4 cm, previously 4 cm. Partially calcified mediastinal and right hilar lymphadenopathy again noted compatible with prior granulomatous disease. No pneumothorax, pleural effusion or overt pulmonary edema. There are a few scattered benign calcified pulmonary granulomata are noted. Mild dependent subsegmental bibasilar atelectasis. No suspicious pulmonary nodules or masses. Central airways are patent. Unremarkable soft tissues. Degenerative changes of the spine and shoulders. No acute fracture identified. Scattered vertebral body hemangiomata noted within the thoracic spine. Mild chronic wedge deformity at T10. Mild 20% T7 compression deformity is new from prior without retropulsion CT ABDOMEN/PELVIS: Calcified granulomata of the liver and spleen. No pneumatosis or pneumoperitoneum. Unremarkable pancreas, adrenal glands, and gallbladder. Patency of the hepatic and portal veins. 11 mm peripherally calcified splenic artery aneurysm is unchanged. Mild cortical thinning of the kidneys without hydronephrosis. Atherosclerosis of the aorta without aneurysm. No lymphadenopathy. Duodenal diverticulum. Colonic diverticulosis without acute diverticulitis. No bowel obstruction or bowel wall thickening. Demineralized appearance to the bones. There is an acute, comminuted, impacted, angulated and mildly displaced fracture involving the mid aspect of the left femoral neck. Mild to moderate osteoarthritis of the hips. Deep tissue edema/hemorrhage surrounds the acute left hip fracture. No additional acute fracture identified. IMPRESSION: 1. Acute, mildly comminuted, impacted, angulated and displaced transcervical left femoral fracture. 2. No acute posttraumatic intrathoracic, intra-abdominal or intrapelvic abnormality identified. 3. Chronic T10 compression deformity with mild age-indeterminate T7 compression deformity which is new from 2019, also likely subacute or chronic. 4. Thyroid goiter. 5. Incidental findings as above. ACT 112: Negative or not required by law. The above report was generated using voice recognition software. It may contain grammatical, syntax or spelling errors. Electronically signed by: Clinton Larkin M.D. 01/23/2025 12:59 PM Hip/Pelvis X-Ray 01/23/25 11:26 XR hip LT 2V w pelvis CLINICAL HISTORY: fall, left hip pain COMPARISON: 10/01/2014 FINDINGS: There is an acute mildly displaced fracture at the left femoral neck with mild proximal migration of the distal fragment. No other fracture or dislocation seen at the pelvis or hips. IMPRESSION: Acute fracture left femoral neck. ACT 112: Negative or not required by law. Electronically signed by: Jimmy Drake M.D. 01/23/2025 12:47 PM Chest X-Ray 01/23/25 11:31 XR chest 1V portable HISTORY: 89 years-old Female fall, SOB acute shortness breath with chest pain COMPARISON: CTA chest of same day, chest radiograph 03/27/2020 TECHNIQUE: AP view of the chest FINDINGS: Cardiac silhouette is enlarged. Mild right hemidiaphragmatic elevation. Chronic interstitial coarsening without pneumothorax, pleural effusion or overt pulmonary edema. The bones of the chest appear grossly intact. IMPRESSION: Cardiomegaly without acute process. ACT 112: Negative or not required by law. The above report was generated using voice recognition software. It may contain grammatical, syntax or spelling errors. Electronically signed by: Clinton Larkin M.D. 01/23/2025 2:19 PM Discharge Plan Visit Data Chief Complaint: Fall Stated Complaint: FALL, HIP & PELVIS PAIN ED Provider: Kelvin Santoyo ED Midlevel Provider: Cassie Chao Discharge Problem: Hypoxic, Ground-level fall, Displaced fracture of left femoral neck Patient Disposition: Admitted As Inpatient Condition: Good Discharge Instructions Interventions: ED Discharge Assessment Last Done: 01/23/25 15:56
[2025-01-23] MEDS: ACETAMINOPHEN 1,000 MG/100 ML VIAL IV STA (11:46)
[2025-01-23 12:02] LABS: Hematocrit (blood only) 35.9 % (37.0-47.0); Hemoglobin 12.3 g/dL (12.0-16.0); Immature Granulocytes # (auto) 0.08 K/uL (0.01-0.20); Immature Granulocytes % (auto) 0.9 %; Mean Corpuscular Hemoglobin 29.4 pg (25.0-34.0); Mean Corpuscular Volume 85.9 fL (80.0-100.0); Platelet Count 168 K/uL (130-400); RDW Standard Deviation 40.5 fL (36.4-46.3); Red Blood Count 4.18 M/uL (4.20-5.40); White Blood Count 8.91 K/ul (4.8-10.8)
[2025-01-23 12:17] LABS: Alanine Aminotransferase 8.0 U/L (7-52); Albumin Globulin Ratio 1.5 (0.9-2); Albumin Level 4.4 gm/dl (3.4-5.0); Alkaline Phosphatase 59.0 U/L (34-104); Bilirubin,Total 0.7 mg/dl (0.2-1.0); Blood Urea Nitrogen 21.0 mg/dl (6-23); Calcium 9.8 mg/dl (8.6-10.3); Carbon Dioxide 25.0 mmol/L (21-32); Creatinine Clr Calc Pharmacy 47.6 ml/min; Globulin 2.9 gm/dl (2.5-4.0); Glucose 138.0 mg/dl (70-99(Fasting)); Total Protein 7.3 gm/dl (6.0-8.3)
[2025-01-23] MEDS: OPTIRAY 320 125ml IV ONE (12:37)
--- NOTE | 2025-01-23 12:48 | XRay Report ---
XR hip LT 2V w pelvis CLINICAL HISTORY: fall, left hip pain COMPARISON: 10/01/2014 FINDINGS: There is an acute mildly displaced fracture at the left femoral neck with mild proximal mi gration of the distal fragment. No other fracture or dislocation seen at the pelvis or hips. IMPRESSION: Acute fracture left femoral neck. ACT 112: Negative or not required by law. Electronically signed by: Jimmy Drake M.D. 01/23/2025 12:47 PM
--- NOTE | 2025-01-23 13:01 | CT Scan Report ---
CT angio chest PE protocol, CT abd pelvis IV con only HISTORY: 89 years-old Female with PE. CT chest abdominal pain status post fall TECHNIQUE: Multiple CTA images of the chest were obtained after the intravenous administration of 119 ml Optiray. Coronal and sagittal MIPS were obtained from the axial data set and were submitted for review. All measurements were obtained according to NASCET criteria. CT abdomen and pelvis with IV c ontrast only also obtained. A dose lowering technique was utilized adhering to the principles of [place]. COMPARISON: Chest CT 08/30/2019, CT abdomen and pelvis 07/12/2015 and also March 27, 2020, radiograph of the pelvis and left hip with same day FINDINGS: CTA: Moderate cardiomegaly without pericardial effusion. Moderate coronary artery calcifications. Atherosc lerosis of the aorta without aneurysm. Patency of the imaged great vessels. No pulmonary emboli are s een. CT CHEST: Multinodular thyroid with largest conglomerate nodule in the left measuring up to 5.4 cm, previously 4 cm. Partially calcified mediastinal and right hilar lymphadenopathy again noted compatible with lokesh or granulomatous disease. No pneumothorax, pleural effusion or overt pulmonary edema. There are a few scattered benign calcified pulmonary granulomata are noted. Mild dependent subsegmental bibasilar at electasis. No suspicious pulmonary nodules or masses. Central airways are patent. Unremarkable soft t issues. Degenerative changes of the spine and shoulders. No acute fracture identified. Scattered vert ebral body hemangiomata noted within the thoracic spine. Mild chronic wedge deformity at T10. Mild 20 % T7 compression deformity is new from prior without retropulsion CT ABDOMEN/PELVIS: Calcified granulomata of the liver and spleen. No pneumatosis or pneumoperitoneum. Unremarkable pancr eas, adrenal glands, and gallbladder. Patency of the hepatic and portal veins. 11 mm peripherally liliam cified splenic artery aneurysm is unchanged. Mild cortical thinning of the kidneys without hydronephr osis. Atherosclerosis of the aorta without aneurysm. No lymphadenopathy. Duodenal diverticulum. Colonic diverticulosis without acute diverticulitis. No bowel obstruction or b owel wall thickening. Demineralized appearance to the bones. There is an acute, comminuted, impacted, angulated and mildly displaced fracture involving the mid aspect of the left femoral neck. Mild to m oderate osteoarthritis of the hips. Deep tissue edema/hemorrhage surrounds the acute left hip fractur e. No additional acute fracture identified. IMPRESSION: 1. Acute, mildly comminuted, impacted, angulated and displaced transcervical left femoral fracture. 2. No acute posttraumatic intrathoracic, intra-abdominal or intrapelvic abnormality identified. 3. Chronic T10 compression deformity with mild age-indeterminate T7 compression deformity which is ne w from 2020, also likely subacute or chronic. 4. Thyroid goiter. 5. Incidental findings as above. ACT 112: Negative or not required by law. The above report was generated using voice recognition software. It may contain grammatical, syntax o r spelling errors. Electronically signed by: Clinton Larkin M.D. 01/23/2025 12:59 PM
[2025-01-23 13:13] LABS: Anion Gap 9.0 (3-11); Chloride 104.0 mmol/L (98-107); Potassium 3.4 mmol/L (3.5-5.1); Sodium 138.0 mmol/L (136-145)
[2025-01-23 14:00] LABS: Chlamydia pneumoniae PCR Not Detected (NotDetected); Coronavirus 229E PCR Not Detected (NotDetected); Coronavirus CoV-2 (COVID19)PCR Not Detected (NotDetected); Coronavirus HKU1 PCR Not Detected (NotDetected); Coronavirus NL63 PCR Not Detected (NotDetected); Coronavirus OC43PCR Not Detected (NotDetected); Human Metapneumovirus PCR Not Detected (NotDetected); Parainfluenza Virus 1 PCR Not Detected (NotDetected); Parainfluenza Virus 2 PCR Not Detected (NotDetected); Parainfluenza Virus 3 PCR Not Detected (NotDetected); Parainfluenza Virus 4 PCR Not Detected (NotDetected); Respiratory Syncytial VirusPCR Not Detected (NotDetected); Rhinovirus/Enterovirus PCR Not Detected (NotDetected)
--- NOTE | 2025-01-23 14:00 | History & Physical Report ---
"<Statement entered by Annalise Brown MD - 01/23/25 17:59> Ilda is an 89-year-old with hypertension and dementia who is a resident of [facility]. She fell 2 days ago it was a mechanical fall when she got up out of bed to walk she had ongoing left hip pain and was unable to bear weight so she was brought in by EMS to the ED emergency department. She was found to have a left hip fracture currently she does have pain in her left hip no chest pain no shortness of breath she denies any cardiac problems note that she has a very poor historian on exam she is awake alert oriented to basics of the situation and that she is in a hospital and she has a hip fracture otherwise forgetful and very vague. Face is symmetric lungs are clear to auscultation bilaterally no rhonchi rales or wheezes heart is regular hyperdynamic there are no murmurs rubs or gallops abdomen soft and nondistended left lower extremity without obvious deformity her foot is warm and well-perfused with palpable DP pulse for her hip fracture we have consulted orthopedic surgery they will perform left hip hemiarthroplasty tomorrow. There are no medical contraindications to p roceeding with urgent surgery as planned. I obtained and personally reviewed her EKG tracing which shows normal sinus rhythm some nonspecific ST changes specially in leads III and V1 through V3. There is no evidence of an acute coronary syndrome or heart failure on her exam or by history Her testing thus far. I am not sure why she has mild hypoxia potentially it is atelectasis. She does not appear volume overloaded on exam there is no PE and there are no infiltrates on her chest CTA. no evidence of an infectious process. Plan to continue supplemental oxygen as needed incentive spirometry, mobility when appropriate Date of Service January 23, 2025 Assessment & Plan (1) Displaced fracture of left femoral neck: (2) Ground-level fall: Huy Wells is a pleasant 89-year-old woman with past medical history of hypertension, hyperlipidemia, GERD, anxiety, depression, mood disorder cerebral atherosclerosis, fibromyalgia, bilateral sensorineural hearing loss, dementia, asthma, stress incontinence, insomnia, and vitamin D deficiency. She presented to the ED after sustaining a mechanical ground-level fall 2 days prior to admission. No head strike or LOC. No blood thinners. Workup in ED revealed acute mildly comminuted, impacted, angulated, and displaced transcervical left femoral fracture. No acute posttraumatic intrathoracic, intra-abdominal, or intrapelvic abnormalities identified. Chronic T10 compression deformity and age-indeterminate T7 compression deformity that is likely subacute or chronic. She was admitted for management of her left femoral neck fracture. #Left femoral neck fracture | Mechanical ground level fall - May placed in ED on arrival - Orthopedic surgery consulted - scheduled for left hip cemented hemiarthroplasty tomorrow 01/[address] Clark - Fall precautions. NWB to LLE for now - Pain regimen: Scheduled Tylenol 1,000 mg Q8H, morphine 2-4 mg Q3h PRN mod- severe pain - NPO at midnight 01/24 - CBC, BMP, Vit D with AM labs - Defer PT/OT consults until postop #Hypoxia - patient does not wear supplemental O2 at baseline, but needed 2 L NC on arrival to maintain O2 sat - Respiratory BioFire negative. CXR unremarkable. Asymptomatic - Incentive spirometer Q1HWA - Supplemental O2 PRN to maintain O2 sat >90% #Hypokalemia - Mild, K 3.4 on arrival - Repleted with KCl 20 mEq PO x 1 - Continue home Mag-Ox 400 mg daily - Trend with AM labs #Hypertension | Hyperlipidemiacontinue lisinoprilHCTZ 10-12.5 mg daily #Asthmacontinue Singulair 5 mcg daily #Vitamin B12 deficiencycontinue cyanocobalamin 500 mg daily #Depression/anxiety | Dementia | Mood disorder continue buspirone 15 mg TID, paroxetine 10 mg daily, trazodone 50 mg HS, propranolol 10 mg BID, clonazepam 0.25 mg daily, fluoxetine 20 mg daily, #Dementiacontinue donepezil 10 mg daily #Chronic rhinitiscontinue azelastine nasal spray 1 spray in each nostril BID VTE PPx: Lovenox Dispo: Admit to med/surg Reviewed prior medical records Updated family members at bedside on admission History of Present Illness Chief Complaint: Fall, hip pain Primary Care Provider: Mony Wells is a pleasant 89-year-old woman with past medical history of hypertension, hyperlipidemia, GERD, anxiety, cerebral atherosclerosis, fibromyalgia, bilateral sensorineural hearing loss, dementia, asthma, stress incontinence, insomnia, and vitamin D deficiency. She presented from [place] [facility] with left hip pain. At the time of my exam, the patient was lying in bed in no acute distress with her family present at bedside. History is obtained from both patient, family members, and ED provider as patient has baseline dementia. 2 days prior to presentation, patient sustained a ground-level mechanical fall. There was no head strike or loss of consciousness. She does not take blood thinners. Priscilla reports she got out of bed in the middle of the night and tripped, resulting in a fall. She denies any lightheadedness or dizziness prior to her fall. For the past 2 days, she has not bared weight on her left lower extremity secondary to pain. She reports a constant aching pain in her left hip/groin that radiates down her left leg. She denies any paresthesias. Additionally on initial presentation, she was placed on supplemental O2 at 2 L NC. She does not require supplemental oxygen at baseline. She denies dyspnea, cough, sinus congestion, headache, sore throat. She denies recent sick contacts. Vitals on admission significant for elevated BP at 165/89 and supplemental O2 at 2 L NC; vitals otherwise stable. Labs on admission are overall unremarkable. CBC without leukocytosis, stable H&H and platelets. Mild hypokalemia with potassium 3.4. Other electrolytes WNL. Renal function WNL. Liver enzymes WNL. Troponin WNL at 13.5. Respiratory bio fire negative. CT A/P on admission reveals acute, mildly comminuted, impacted, angulated and displaced transcervical left femoral fracture. No acute posttraumatic intrathoracic, intra-abdominal or intrapelvic abnormality identified. Chronic T10 compression deformity with mild age indeterminant T7 compression deformity likely subacute or chronic. Left hip/pelvis x-ray reveals acute fracture of left femoral neck. CXR notes cardiomegaly without acute process. Chest CTA unremarkable. We discussed code status, patient wishes to be a full code. Her living will outlines a DNR/DNI code status per report of her niece at bedside, however Priscilla is clear that she would like to be a full code at this time. Allergies Allergy/AdvReac Type Severity Reaction Status Date / Time Penicillins Allergy Intermediate HIVES Verified 01/21/21 09:39 Sulfa (Sulfonamide Allergy Intermediate Hives Verified 01/21/21 09:39 Antibiotics) adhesive Allergy Mild redness Verified 01/21/21 09:39 aspirin Allergy Unknown Unknown Verified 01/21/21 09:39 atorvastatin Allergy Unknown unknown Verified 01/21/21 09:39 Cipro Allergy Unknown ? Unverified 06/22/15 15:06 ciprofloxacin Allergy Unknown Unknown Verified 01/21/21 09:39 clindamycin Allergy Unknown Unknown Verified 01/21/21 09:39 erythromycin base Allergy Unknown Unknown Verified 01/21/21 09:39 escitalopram Allergy Unknown Unknown Verified 01/21/21 09:39 etodolac Allergy Unknown Unknown Verified 01/21/21 09:39 meloxicam Allergy Unknown unknown Verified 01/21/21 09:39 metronidazole Allergy Unknown Unknown Verified 01/21/21 09:39 naloxone [From Talwin NX] Allergy Unknown Unknown Verified 01/21/21 09:39 omeprazole Allergy Unknown Unknown Verified 01/21/21 09:39 pentazocine Allergy Unknown Unknown Verified 01/21/21 09:39 polyethylene glycol 400 Allergy Unknown Unknown Verified 01/21/21 09:39 [From Systane (propylene glycol)] propylene glycol Allergy Unknown Unknown Verified 01/21/21 09:39 [From Systane (propylene glycol)] pseudoephedrine Allergy Unknown Unknown Verified 01/21/21 09:39 temazepam Allergy Unknown Unknown Verified 01/21/21 09:39 tramadol Allergy Unknown Unknown Verified 01/21/21 09:39 fluvoxamine AdvReac Mild GI SYMPTOMS Verified 01/21/21 09:39 gabapentin AdvReac Mild gi symptoms Verified 01/21/21 09:39 hydralazine AdvReac Mild gi symptoms Verified 01/21/21 09:39 meclizine AdvReac Mild nausea/ Verified 01/21/21 09:39 vomiting prednisone AdvReac Mild thrush Verified 01/21/21 09:39 promethazine AdvReac Mild gi symptoms Verified 01/21/21 09:39 quetiapine AdvReac Mild gi symptoms Verified 01/21/21 09:39 risperidone AdvReac Mild GI SYMPTOMS Verified 01/21/21 09:39 Home Medications Medication Instructions Recorded Confirmed Type buspirone 7.5 mg tablet 7.5 mg PO BID 11/07/18 01/21/21 History cholecalciferol (vitamin D3) 10 400 unit PO QAM 11/07/18 01/21/21 History mcg (400 unit) tablet cyanocobalamin (vitamin B-12) 500 500 mcg PO QAM 11/07/18 01/21/21 History mcg tablet propylene glycol 0.6 % eye drops 1 drp ophthalmic (eye) Q6H PRN Dry 11/07/18 01/21/21 History (Systane Balance) Eye(S) trazodone 100 mg tablet 100 mg PO HS 11/07/18 01/21/21 History venlafaxine 150 mg 150 mg PO QAM 11/07/18 01/21/21 History capsule,extended release 24 hr (Effexor XR) lisinopril 10 1 tab PO QAM #90 tabs 06/12/19 01/21/21 Rx mg-hydrochlorothiazide 12.5 mg tablet magnesium hydroxide 400 mg/5 mL 5 ml PO DAILY PRN Stomach Upset 11/06/19 01/21/21 History oral suspension (Milk of MagnGREE) triamcinolone acetonide 0.1 % 1 applic topical BID PRN Rash 11/06/19 01/21/21 History topical cream metoprolol succinate 25 mg 25 mg PO DAILY #90 tabs 12/11/19 01/21/21 Rx tablet,extended release 24 hr montelukast 5 mg chewable tablet 5 mg PO DAILY #90 tabs 03/04/20 01/21/21 Rx (Singulair) simvastatin 10 mg tablet 10 mg PO QPM #90 tabs 03/04/20 01/21/21 Rx docusate sodium 100 mg capsule 100 mg PO BID #60 caps 04/03/20 01/21/21 Rx acetaminophen 325 mg capsule 325 mg PO QID PRN Pain 01/08/21 01/21/21 History (Tylenol) bisacodyl 10 mg rectal suppository 10 mg ND DAILY PRN Constipation 01/08/21 01/21/21 History (Dulcolax (bisacodyl)) clonazepam 0.5 mg tablet 0.5 mg PO DAILY PRN Anxiety 01/08/21 01/21/21 History diclofenac sodium 1 % topical gel 2 g topical QID PRN Pain 01/08/21 01/21/21 History donepezil 5 mg tablet 5 mg PO DAILY 01/08/21 01/21/21 History fluticasone 100 mcg-salmeterol 50 1 inh inhalation BID 01/08/21 01/21/21 History mcg/dose blistr powdr for inhalation (Advair Diskus) guaifenesin 600 mg tablet, 600 mg PO BID PRN Congestion 01/08/21 01/21/21 History extended release 12 hr (Mucinex) sodium phosphates 19 gram-7 118 ml ND DAILY PRN Constipation 01/08/21 01/21/21 History gram/118 mL enema (Fleet Enema) Past Med/Surg History Problem List (Updated 01/23/25 @ 16:12 by Annalise Nick PA-C) Ground-level fall Displaced fracture of left femoral neck Dysphagia, oropharyngeal phase Dysphagia Encounter for pre-operative examination COVID-19 (Acute) Chronic cough Palpitations Dementia Asthma (Chronic) Stress incontinence in female (Acute) Shoulder pain, left Breast pain Insomnia Hypertension (Acute) Hyperlipidemia Gastroesophageal reflux disease Anxiety disorder Skin lesion of back 4mm flesh colored mole, center of back. Meningioma (Chronic ~2014) Medical History (Updated 01/23/25 @ 16:12 by Annalise Nick PA-C) Acute GI bleeding Confusion Poor historian Rectal bleeding ? reason for colonoscopy?? Head pain following with Dr. Rodríguez History of Holter monitoring wore recently 08/2019, no result yet, d/t pain in chest/breast area Asthma inhaler prn Breast mass Osteoarthritis of left knee Dysphagia Prior evaluation Osteopenia Constipation Atypical chest pain SNHL (sensorineural hearing loss) Nontoxic multinodular goiter Mild cognitive impairment Glaucoma Fibromyalgia Cerebral atherosclerosis following with Dr. Rodríguez Allergic rhinitis due to dust Surgical History History of tooth extraction partial upper/lower denture History of colonoscopy History of cataract surgery unsure which eye Family History Brother Acute myocardial infarction Stroke syndrome Family history of diabetes mellitus Sister Family history of diabetes mellitus Unknown Ovarian cancer Heart disease Hypertension Mother Ovarian cancer Brother Family history of diabetes mellitus Sister Family history of diabetes mellitus Other No family history of adverse response to anesthesia Social History Smoking Status: Former smoker Age Started Using Tobacco: 21; Age Quit Using Tobacco: 22; packs per day: 0.5; Second Hand Exposure: No; Do You Dip or Chew Tobacco: No; Hx Alcohol Use: No Hx Substance Use: No Preferred Language: Greek Communication Ability: Effective Visual Impairment: Diminished Hearing Ability: Normal Wellness Health Coach Required: No Beliefs That Will Affect Care: None marital status: / Current Living Situation: Correction current occupational status: retired Feels Safe at Home: Yes Childhood Exposure to Second-Hand Smoke: No Diet: regular caffeine: No Dental Care, Regularly: Yes Physical Activity Frequency: Does not Exercise Seatbelt Use: always Sunscreen Use: No Assistive Devices: None Review of Systems Review of Systems: All systems reviewed & are unremarkable except as noted in HPI & below Musculoskeletal: + joint pain, + deformity and + limited range of motion Physical Exam Physical Exam: General: No acute distress, nondiaphoretic. Frail elderly woman. Skin: Warm, dry. No peripheral edema noted. MSK: Left lower extremity externally rotated. Tender to palpation of left hip. LLE ROM limited secondary to pain. Cardiac: Regular rate and rhythm without murmurs gallops or rubs. Pulm: Clear to auscultation bilaterally without wheezes, rales or rhonchi. Normal respiratory effort. 95% on 2 L NC. Abdominal: Soft, nontender, nondistended. Bowel sounds present. Neuro: A&O x3. No focal neurological deficits. Results & Data Results & Data Vital Signs (Past 12 Hours) Vital Signs Temp Pulse Resp BP Pulse Ox O2 Del Method O2 Flow Rate 01/23/25 12:12 78 01/23/25 11:00 97.5 F L 81 22 185/96 H 95 Nasal Cannula 2 Laboratory Results Reviewed CBC with differential, CMP, chemistries, respiratory bio fire Diagnostic Findings Reviewed CXR, hip/pelvis x-ray, chest CTA, CT A/P PG Care Time/CCT Total # of Minutes Spent Total Time Spent with Patient: Total time spent is greater than 50% in coordination of care (as documented) at patient's floor/unit and/or counseling patient: Coding Level of Care Code 61815 INT INP/OBS CARE MIN Diagnoses Displaced fracture of left femoral neck S72.002A Ground-level fall W18.30XA"
--- NOTE | 2025-01-23 14:20 | XRay Report ---
XR chest 1V portable HISTORY: 89 years-old Female fall, SOB acute shortness breath with chest pain COMPARISON: CTA chest of same day, chest radiograph 03/27/2020 TECHNIQUE: AP view of the chest FINDINGS: Cardiac silhouette is enlarged. Mild right hemidiaphragmatic elevation. Chronic interstitial coarseni ng without pneumothorax, pleural effusion or overt pulmonary edema. The bones of the chest appear mariella ssly intact. IMPRESSION: Cardiomegaly without acute process. ACT 112: Negative or not required by law. The above report was generated using voice recognition software. It may contain grammatical, syntax o r spelling errors. Electronically signed by: Clinton Larkin M.D. 01/23/2025 2:19 PM
[2025-01-23] MEDS ORDERED: ALUMINUM/MAGNESIUM SUSP 30 ML UDC PO PRN (16:37)
[2025-01-23] MEDS ORDERED: MoRPHine SULFATE 2 MG/ML CARP IV PRN (16:37)
[2025-01-23] MEDS ORDERED: MoRPHine SULFATE 4 MG/ML 1 ML CARP\\VIAL IV PRN (16:37)
[2025-01-23] MEDS ORDERED: POLYETHYLENE (MIRALAX) 17 GM PACK PO PRN (16:37)
--- NOTE | 2025-01-23 16:42 | Orthopedic Consultation ---
Date of Consultation January 23, 2025 Assessment & Plan (1) Displaced fracture of left femoral neck: Discussed conservative treatment versus surgical intervention with the patient and her power of title attorney Ramya. Conservative treatment options would consist of bed rest or bed at a chair and nonweightbearing for quite some time with the risks of increased malunion or an even nonunion. With the patient being an ambulator and relatively active surgical intervention was recommended. Both the patient and her power of title attorney agreed to proceed with surgical intervention. We will plan for a left hip hemiarthroplasty. Surgery is planned for January 24, 2025. Risks and complications of the procedure were explained to the patient and her power of title attorney (over the phone) and include but are not limited to infection, pain, bleeding, scarring, nerve or blood vessel damage, wound problems, weakness, stiffness, incomplete relief of symptoms, tendon or ligament injury, hardware failure, loosening, wear, leg length discrepancy, dislocation, blood clots, embolisms, heart attack, stroke and de ath. All questions were answered and informed consent was obtained today. Patient did sign her own consent form at the permission of her power of title attorney. Power of title attorney also provided verbal consent over the phone. We will have her be n.p.o. after midnight. She will need to be cleared medically to proceed with surgery. We will order preoperative Ancef and IV TXA for bleeding prophylaxis to be given within an hour of her procedure. She will be bedrest and nonweightbearing until surgery is performed. She does not take any chronic blood thinners but will be placed on aspirin 81 mg p.o. twice daily for DVT prophylaxis postoperatively. Postoperative course was discussed. She will be allowed out of bed on postoperative day 1 with the assistance of physical therapy and Occupational Therapy and will need to use a walker. They understand and agree with the plan. Findings are discussed with Dr. Clark. Thank you for this consultation. Approximately 45 minutes was spent reviewing her chart, obtaining history from patient and her family, performing a physical exam and discussing the plan with her POA over the phone. Supervising Physician Co-Signing Physician Notes I saw and examined the patient, reviewed her imaging findings, formulated the plan, and performed the substantive portion of the visit. Agree with above note. History of Present Illness Reason for Consultation: Left femoral neck fracture Attending Physician: Annalise Brown MD History of Present Illness Priscilla is a pleasant 89-year-old woman with past medical history of hypertension, hyperlipidemia, GERD, anxiety, cerebral atherosclerosis, fibromyalgia, bilateral sensorineural hearing loss, dementia, asthma, stress incontinence, insomnia, and vitamin D deficiency. She presented from [facility] with left hip pain. At the time of my exam, the patient was lying in bed in no acute distress. History is obtained from the patientand ED chart/notes as patient has baseline dementia. 2 days prior to presentation, patient sustained a ground-level mechanical fall. There was no head strike or loss of consciousness. She does not take blood thinners. Priscilla reports she got out of bed in the middle of the night and tripped, resulting in a fall. She denies any lightheadedness or dizziness prior to her fall. For the past 2 days, she has not bared weight on her left lower extremity secondary to pain. She reports a constant aching pain in her left hip/groin that radiates down her left leg. She denies any paresthesias. Additionally on initial presentation, she was placed on supplemental O2 at 2 L NC. She does not require supplemental oxygen at baseline. She denies dyspnea, cough, sinus congestion, headache, sore throat. She denies recent sick contacts. She denies any other injuries. She states that she ambulates very well without any assistive device at baseline. She states that she loves to walk. This has been confirmed by her POAReena as no other family was at bedside the time of my exam. She denies any previous left hip pain. Allergies Allergy/AdvReac Type Severity Reaction Status Date / Time Penicillins Allergy Intermediate HIVES Verified 01/21/21 09:39 Sulfa (Sulfonamide Allergy Intermediate Hives Verified 01/21/21 09:39 Antibiotics) adhesive Allergy Mild redness Verified 01/21/21 09:39 aspirin Allergy Unknown Unknown Verified 01/21/21 09:39 atorvastatin Allergy Unknown unknown Verified 01/21/21 09:39 Cipro Allergy Unknown ? Unverified 06/22/15 15:06 ciprofloxacin Allergy Unknown Unknown Verified 01/21/21 09:39 clindamycin Allergy Unknown Unknown Verified 01/21/21 09:39 erythromycin base Allergy Unknown Unknown Verified 01/21/21 09:39 escitalopram Allergy Unknown Unknown Verified 01/21/21 09:39 etodolac Allergy Unknown Unknown Verified 01/21/21 09:39 meloxicam Allergy Unknown unknown Verified 01/21/21 09:39 metronidazole Allergy Unknown Unknown Verified 01/21/21 09:39 naloxone [From Chantal NX] Allergy Unknown Unknown Verified 01/21/21 09:39 omeprazole Allergy Unknown Unknown Verified 01/21/21 09:39 pentazocine Allergy Unknown Unknown Verified 01/21/21 09:39 polyethylene glycol 400 Allergy Unknown Unknown Verified 01/21/21 09:39 [From Systane (propylene glycol)] propylene glycol Allergy Unknown Unknown Verified 01/21/21 09:39 [From Systane (propylene glycol)] pseudoephedrine Allergy Unknown Unknown Verified 01/21/21 09:39 temazepam Allergy Unknown Unknown Verified 01/21/21 09:39 tramadol Allergy Unknown Unknown Verified 01/21/21 09:39 fluvoxamine AdvReac Mild GI SYMPTOMS Verified 01/21/21 09:39 gabapentin AdvReac Mild gi symptoms Verified 01/21/21 09:39 hydralazine AdvReac Mild gi symptoms Verified 01/21/21 09:39 meclizine AdvReac Mild nausea/ Verified 01/21/21 09:39 vomiting prednisone AdvReac Mild thrush Verified 01/21/21 09:39 promethazine AdvReac Mild gi symptoms Verified 01/21/21 09:39 quetiapine AdvReac Mild gi symptoms Verified 01/21/21 09:39 risperidone AdvReac Mild GI SYMPTOMS Verified 01/21/21 09:39 Home Medications Medication Instructions Recorded Confirmed Type buspirone 7.5 mg tablet 7.5 mg PO BID 11/07/18 01/21/21 History cholecalciferol (vitamin D3) 10 400 unit PO QAM 11/07/18 01/21/21 History mcg (400 unit) tablet cyanocobalamin (vitamin B-12) 500 500 mcg PO QAM 11/07/18 01/21/21 History mcg tablet propylene glycol 0.6 % eye drops 1 drp ophthalmic (eye) Q6H PRN Dry 11/07/18 01/21/21 History (Systane Balance) Eye(S) trazodone 100 mg tablet 100 mg PO HS 11/07/18 01/21/21 History venlafaxine 150 mg 150 mg PO QAM 11/07/18 01/21/21 History capsule,extended release 24 hr (Effexor XR) lisinopril 10 1 tab PO QAM #90 tabs 06/12/19 01/21/21 Rx mg-hydrochlorothiazide 12.5 mg tablet magnesium hydroxide 400 mg/5 mL 5 ml PO DAILY PRN Stomach Upset 11/06/19 01/21/21 History oral suspension (Milk of Magnesia) triamcinolone acetonide 0.1 % 1 applic topical BID PRN Rash 11/06/19 01/21/21 History topical cream metoprolol succinate 25 mg 25 mg PO DAILY #90 tabs 12/11/19 01/21/21 Rx tablet,extended release 24 hr montelukast 5 mg chewable tablet 5 mg PO DAILY #90 tabs 03/04/20 01/21/21 Rx (Singulair) simvastatin 10 mg tablet 10 mg PO QPM #90 tabs 03/04/20 01/21/21 Rx docusate sodium 100 mg capsule 100 mg PO BID #60 caps 04/03/20 01/21/21 Rx acetaminophen 325 mg capsule 325 mg PO QID PRN Pain 01/08/21 01/21/21 History (Tylenol) bisacodyl 10 mg rectal suppository 10 mg SC DAILY PRN Constipation 01/08/21 01/21/21 History (Dulcolax (bisacodyl)) clonazepam 0.5 mg tablet 0.5 mg PO DAILY PRN Anxiety 01/08/21 01/21/21 History diclofenac sodium 1 % topical gel 2 g topical QID PRN Pain 01/08/21 01/21/21 History donepezil 5 mg tablet 5 mg PO DAILY 01/08/21 01/21/21 History fluticasone 100 mcg-salmeterol 50 1 inh inhalation BID 01/08/21 01/21/21 History mcg/dose blistr powdr for inhalation (Advair Diskus) guaifenesin 600 mg tablet, 600 mg PO BID PRN Congestion 01/08/21 01/21/21 History extended release 12 hr (Mucinex) sodium phosphates 19 gram-7 118 ml SC DAILY PRN Constipation 01/08/21 01/21/21 History gram/118 mL enema (Fleet Enema) Patient History Medical History (Updated 01/23/25 @ 17:29 by Cassie Chao PA-C) Acute GI bleeding Confusion Poor historian Rectal bleeding ? reason for colonoscopy?? Head pain following with Dr. Rodríguez History of Holter monitoring wore recently 08/2019, no result yet, d/t pain in chest/breast area Asthma inhaler prn Breast mass Osteoarthritis of left knee Dysphagia Prior evaluation Osteopenia Constipation Atypical chest pain SNHL (sensorineural hearing loss) Nontoxic multinodular goiter Mild cognitive impairment Glaucoma Fibromyalgia Cerebral atherosclerosis following with Dr. Rodríguez Allergic rhinitis due to dust Surgical History History of tooth extraction partial upper/lower denture History of colonoscopy History of cataract surgery unsure which eye Family History Brother Acute myocardial infarction Stroke syndrome Family history of diabetes mellitus Sister Family history of diabetes mellitus Unknown Ovarian cancer Heart disease Hypertension Mother Ovarian cancer Brother Family history of diabetes mellitus Sister Family history of diabetes mellitus Other No family history of adverse response to anesthesia Social History Smoking Status: Unknown if ever smoked Age Started Using Tobacco: 21; Age Quit Using Tobacco: 22; packs per day: 0.5; Second Hand Exposure: No; Do You Dip or Chew Tobacco: No; Hx Alcohol Use: No Hx Substance Use: No Preferred Language: Arabic Communication Ability: Effective Visual Impairment: Diminished Hearing Ability: Normal Dog Bather Required: No Beliefs That Will Affect Care: None marital status: / Current Living Situation: Residential Current Living Situation Comment: [facility] current occupational status: retired Feels Safe at Home: Yes Childhood Exposure to Second-Hand Smoke: No Diet: regular caffeine: No Dental Care, Regularly: Yes Physical Activity Frequency: Does not Exercise Seatbelt Use: always Sunscreen Use: No Assistive Devices: None Physical Exam Musculoskeletal: Exam focused on her left lower extremity: No edema of bilateral lower extremities Nontender to the left ankle, foot, calf, knee. Has discomfort with left hip logrolling. Skin is healthy around the left buttock and thigh without any evidence of skin abrasions or ecchymosis. She is unable to lift her left leg off the bed. Unable to flex her left knee due to pain in her left hip. No effusion to the left knee. Full ankle dorsiflexion, plantarflexion, inversion and eversion with normal strength. Distal pulses are 1+. Sensation is grossly intact to the left lower extremity. Exam focused on her right lower extremity: She is able to lift her leg higher up into the air independently. Strength 5/5. Able to flex her knee past 90 without any discomfort. No distal edema of the right lower extremity. Full ankle range of motion with normal strength. Distal pulses are 1+. Sensation is grossly intact. Exam of bilateral upper extremities: She has full painless range of motion of bilateral shoulders, elbows and wrist. No evidence of trauma such as skin abrasions, ecchymosis or erythema. No edema into either upper extremity. Distal pulses are 2+ and normal sensation throughout. Strength is 5/5. Results & Data Vital Signs (Past 12 Hours) Vital Signs Temp Pulse Pulse Pulse Resp BP BP 01/23/25 15:58 36.6 C 78 18 112/80 01/23/25 15:56 01/23/25 15:53 36.6 C 78 18 112/80 01/23/25 15:25 77 16 180/90 H 01/23/25 13:54 74 16 165/89 H 01/23/25 12:12 78 01/23/25 11:00 36.4 C L 81 22 185/96 H Pulse Ox O2 Del Method O2 Flow Rate 01/23/25 15:58 93 Nasal Cannula 2 01/23/25 15:56 Room Air 01/23/25 15:53 93 Nasal Cannula 2 01/23/25 15:25 96 Room Air 01/23/25 13:54 95 Room Air 01/23/25 12:12 01/23/25 11:00 95 Nasal Cannula 2 Laboratory Results 01/23/25 01/23/25 Range/Units 12:50 11:45 WBC 8.91 (4.8-10.8) K/ul RBC 4.18 L (4.20-5.40) M/uL Hgb 12.3 (12.0-16.0) g/dL Hct 35.9 L (37.0-47.0) % MCV 85.9 (80.0-100.0) fL MCH 29.4 (25.0-34.0) pg MCHC 34.3 (32.0-36.0) g/dL RDW Std Deviation 40.5 (36.4-46.3) fL RDW Coeff of Marielos 13.1 (11.5-14.5) % Plt Count 168 (130-400) K/uL MPV 10.9 (9.4-12.4) fL Immature Gran % (Auto) 0.9 % Neut % (Auto) 82.9 % Lymph % (Auto) 9.2 % [place] % (Auto) 5.3 % Eos % (Auto) 1.3 % Baso % (Auto) 0.4 % Neut # (Auto) 7.38 H (1.40-6.50) K/uL Lymph # (Auto) 0.82 L (1.20-3.40) K/uL [place] # (Auto) 0.47 (0.11-0.59) K/uL Eos # (Auto) 0.12 (0.00-0.50) K/uL Baso # (Auto) 0.04 (0.00-0.20) K/uL Immature Gran # (Auto) 0.08 (0.01-0.20) K/uL Sodium 138 (136-145) mmol/L Potassium 3.4 L (3.5-5.1) mmol/L Chloride 104 (98-107) mmol/L Carbon Dioxide 25 (21-32) mmol/L Anion Gap 9 (3-11) BUN 21 (6-23) mg/dl Creatinine 0.75 (0.6-1.2) mg/dl Est Cr Clr Drug Dosing 47.6 ml/min eGFR 77.01 BUN/Creatinine Ratio 28.0 H (10-20) Glucose 138 H (70-99(Fasting)) mg/dl Calcium 9.8 (8.6-10.3) mg/dl Total Bilirubin 0.7 (0.2-1.0) mg/dl AST 16 (13-39) U/L ALT 8 (7-52) U/L Alkaline Phosphatase 59 (34-104) U/L Troponin I High Sens 13.5 (0-14) pg/ml Total Protein 7.3 (6.0-8.3) gm/dl Albumin 4.4 (3.4-5.0) gm/dl Globulin 2.9 (2.5-4.0) gm/dl Albumin/Globulin Ratio 1.5 (0.9-2) Adenovirus (PCR) Not Detected (NotDetected) B. pertussis DNA (PCR) Not Detected (NotDetected) B.parapertussis DNA PCR Not Detected (NotDetected) C. pneumoniae DNA (PCR) Not Detected (NotDetected) Coronavirus OC43 (PCR) Not Detected (NotDetected) Coronavirus HKU1 (PCR) Not Detected (NotDetected) Coronavirus 229E (PCR) Not Detected (NotDetected) SARS-CoV-2 (PCR) Not Detected (NotDetected) Coronavirus NL63 (PCR) Not Detected (NotDetected) Human Metapneumovir PCR Not Detected (NotDetected) Influenza Type A (PCR) Not Detected (NotDetected) Influenza Type B (PCR) Not Detected (NotDetected) M. pneumoniae (PCR) Not Detected (NotDetected) Parainfluenza 1 (PCR) Not Detected (NotDetected) Parainfluenza 2 (PCR) Not Detected (NotDetected) Parainfluenza 3 (PCR) Not Detected (NotDetected) Parainfluenza 4 (PCR) Not Detected (NotDetected) RSV (PCR) Not Detected (NotDetected) Entero/Rhino (PCR) Not Detected (NotDetected) Diagnostic Findings Abdomen/Pelvis CT 01/23/25 11:26 CT angio chest PE protocol, CT abd pelvis IV con only HISTORY: 89 years-old Female with PE. CT chest abdominal pain status post fall TECHNIQUE: Multiple CTA images of the chest were obtained after the intravenous administration of 119 ml Optiray. Coronal and sagittal MIPS were obtained from the axial data set and were submitted for review. All measurements were obtained according to NASCET criteria. CT abdomen and pelvis with IV contrast only also obtained. A dose lowering technique was utilized adhering to the principles of ALARA. COMPARISON: Chest CT 08/30/2019, CT abdomen and pelvis 07/12/2015 and also March 27, 2020, radiograph of the pelvis and left hip with same day FINDINGS: CTA: Moderate cardiomegaly without pericardial effusion. Moderate coronary artery calcifications. Atherosclerosis of the aorta without aneurysm. Patency of the imaged great vessels. No pulmonary emboli are seen. CT CHEST: Multinodular thyroid with largest conglomerate nodule in the left measuring up to 5.4 cm, previously 4 cm. Partially calcified mediastinal and right hilar lymphadenopathy again noted compatible with prior granulomatous disease. No pneumothorax, pleural effusion or overt pulmonary edema. There are a few scattered benign calcified pulmonary granulomata are noted. Mild dependent subsegmental bibasilar atelectasis. No suspicious pulmonary nodules or masses. Central airways are patent. Unremarkable soft tissues. Degenerative changes of the spine and shoulders. No acute fracture identified. Scattered vertebral body hemangiomata noted within the thoracic spine. Mild chronic wedge deformity at T10. Mild 20% T7 compression deformity is new from prior without retropulsion CT ABDOMEN/PELVIS: Calcified granulomata of the liver and spleen. No pneumatosis or pneumoperitoneum. Unremarkable pancreas, adrenal glands, and gallbladder. Patency of the hepatic and portal veins. 11 mm peripherally calcified splenic artery aneurysm is unchanged. Mild cortical thinning of the kidneys without hydronephrosis. Atherosclerosis of the aorta without aneurysm. No lymphadenopathy. Duodenal diverticulum. Colonic diverticulosis without acute diverticulitis. No bowel obstruction or bowel wall thickening. Demineralized appearance to the bones. There is an acute, comminuted, impacted, angulated and mildly displaced fracture involving the mid aspect of the left femoral neck. Mild to moderate osteoarthritis of the hips. Deep tissue edema/hemorrhage surrounds the acute left hip fracture. No additional acute fracture identified. IMPRESSION: 1. Acute, mildly comminuted, impacted, angulated and displaced transcervical left femoral fracture. 2. No acute posttraumatic intrathoracic, intra-abdominal or intrapelvic abnormality identified. 3. Chronic T10 compression deformity with mild age-indeterminate T7 compression deformity which is new from 2020, also likely subacute or chronic. 4. Thyroid goiter. 5. Incidental findings as above. ACT 112: Negative or not required by law. The above report was generated using voice recognition software. It may contain grammatical, syntax or spelling errors. Electronically signed by: Clinton Larkin M.D. 01/23/2025 12:59 PM Chest CTA 01/23/25 11:26 CT angio chest PE protocol, CT abd pelvis IV con only HISTORY: 89 years-old Female with PE. CT chest abdominal pain status post fall TECHNIQUE: Multiple CTA images of the chest were obtained after the intravenous administration of 119 ml Optiray. Coronal and sagittal MIPS were obtained from the axial data set and were submitted for review. All measurements were obtained according to NASCET criteria. CT abdomen and pelvis with IV contrast only also obtained. A dose lowering technique was utilized adhering to the principles of ALARA. COMPARISON: Chest CT 08/30/2019, CT abdomen and pelvis 07/12/2015 and also March 27, 2020, radiograph of the pelvis and left hip with same day FINDINGS: CTA: Moderate cardiomegaly without pericardial effusion. Moderate coronary artery calcifications. Atherosclerosis of the aorta without aneurysm. Patency of the imaged great vessels. No pulmonary emboli are seen. CT CHEST: Multinodular thyroid with largest conglomerate nodule in the left measuring up to 5.4 cm, previously 4 cm. Partially calcified mediastinal and right hilar lymphadenopathy again noted compatible with prior granulomatous disease. No pneumothorax, pleural effusion or overt pulmonary edema. There are a few scattered benign calcified pulmonary granulomata are noted. Mild dependent subsegmental bibasilar atelectasis. No suspicious pulmonary nodules or masses. Central airways are patent. Unremarkable soft tissues. Degenerative changes of the spine and shoulders. No acute fracture identified. Scattered vertebral body hemangiomata noted within the thoracic spine. Mild chronic wedge deformity at T10. Mild 20% T7 compression deformity is new from prior without retropulsion CT ABDOMEN/PELVIS: Calcified granulomata of the liver and spleen. No pneumatosis or pneumoperitoneum. Unremarkable pancreas, adrenal glands, and gallbladder. Patency of the hepatic and portal veins. 11 mm peripherally calcified splenic artery aneurysm is unchanged. Mild cortical thinning of the kidneys without hydronephrosis. Atherosclerosis of the aorta without aneurysm. No lymphadenopathy. Duodenal diverticulum. Colonic diverticulosis without acute diverticulitis. No bowel obstruction or bowel wall thickening. Demineralized appearance to the bones. There is an acute, comminuted, impacted, angulated and mildly displaced fracture involving the mid aspect of the left femoral neck. Mild to moderate osteoarthritis of the hips. Deep tissue edema/hemorrhage surrounds the acute left hip fracture. No additional acute fracture identified. IMPRESSION: 1. Acute, mildly comminuted, impacted, angulated and displaced transcervical left femoral fracture. 2. No acute posttraumatic intrathoracic, intra-abdominal or intrapelvic abnormality identified. 3. Chronic T10 compression deformity with mild age-indeterminate T7 compression deformity which is new from 2019, also likely subacute or chronic. 4. Thyroid goiter. 5. Incidental findings as above. ACT 112: Negative or not required by law. The above report was generated using voice recognition software. It may contain grammatical, syntax or spelling errors. Electronically signed by: Clinton Larkin M.D. 01/23/2025 12:59 PM Hip/Pelvis X-Ray 01/23/25 11:26 XR hip LT 2V w pelvis CLINICAL HISTORY: fall, left hip pain COMPARISON: 10/01/2014 FINDINGS: There is an acute mildly displaced fracture at the left femoral neck with mild proximal migration of the distal fragment. No other fracture or dislocation seen at the pelvis or hips. IMPRESSION: Acute fracture left femoral neck. ACT 112: Negative or not required by law. Electronically signed by: Jimmy Drake M.D. 01/23/2025 12:47 PM Chest X-Ray 01/23/25 11:31 XR chest 1V portable HISTORY: 89 years-old Female fall, SOB acute shortness breath with chest pain COMPARISON: CTA chest of same day, chest radiograph 03/27/2020 TECHNIQUE: AP view of the chest FINDINGS: Cardiac silhouette is enlarged. Mild right hemidiaphragmatic elevation. Chronic interstitial coarsening without pneumothorax, pleural effusion or overt pulmonary edema. The bones of the chest appear grossly intact. IMPRESSION: Cardiomegaly without acute process. ACT 112: Negative or not required by law. The above report was generated using voice recognition software. It may contain grammatical, syntax or spelling errors. Electronically signed by: Clinton Larkin M.D. 01/23/2025 2:19 PM
[2025-01-23] MEDS: POTASSIUM CHLORIDE CRTAB 20 MEQ TABCR PO STA (16:56)
[2025-01-23] MEDS: AZELASTINE HCL 0.1% NASAL 200 SPRAYS/27,400 MCG BTL SCH (20:12)
[2025-01-23] MEDS: PROPRANOLOL HCL 10 MG TAB PO SCH (20:12)
[2025-01-23] MEDS: ACETAMINOPHEN 500 MG TAB PO SCH (20:13)
[2025-01-24 06:59] LABS: Hematocrit (blood only) 33.9 % (37.0-47.0); Hemoglobin 11.5 g/dL (12.0-16.0); Mean Corpuscular Hemoglobin 29.5 pg (25.0-34.0); Mean Corpuscular Volume 86.9 fL (80.0-100.0); Platelet Count 154 K/uL (130-400); RDW Standard Deviation 41.6 fL (36.4-46.3); Red Blood Count 3.90 M/uL (4.20-5.40); White Blood Count 7.12 K/ul (4.8-10.8)
[2025-01-24 07:19] LABS: Anion Gap 8.0 (3-11); Blood Urea Nitrogen 22.0 mg/dl (6-23); Calcium 9.2 mg/dl (8.6-10.3); Carbon Dioxide 26.0 mmol/L (21-32); Chloride 104.0 mmol/L (98-107); Creatinine Clr Calc Pharmacy 43.0 ml/min; Glucose 120.0 mg/dl (70-99(Fasting)); Potassium 3.8 mmol/L (3.5-5.1); Sodium 138.0 mmol/L (136-145)
[2025-01-24] MEDS: DONEPEZIL HCL 10 MG TAB PO SCH (08:35)
[2025-01-24] MEDS: CYANOCOBALAMIN (B-12) 500 MCG TABLET PO SCH (08:35)
[2025-01-24] MEDS: MONTELUKAST SODIUM 10 MG TABLET PO SCH (08:35)
[2025-01-24] MEDS: LISINOPRIL/HCTZ 10/12.5MG TAB PO SCH (08:41)
[2025-01-24] MEDS: MAGNESIUM OXIDE 400 MG TAB PO SCH (08:42)
[2025-01-24] MEDS: clonazePAM 0.5 MG TAB PO SCH (08:42)
[2025-01-24] MEDS ORDERED: ENOXAPARIN INJ 40 MG/0.4 ML SYR SQ SCH (09:00)
--- NOTE | 2025-01-24 10:22 | Orthopedic Progress Note ---
Date of Service January 24, 2025 Assessment & Plan (1) Displaced fracture of left femoral neck: Plan: Patient scheduled for left hip hemiarthroplasty today with Dr Clark Preop orders were placed: Ancef and TXA Keep NPO Continue care per medicine team Continue pain control Hold anticoags, can start DVT phx POD 1 Continue with pain control Abduction pillow to OR She will be bedrest until surgery, after surgery she will be WBAT with a walker and assistance. Recommend physical therapy/OT. All of her questions were address. She had no further concerns this morning Admission and Anticipated Discharge Date Admission Date: January 23, 2025 Subjective Pt was seen and examined bedside. She reports that she is doing good and pain is minimal. Denies having any questions or concerns today. Physical Exam Physical Exam: Patient is sitting comfortably in her bed. No acute distress. Her leg is shortened and externally rotated. No pain right now around her hip to palpate. Sensation in tact distally to light touch. 2+ dorsal pedal pulse is present. She is able to wiggle her toes and pump her ankle with DF/PF. Results & Data Vital Signs (Past 12 Hours) Vital Signs Temp Pulse Resp BP BP Pulse Ox O2 Del Method 01/24/25 09:29 156/81 H 01/24/25 08:39 194/68 H 184/77 H 01/24/25 07:11 36.7 C 67 16 177/78 H 93 Nasal Cannula 01/23/25 22:21 185/77 H O2 Flow Rate 01/24/25 09:29 01/24/25 08:39 01/24/25 07:11 2 01/23/25 22:21
[2025-01-24] MEDS ORDERED: VANCOMYCIN CONSULT ACTIVE PRN ×2 (10:40→16:40)
[2025-01-24] MEDS: CHOLECALCIFEROL 25 MCG (1000 UNITS) TAB PO SCH (11:01)
[2025-01-24] MEDS: VANCOMYCIN HCL 1,000 MG in SODIUM CHLORIDE 0.9% 250 ML IV ONE (12:19)
[2025-01-24] MEDS ORDERED: ONDANSETRON INJ 2 MG/ML 2 ML VIAL IV PRN (12:32)
[2025-01-24] MEDS ORDERED: ATROPINE SULFATE 0.1 MG/ML 10ML SYR IV PRN (12:32)
--- NOTE | 2025-01-24 12:32 | Anesthesiology Consultation ---
Date of Service January 24, 2025 Assessment & Plan Chart Review Chart Review: Acceptable Risk for Surgery Consults Requested none ASA ASA3 Proposed Anesthesia Anesthesia Type: General Risk / Benefits Reviewed With: PT / POA / Parent / Guardian, Accepts Plan and Informed Consent Obtained Additional Comments: Informed consent obtained via Pt's great Niece who is the POA via the the telephone. (Ramya Greenwood) Consent witnessed via bedside RN.All questions answered History Surgery Operation Date: 01/24/25 13:50 Proposed Procedures p Left Hip Cemented Hemiarthroplasty - Bhargav Clark MD Height/Weight Height: 5 ft 5 in Weight: 61.8 kg Allergies Allergy/AdvReac Type Severity Reaction Status Date / Time Penicillins Allergy Intermediate HIVES Verified 01/21/21 09:39 Sulfa (Sulfonamide Allergy Intermediate Hives Verified 01/21/21 09:39 Antibiotics) adhesive Allergy Mild redness Verified 01/21/21 09:39 aspirin Allergy Unknown Unknown Verified 01/21/21 09:39 atorvastatin Allergy Unknown unknown Verified 01/21/21 09:39 Cipro Allergy Unknown ? Unverified 06/22/15 15:06 ciprofloxacin Allergy Unknown Unknown Verified 01/21/21 09:39 clindamycin Allergy Unknown Unknown Verified 01/21/21 09:39 erythromycin base Allergy Unknown Unknown Verified 01/21/21 09:39 escitalopram Allergy Unknown Unknown Verified 01/21/21 09:39 etodolac Allergy Unknown Unknown Verified 01/21/21 09:39 meloxicam Allergy Unknown unknown Verified 01/21/21 09:39 metronidazole Allergy Unknown Unknown Verified 01/21/21 09:39 naloxone [From Talwin NX] Allergy Unknown Unknown Verified 01/21/21 09:39 omeprazole Allergy Unknown Unknown Verified 01/21/21 09:39 pentazocine Allergy Unknown Unknown Verified 01/21/21 09:39 polyethylene glycol 400 Allergy Unknown Unknown Verified 01/21/21 09:39 [From Systane (propylene glycol)] propylene glycol Allergy Unknown Unknown Verified 01/21/21 09:39 [From Systane (propylene glycol)] pseudoephedrine Allergy Unknown Unknown Verified 01/21/21 09:39 temazepam Allergy Unknown Unknown Verified 01/21/21 09:39 tramadol Allergy Unknown Unknown Verified 01/21/21 09:39 fluvoxamine AdvReac Mild GI SYMPTOMS Verified 01/21/21 09:39 gabapentin AdvReac Mild gi symptoms Verified 01/21/21 09:39 hydralazine AdvReac Mild gi symptoms Verified 01/21/21 09:39 meclizine AdvReac Mild nausea/ Verified 01/21/21 09:39 vomiting prednisone AdvReac Mild thrush Verified 01/21/21 09:39 promethazine AdvReac Mild gi symptoms Verified 01/21/21 09:39 quetiapine AdvReac Mild gi symptoms Verified 01/21/21 09:39 risperidone AdvReac Mild GI SYMPTOMS Verified 01/21/21 09:39 Medications Home Medications Medication Instructions Recorded Confirmed Last Taken buspirone 7.5 mg tablet 7.5 mg PO BID 11/07/18 01/21/21 01/13/21 cholecalciferol (vitamin D3) 10 400 unit PO QAM 11/07/18 01/21/21 01/13/21 mcg (400 unit) tablet cyanocobalamin (vitamin B-12) 500 500 mcg PO QAM 11/07/18 01/21/21 01/13/21 mcg tablet propylene glycol 0.6 % eye drops 1 drp ophthalmic (eye) Q6H PRN Dry 11/07/18 01/21/21 Unknown (Systane Balance) Eye(S) trazodone 100 mg tablet 100 mg PO HS 11/07/18 01/21/21 01/13/21 venlafaxine 150 mg 150 mg PO QAM 11/07/18 01/21/21 01/13/21 capsule,extended release 24 hr (Effexor XR) lisinopril 10 1 tab PO QAM #90 tabs 06/12/19 01/21/21 01/13/21 mg-hydrochlorothiazide 12.5 mg tablet magnesium hydroxide 400 mg/5 mL 5 ml PO DAILY PRN Stomach Upset 11/06/19 01/21/21 Unknown oral suspension (Milk of Magnesia) triamcinolone acetonide 0.1 % 1 applic topical BID PRN Rash 11/06/19 01/21/21 Unknown topical cream metoprolol succinate 25 mg 25 mg PO DAILY #90 tabs 12/11/19 01/21/21 01/13/21 tablet,extended release 24 hr montelukast 5 mg chewable tablet 5 mg PO DAILY #90 tabs 1201/21/21 01/13/21 (Singulair) simvastatin 10 mg tablet 10 mg PO QPM #90 tabs 03/04/20 01/21/21 01/12/21 docusate sodium 100 mg capsule 100 mg PO BID #60 caps 04/03/20 01/21/21 01/13/21 acetaminophen 325 mg capsule 325 mg PO QID PRN Pain 01/08/21 01/21/21 Unknown (Tylenol) bisacodyl 10 mg rectal suppository 10 mg VA DAILY PRN Constipation 01/08/21 01/21/21 Unknown (Dulcolax (bisacodyl)) clonazepam 0.5 mg tablet 0.5 mg PO DAILY PRN Anxiety 01/08/21 01/21/21 01/13/21 diclofenac sodium 1 % topical gel 2 g topical QID PRN Pain 01/08/21 01/21/21 01/13/21 donepezil 5 mg tablet 5 mg PO DAILY 01/08/21 01/21/21 01/13/21 fluticasone 100 mcg-salmeterol 50 1 inh inhalation BID 01/08/21 01/21/21 01/13/21 mcg/dose blistr powdr for inhalation (Advair Diskus) guaifenesin 600 mg tablet, 600 mg PO BID PRN Congestion 01/08/21 01/21/21 01/13/21 extended release 12 hr (Mucinex) sodium phosphates 19 gram-7 118 ml VA DAILY PRN Constipation 01/08/21 01/21/21 Unknown gram/118 mL enema (Fleet Enema) Active Medications Generic Name Dose Route Start Last Admin Trade Name Freq PRN Reason Stop Dose Admin Acetaminophen 1,000 mg 01/23/25 20:00 01/24/25 04:18 Acetaminophen 500 Mg Tab PO 02/22/25 19:59 Not Given Q8H GIANCARLO Azelastine HCl 1 sprays 01/23/25 21:00 01/24/25 08:42 Azelastine Hcl 0.1% Nasal 200 Sprays/27,400 Mcg Btl NA 02/22/25 20:59 1 sprays BID GIANCARLO Administration Buspirone HCl 15 mg 01/23/25 21:00 01/24/25 08:42 Buspirone 7.5 Mg Tab PO 02/22/25 20:59 15 mg TID GIANCARLO Administration Clonazepam 0.5 mg 01/24/25 09:00 01/24/25 08:42 Clonazepam 0.5 Mg Tab PO 02/23/25 08:59 Not Given QAM GIANCARLO Cyanocobalamin 500 mcg 01/24/25 09:00 01/24/25 08:35 Cyanocobalamin (B-12) 500 Mcg Tablet PO 02/23/25 08:59 Not Given QAM GIANCARLO Donepezil HCl 10 mg 01/24/25 09:00 01/24/25 08:35 Donepezil Hcl 10 Mg Tab PO 02/23/25 08:59 Not Given QAM GIANCARLO Fluoxetine HCl 20 mg 01/24/25 09:00 01/24/25 08:35 Fluoxetine Hcl 20 Mg Cap PO 02/23/25 08:59 Not Given QAM GIANCARLO Lisinopril/HCTZ 1 tab 01/24/25 09:00 01/24/25 08:41 Lisinopril/Hctz 10/12.5mg Tab PO 02/23/25 08:59 1 tab QAM GIANCARLO Administration Magnesium Oxide 400 mg 01/24/25 09:00 01/24/25 08:42 Magnesium Oxide 400 Mg Tab PO 02/23/25 08:59 Not Given QAM GIANCARLO Montelukast Sodium 5 mg 01/24/25 09:00 01/24/25 08:35 Montelukast Sodium 10 Mg Tablet PO 02/23/25 08:59 Not Given QAM GIANCARLO Paroxetine HCl 10 mg 01/24/25 09:00 01/24/25 08:42 Paroxetine Hcl 10 Mg Tab PO 02/23/25 08:59 10 mg DAILY GIANCARLO Administration Propranolol HCl 10 mg 01/23/25 21:00 01/24/25 07:27 Propranolol Hcl 10 Mg Tab PO 02/22/25 20:59 10 mg BID GIANCARLO Administration Trazodone HCl 50 mg 01/23/25 21:00 01/23/25 20:12 Trazodone Hcl 50 Mg Tab PO 02/22/25 20:59 50 mg HS GIANCARLO Administration Vitamin D 25 mcg 01/24/25 09:30 01/24/25 11:01 Cholecalciferol 25 Mcg (1000 Units) Tab PO 02/23/25 09:29 Not Given QAM GIANCARLO Past Medical History Medical History (Updated 01/24/25 @ 11:50 by Enma Carter RN) Dementia Acute GI bleeding Confusion Poor historian Rectal bleeding ? reason for colonoscopy?? Head pain following with Dr. Rodríguez History of Holter monitoring wore recently 08/2019, no result yet, d/t pain in chest/breast area Asthma inhaler prn Breast mass Osteoarthritis of left knee Dysphagia Prior evaluation Osteopenia Constipation Atypical chest pain SNHL (sensorineural hearing loss) Nontoxic multinodular goiter Mild cognitive impairment Glaucoma Fibromyalgia Cerebral atherosclerosis following with Dr. Rodríguez Allergic rhinitis due to dust Past Family History Family History Brother Acute myocardial infarction Stroke syndrome Family history of diabetes mellitus Sister Family history of diabetes mellitus Unknown Ovarian cancer Heart disease Hypertension Mother Ovarian cancer Brother Family history of diabetes mellitus Sister Family history of diabetes mellitus Other No family history of adverse response to anesthesia Past Surgical History Surgical History History of tooth extraction partial upper/lower denture History of colonoscopy History of cataract surgery unsure which eye Social History Smoking Status: Unknown if ever smoked tobacco type: cigarettes Do You Dip or Chew Tobacco: No Hx Alcohol Use: No Hx Substance Use: No substance use type: does not use Review of Systems ROS Unobtainable: Unobtainable due to cognitive status Physical Exam Vital Signs Last Vital Signs Temp 36.7 C 01/24/25 07:11 Pulse 67 01/24/25 07:11 Resp 16 01/24/25 07:11 BP 156/81 H 01/24/25 09:29 Pulse Ox 93 01/24/25 07:11 O2 Del Method Nasal Cannula 01/24/25 07:11 O2 Flow Rate 2 01/24/25 07:11 physical exam limited 2/2 dementia. pt alert and oriented x1 Constitutional + altered mental status ENMT Thyromental Distance: > or= 3.5 Finger Breadths Mallampati Class: II Neck normal visual inspection Respiratory normal respiratory effort Cardiovascular Rate/Rhythm: regular rate Musculoskeletal Extremities: extremities normal to inspection Neurologic moves all extremities Psychiatric Orientation: alert oriebnted x2. Knows her name and that she is in [place] and that she is in a medical building. Does not know date or year. Testing Laboratory Results 01/24/25 06:26 01/24/25 06:26
[2025-01-24] MEDS: LACTATED RINGER'S 1,000 ML IV SCH (12:34)
[2025-01-24] MEDS ORDERED: LIDOCAINE 2% 2 ML VIAL/AMP(20MG/ML) INFIL ONE (13:06)
[2025-01-24] MEDS ORDERED: ONDANSETRON INJ 2 MG/ML 2 ML VIAL ONE (13:06)
[2025-01-24] MEDS ORDERED: PROPOFOL IV EMULSION 10 MG/ML 20 ML VIAL IV ONE ×2 (13:06→14:31)
[2025-01-24] MEDS ORDERED: ROCURONIUM BROMIDE 10 MG/ML 5 ML VIAL IV ONE (13:07)
[2025-01-24] MEDS: ROPIVACAINE 0.5% HCL/PF 246 MG, Ketorolac (*for OR use only*) 30 MG, EPINEPHrine 30MG/3... INFIL SCH (14:41)
[2025-01-24] MEDS: TRANEXAMIC ACID / 0.7% NACL 1000MG/100ML BAG IV ONE ×2 (14:41→16:48)
[2025-01-24] MEDS ORDERED: PHENYLEPHRINE 100MCG/ML 5ML SYR ONE (14:52)
[2025-01-24] MEDS ORDERED: ePHEDrine sulfate 50 MG/5 ML SYR ONE (14:52)
[2025-01-24] MEDS ORDERED: SUGAMMADEX SODIUM 200 MG/2 ML VIAL IV ONE (15:06)
[2025-01-24] MEDS: TRANEXAMIC ACID / 0.7% NACL 1,000 MG/100 ML BAG IV ONE (15:08)
[2025-01-24] MEDS ORDERED: LABETALOL HCL IV 5 MG/ML 20ML IV ONE (15:34)
--- NOTE | 2025-01-24 15:37 | Operative Report ---
Post Operative Report Pre & Post Diagnosis Operation Date: 01/24/25 13:50 Pre-Op Diagnosis: Left displaced femoral Neck Fracture Post-Op Diagnosis: Left displaced femoral Neck Fracture I identified the patient and participated in the time-out.: Yes Procedure Operation Date: 01/24/25 13:50 Actual Procedures p Left Hip Cemented Hemiarthroplasty(Left) - Bhargav Clark MD Surgeon Bhargav Clark MD Hospital Director Conor Bowen PA-C. No resident or fellow was available to assist. Estimated Blood Loss 50 Findings Consistent with Post-Op Diagnosis Specimens Left femoral head Anesthesia Type General Complications none Disposition Disposition: Recovery Room Indications 89-year-old female, with medical history significant for dementia, normally ambulates at baseline. She fell 2 days ago and has been complaining of left hip pain. She presented to the emergency room yesterday where x-rays demonstrated a displaced left femoral neck fracture. I saw and examined the patient and spoke with her power of release coordinator Reena, about her diagnosis and treatment options. She was a candidate for surgery to improve pain and allow her to regain the ability to ambulate. After reviewing all of her options patient and her power of release coordinator elected to proceed with surgery. Informed consent was signed. Description of Procedure Patient was identified in the preoperative holding area where her surgical site was marked. She was brought back to the operating room where general anesthesia was administered on the hospital bed. She was then carefully moved onto the operating room table and then gently turned in the lateral decubitus position. Axillary roll was placed. All bony prominences were padded. Perioperative antibiotics were administered. She was prepped and draped in the usual sterile fashion. Prior to incision a multidisciplinary timeout was called. All in the room were in agreement. I began by making a 10 cm long incision for a posterior approach to the hip. I dissected down through subcutaneous tissues to the level of fascia. Fascia was incised in line with the incision. Charnley bow was placed. Piriformis and short external rotators along with the posterior capsule were taken and 1 flaps with a hockey-stick shaped incision. The leg was internally rotated to expose the femoral neck. Fractured femoral neck was identified. A saw was used to m opal our femoral neck osteotomy below the fracture using the angle cutting guide as a template. The fractured femoral head and femoral neck was then removed with the assistance of a corkscrew. The ligamentum teres was excised. The acetabulum was irrigated out. There was some degenerative tearing and ossification of her labrum. I debrided this so that the remaining labrum was stable. We then trialed with a 47 mm head. This gave us a nice suction fit in the acetabulum. Next, we turned our attention toward the femur. The lateral neck was removed with a box osteotome. Intramedullary guide was used followed by the lateralizing reamer. I then broached up to a size 3 [place] stem. We then trialed with a standard offset neck and +1.5 mm head. This gave us good adventist of her leg lengths and her shuck test was normal. No impingement with extension and external rotation. At 90 degrees hip flexion she could be internally rotated 65 degrees before levering out of the cup which I was happy with. At this point the hip was dislocated and the femoral trial was removed. A cement restrictor was placed down the femoral canal to the appropriate depth. Femoral canal was irrigated out and dried. Cement was mixed on the back table. Cement was then injected into the femoral canal and pressurized with my thumbs. I then inserted the size 3 [place] cemented stem and held this in position until it completely cured in approximately 20 degrees of anteversion. Excess cement was removed. Once the cement had completely cured we then opened up the bipolar head and assembled this on the back table. This was gently impacted onto the trunnion, the acetabulum was irrigated out, and the hip was atraumatically reduced. Injection cocktail was placed throughout the subcutaneous tissues with 10 cc injected around the capsule. I then began to close. The short external rotators and piriformis were closed using #2 Vicryl sutures x 2. One of the sets of sutures was placed through bone tunnel in the posterior aspect of the greater trochanter well the second set was passed through the abductors and tied down over the trochanter. Excellent fixation was obtained. Fascia was run with a looped #1 PDS. Subcutaneous layer was closed with #1 PDS in running fashion. Deep dermis was closed with 2-0 Vicryl in running fashion. The skin was closed with a Zipline and Dermabond. Sterile dressing of Silverlon 4 x 4's ABDs and foam tape was applied. Patient was then carefully rolled supine, extubated, and transferred to the cover room in stable condition. Postoperative course: The patient be readmitted to the hospitalist service. She will be weightbearing as tolerated with posterior hip precautions, and max assist as she is a high fall risk. Recommend aspirin for DVT prophylaxis 81 mg twice a day. Follow-up in the orthopedic clinic 2 weeks after discharge with my PA. I attest to the content of the Intraoperative Record and any orders documented therein. Any exceptions are noted below.
--- NOTE | 2025-01-24 15:51 | Operative Report ---
Post Operative Report Pre & Post Diagnosis Operation Date: 01/24/25 13:50 Pre-Op Diagnosis: Left Femoral Neck Fracture Post-Op Diagnosis: Left Femoral Neck Fracture I identified the patient and participated in the time-out.: Yes Procedure Operation Date: 01/24/25 13:50 Actual Procedures p Left Hip Cemented Hemiarthroplasty(Left) - Bhargav Clark MD Surgeon KAREN Clark MD Stratigraphy Teacher Conor Bowen PA-C. No resident or fellow was available to assist. Estimated Blood Loss 50 Findings Consistent with Post-Op Diagnosis see operative report Specimens see operative report Drains none Complications none Disposition Accompanied Patient To Recovery: Yes Indications This 89-year-old female presented through the ED with complaints of a left hip fracture. Her family elected to have her proceed with hemiarthroplasty of the hip in hopes of improving her pain and function. Preoperative imaging was obtained. Description of Procedure The patient was taken to the operating room where she was given general anesthesia. She was prepped and draped in the usual sterile fashion. Please see Dr. Clark's operative report for specifics of the procedure. I was present for the majority of the case from trial implant placement through final wound closure. Assistance was provided in tissue retraction, hemostasis, trial implant placement, final implant placement, and final wound closure. The patient was taken to the recovery room in satisfactory condition. I attest to the content of the Intraoperative Record and any orders documented therein. Any exceptions are noted below.
--- NOTE | 2025-01-24 16:32 | Hospitalist Progress Note ---
"Date of Service January 24, 2025 Assessment & Plan (1) Displaced fracture of left femoral neck: (2) Ground-level fall: Huy Wells is a pleasant 89-year-old woman with past medical history of hypertension, hyperlipidemia, GERD, anxiety, depression, mood disorder cerebral atherosclerosis, fibromyalgia, bilateral sensorineural hearing loss, dementia, asthma, stress incontinence, insomnia, and vitamin D deficiency. She presented to the ED after sustaining a mechanical ground-level fall 2 days prior to admission. No head strike or LOC. No blood thinners. Workup in ED revealed acute mildly comminuted, impacted, angulated, and displaced transcervical left femoral fracture. No acute posttraumatic intrathoracic, intra-abdominal, or intrapelvic abnormalities identified. Chronic T10 compression deformity and age-indeterminate T7 compression deformity that is likely subacute or chronic. She was admitted for management of her left femoral neck fracture. #Left femoral neck fracture | Mechanical ground level fall | Age-related osteoporosis with current pathologic fracture, left femur - May placed in ED on arrival - Orthopedic surgery consulted - s/p left hip cemented hemiarthroplasty 01/[address] Clark - Pain regimen: Scheduled Tylenol 1,000 mg Q8H, morphine 2-4 mg Q3h PRN mod- severe pain - Vitamin D level low at 15.7. Started cholecalciferol 25 mcg daily - Aspirin 81 mg BID to start tomorrow 01/25 for DVT prophylaxis per ortho's preference - PT/OT consulted #Hypoxia - patient does not wear supplemental O2 at baseline, but needed 2 L NC on arrival to maintain O2 sat - Respiratory BioFire negative. CXR unremarkable. Asymptomatic - Incentive spirometer Q1HWA - Supplemental O2 PRN to maintain O2 sat >90% #Hypokalemia - now resolved - Mild, K 3.4 on arrival, repleted with oral supplementation, augmented appropriately - Continue home Mag-Ox 400 mg daily #Hypertension | Hyperlipidemiacontinue lisinoprilHCTZ 10-12.5 mg daily #Asthmacontinue Singulair 5 mcg daily #Vitamin B12 deficiencycontinue cyanocobalamin 500 mg daily #Depression/anxiety | Dementia | Mood disorder continue buspirone 15 mg TID, paroxetine 10 mg daily, trazodone 50 mg HS, propranolol 10 mg BID, clonazepam 0.25 mg daily, fluoxetine 20 mg daily, #Dementiacontinue donepezil 10 mg daily #Chronic rhinitiscontinue azelastine nasal spray 1 spray in each nostril BID VTE PPx: Aspirin 81 mg BID Dispo: Pending PT/OT evaluations Started vitamin D supplementation Discussed case with orthopedic ASHLEY Admission and Anticipated Discharge Date Admission Date: January 23, 2025 Supervising Physician Co-Signing Physician Notes PA Supervision Note: I did not personally see or examine the patient today, but I verified all marks points of SHARLENE Nick's assessment and plan with the following exceptions/additions: None Subjective Patient seen and evaluated at bedside prior to going to the OR. She remains pleasantly confused and does not voice any complaints or concerns at this time. She denies pain in her left hip/lower extremity. She denies shortness of breath. Physical Exam Physical Exam: General: No acute distress, nondiaphoretic. Frail elderly woman. Skin: Warm, dry. No peripheral edema noted. MSK: Left lower extremity externally rotated. Tender to palpation of left hip. LLE ROM limited secondary to pain. Ecchymosis on left hip Cardiac: Regular rate and rhythm without murmurs gallops or rubs. Pulm: Clear to auscultation bilaterally without wheezes, rales or rhonchi. Normal respiratory effort. 96% on 2 L NC. Abdominal: Soft, nontender, nondistended. Bowel sounds present. : May catheter draining clear yellow urine. Neuro: A&O x3. No focal neurological deficits. Results & Data Results & Data Vital Signs (Past 12 Hours) Vital Signs Temp Pulse Pulse Resp BP BP Pulse Ox 01/24/25 16:20 61 21 170/73 H 97 01/24/25 16:10 97.7 F 62 19 164/74 H 95 01/24/25 16:00 65 16 142/78 H 97 01/24/25 15:50 64 15 133/66 99 01/24/25 15:41 97.3 F L 65 16 163/67 H 99 01/24/25 12:26 97.9 F 65 18 155/117 H 98 01/24/25 09:29 156/81 H 01/24/25 08:39 194/68 H 184/77 H 01/24/25 07:11 98.1 F 67 16 177/78 H 93 01/24/25 07:00 O2 Del Method O2 Flow Rate 01/24/25 16:20 Nasal Cannula 2 01/24/25 16:10 Nasal Cannula 2 01/24/25 16:00 Nasal Cannula 2 01/24/25 15:50 Oxymask 6 01/24/25 15:41 Oxymask 6 01/24/25 12:26 Nasal Cannula 2 01/24/25 09:29 01/24/25 08:39 01/24/25 07:11 Nasal Cannula 2 01/24/25 07:00 Nasal Cannula 2 Laboratory Results Reviewed CBC, BMP, vitamin D PG Care Time/CCT Total # of Minutes Spent Total Time Spent with Patient: Total time spent is greater than 50% in coordination of care (as documented) at patient's floor/unit and/or counseling patient: Coding Level of Care Code 88064 SUB INP/OBS CARE 350MIN Diagnoses Displaced fracture of left femoral neck S72.002A Ground-level fall W18.30XA"
[2025-01-24] MEDS ORDERED: MAGNESIUM HYDROXIDE SUSP 30 ML UDC PO PRN (16:40)
[2025-01-24] MEDS ORDERED: diphenhydrAMINE 50 MG/ML VIAL IV PRN (16:40)
[2025-01-24] MEDS ORDERED: METOCLOPRAMIDE HCL INJ 5 MG/ML 2 ML VIAL IV PRN (16:40)
[2025-01-24] MEDS ORDERED: ALUMINUM/MAGNESIUM SUSP 30 ML UDC PO PRN (16:40)
[2025-01-24] MEDS ORDERED: NALOXONE HCL 0.4 MG/1 ML VIAL/CARP IV PRN (16:40)
[2025-01-24] MEDS: ORTHO JOINT ANESTHETIC ONE (16:48)
[2025-01-24] MEDS: SODIUM CHLORIDE 0.9% 1,000 ML IV SCH (16:53)
--- NOTE | 2025-01-24 17:03 | Anesthesiology Progress Note ---
Date of Service January 24, 2025 Anesthesia Post Procedure Vital Signs Vital Signs: Temp Pulse Pulse Resp BP BP Pulse Ox 01/24/25 16:45 36.4 C L 61 16 184/78 H 97 01/24/25 16:20 61 21 170/73 H 97 01/24/25 16:10 36.5 C 62 19 164/74 H 95 01/24/25 16:00 65 16 142/78 H 97 01/24/25 15:50 64 15 133/66 99 01/24/25 15:41 36.3 C L 65 16 163/67 H 99 01/24/25 12:26 36.6 C 65 18 155/117 H 98 01/24/25 09:29 156/81 H 01/24/25 08:39 194/68 H 184/77 H 01/24/25 07:11 36.7 C 67 16 177/78 H 93 01/24/25 07:00 01/23/25 22:21 185/77 H 01/23/25 22:10 36.9 C 67 16 164/74 H 95 01/23/25 20:00 01/23/25 19:12 36.5 C 84 20 195/84 H 94 O2 Del Method O2 Flow Rate 01/24/25 16:45 Nasal Cannula 2 01/24/25 16:20 Nasal Cannula 2 01/24/25 16:10 Nasal Cannula 2 01/24/25 16:00 Nasal Cannula 2 01/24/25 15:50 Oxymask 6 01/24/25 15:41 Oxymask 6 01/24/25 12:26 Nasal Cannula 2 01/24/25 09:29 01/24/25 08:39 01/24/25 07:11 Nasal Cannula 2 01/24/25 07:00 Nasal Cannula 2 01/23/25 22:21 01/23/25 22:10 Nasal Cannula 2 01/23/25 20:00 Nasal Cannula 2 01/23/25 19:12 Nasal Cannula 2 Pain Intensity Left Hip: Pain Intensity: 10 Transfer of Care Handoff Completed per policy Notes Mental Status: alert / awake / arousable Patient Amnestic to Procedure: Yes Nausea / Vomiting: adequately controlled Pain: adequately controlled Airway Patency, RR, SpO2: stable & adequate BP & HR: stable & adequate Hydration State: stable & adequate Anesthetic Complications: no major complications apparent and Pt Satisfied with anesthetic care
--- NOTE | 2025-01-24 17:12 | XRay Report ---
INDICATION: Pain. Postoperative evaluation. TECHNIQUE: Frontal pelvic radiograph was obtained. COMPARISON: None FINDINGS: Postoperative changes of recent left hip arthroplasty with components in anatomic alignment. Expected postoperative changes are present in the surrounding soft tissues IMPRESSION: Left hip arthroplasty with components in anatomic alignment. Expected postoperative changes of the soft tissues. Electronically signed by Lavon Christianson 01-24-2025 5:11 PM
[2025-01-24] MEDS: FERROUS GLUCONATE 324 MG TAB PO SCH (17:42)
[2025-01-24] MEDS: ASCORBIC ACID 500 MG TAB PO SCH (17:42)
[2025-01-24] MEDS: DOCUSATE SODIUM 100 MG CAP PO SCH (20:37)
[2025-01-24] MEDS: SENNA 8.6 MG TAB PO SCH (20:38)
[2025-01-24] MEDS: ASPIRIN 81 MG ECTAB PO SCH (20:38)
[2025-01-25] MEDS: VANCOMYCIN HCL 1,000 MG in SODIUM CHLORIDE 0.9% 250 ML IV SCH (01:23)
[2025-01-25] MEDS: ONDANSETRON INJ 2 MG/ML 2 ML VIAL IV PRN (06:12)
[2025-01-25] MEDS ORDERED: TRANEXAMIC ACID / 0.7% NACL 1,000 MG/100 ML BAG IV SCH (06:30)
[2025-01-25 06:52] LABS: Hematocrit (blood only) 30.4 % (37.0-47.0); Hemoglobin 10.4 g/dL (12.0-16.0); Immature Granulocytes # (auto) 0.05 K/uL (0.01-0.20); Immature Granulocytes % (auto) 0.7 %; Mean Corpuscular Hemoglobin 29.9 pg (25.0-34.0); Mean Corpuscular Volume 87.4 fL (80.0-100.0); Platelet Count 164 K/uL (130-400); RDW Standard Deviation 41.1 fL (36.4-46.3); Red Blood Count 3.48 M/uL (4.20-5.40); White Blood Count 7.54 K/ul (4.8-10.8)
[2025-01-25 07:19] LABS: Anion Gap 8.0 (3-11); Blood Urea Nitrogen 24.0 mg/dl (6-23); Calcium 8.7 mg/dl (8.6-10.3); Carbon Dioxide 24.0 mmol/L (21-32); Chloride 105.0 mmol/L (98-107); Creatinine Clr Calc Pharmacy 39.2 ml/min; Glucose 116.0 mg/dl (70-99(Fasting)); Potassium 3.7 mmol/L (3.5-5.1); Sodium 137.0 mmol/L (136-145)
[2025-01-25] MEDS: dexAMETHasone 10 MG in SYRINGE 0 ML IV SCH (08:15)
[2025-01-25] MEDS: MULTIVITAMIN TAB PO SCH (08:17)
[2025-01-25] MEDS ORDERED: APIXABAN 2.5 MG TAB PO SCH (09:00)
--- NOTE | 2025-01-25 10:36 | Orthopedic Progress Note ---
Date of Service January 25, 2025 Assessment & Plan (1) Status post hemiarthroplasty of left hip: Plan: The patient is pleasantly confused this morning. I reviewed her hospital stay with her including her surgery yesterday. She asked if she would need to go to rehab. I think she can safely be return to the longterm facility and have therapy there. Her dressings can be changed tomorrow as they are currently dry. Follow-up in the office in 2 weeks for Zipline removal. Importance of total hip precautions were reviewed with her. It is difficult to ascertain how much she is retaining, but she did verbalize understanding. Continue with the wedge pillow between her legs for sleeping. Given her aspirin allergy, Eliquis 2.5 mg twice daily x 4 weeks can be used for DVT prophylaxis. Continue with knee-high TERRANCE stockings and SCDs for DVT prophylaxis as well. Apply ice to the hip frequently to reduce pain and swelling. Use of nonnarcotic pain medication is preferred given her baseline confusion. Anticipate she will return to [facility] upon discharge from the hospital. This is already being addressed by case management. Admission and Anticipated Discharge Date Admission Date: January 23, 2025 Subjective This 89-year-old female is seen today in her room. She is 1 day status post left hip hemiarthroplasty by Dr. Clark. She is pleasantly confused this morning. She is sitting in her bedside chair. She did not remember that she had surgery yesterday. She states her left hip is bothering her some. It is not excruciating. She also notes some pain in her ankles. No other complaints at this time. When asked, she denies any chest pain, shortness of breath, nausea, vomiting, or abdominal pain. Physical Exam Physical Exam: General: Frail, elderly white female, in no acute distress. Sitting in her bedside chair. Alert and calm. Pleasantly confused. She is able to answer questions. Conversive. Skin: Warm and dry with fair turgor. Postsurgical dressing is in place on the left hip. It is dry. Musculoskeletal: Patient has intact motor function of her ankles and toes. She is able to flex and extend her left knee. There is discomfort but no kenan pain with passive hip flexion as well as gentle logrolling. Neurologic: Gross sensation is intact across the left leg by soft touch. Peripheral pulses are 1+. These are equal to the right side. Results & Data Vital Signs (Past 12 Hours) Vital Signs Temp Pulse Resp BP Pulse Ox O2 Del Method O2 Flow Rate 01/25/25 07:12 36.6 C 73 16 162/76 H 95 Room Air 01/25/25 02:25 36.9 C 81 18 160/63 H 93 Nasal Cannula 2 Laboratory Results CBC obtained this morning shows a white count of 7.54. H&H of 10.4 and 30.4. Platelets 164,000. Normal electrolytes today. BUN of 24 with creatinine 0.91. Glucose this morning was 116.
[2025-01-25] MEDS: APIXABAN 2.5 MG TAB PO SCH (12:05)
--- NOTE | 2025-01-25 12:22 | Hospitalist Progress Note ---
"Date of Service January 25, 2025 Assessment & Plan (1) Displaced fracture of left femoral neck: (2) Ground-level fall: Huy Wells is a pleasant 89-year-old woman with past medical history of hypertension, hyperlipidemia, GERD, anxiety, depression, mood disorder cerebral atherosclerosis, fibromyalgia, bilateral sensorineural hearing loss, dementia, asthma, stress incontinence, insomnia, and vitamin D deficiency. She presented to the ED after sustaining a mechanical ground-level fall 2 days prior to admission. No head strike or LOC. No blood thinners. Workup in ED revealed acute mildly comminuted, impacted, angulated, and displaced transcervical left femoral fracture. No acute posttraumatic intrathoracic, intra-abdominal, or intrapelvic abnormalities identified. Chronic T10 compression deformity and age-indeterminate T7 compression deformity that is likely subacute or chronic. She was admitted for management of her left femoral neck fracture. #Left femoral neck fracture | Mechanical ground level fall | Age-related osteoporosis with current pathologic fracture, left femur - May placed in ED on arrival - Orthopedic surgery consulted - s/p left hip cemented hemiarthroplasty 01/[address] Clark. EBL 50 cc. No complications noted - Pain regimen: Scheduled Tylenol 1,000 mg Q8H, morphine 2-4 mg Q3h PRN mod- severe pain - Vitamin D level low at 15.7. Started cholecalciferol 25 mcg daily - continue - Acute blood loss anemia. Hgb stable at 10.4, continue to trend - DVT prophylaxis with Eliquis 2.5 mg BID x 4 weeks, knee-high TEDs and SCDs bilaterally while admitted - PT/OT recommending SNF rehab #Hypoxia - patient does not wear supplemental O2 at baseline, but needed 2 L NC on arrival to maintain O2 sat - Respiratory BioFire negative. CXR unremarkable. Asymptomatic - Incentive spirometer Q1HWA - Supplemental O2 PRN to maintain O2 sat >90%. Now stable on room air #Hypokalemia - now resolved - Mild, K 3.4 on arrival, repleted with oral supplementation, augmented appropriately - Continue home Mag-Ox 400 mg daily #Hypertension | Hyperlipidemiacontinue lisinoprilHCTZ 10-12.5 mg daily - IV Hydralazine PRN with parameters #Asthmacontinue Singulair 5 mcg daily #Vitamin B12 deficiencycontinue cyanocobalamin 500 mg daily #Depression/anxiety | Dementia | Mood disorder continue buspirone 15 mg TID, paroxetine 10 mg daily, trazodone 50 mg HS, propranolol 10 mg BID, clonazepam 0.25 mg daily, fluoxetine 20 mg daily, #Dementiacontinue donepezil 10 mg daily #Chronic rhinitiscontinue azelastine nasal spray 1 spray in each nostril BID VTE PPx: Eliquis 2.5 mg BID Dispo: PT/OT recommending SNF rehab, auth submitted Started Eliquis Discussed discharge plan with case management Admission and Anticipated Discharge Date Admission Date: January 23, 2025 Supervising Physician Co-Signing Physician Notes PA Supervision Note: I did not personally see or examine the patient today, but I verified all marks points of SHARLENE Nick's assessment and plan with the following exceptions/additions: None Subjective Patient seen and evaluated at bedside. She is pleasantly confused, which is her baseline. She has some left hip discomfort but reports this is tolerable. PT/O T evaluated her this morning and are recommending SNF rehab. No additional complaints or concerns at this time. Physical Exam Physical Exam: General: No acute distress, nondiaphoretic. Frail elderly woman. Skin: Warm, dry. No peripheral edema noted. MSK: Expected postoperative discomfort in left lower extremity. Normal motor and sensory function in left lower extremity. Cardiac: Regular rate and rhythm without murmurs gallops or rubs. Pulm: Clear to auscultation bilaterally without wheezes, rales or rhonchi. Normal respiratory effort. 90% on room air Abdominal: Soft, nontender, nondistended. Bowel sounds present. : May catheter draining clear yellow urine. Neuro: A&O x2 (baseline). No focal neurological deficits. Results & Data Results & Data Vital Signs (Past 12 Hours) Vital Signs Temp Pulse Resp BP Pulse Ox O2 Del Method O2 Flow Rate 01/25/25 08:00 Nasal Cannula 2 01/25/25 07:12 97.9 F 73 16 162/76 H 95 Room Air 01/25/25 02:25 98.4 F 81 18 160/63 H 93 Nasal Cannula 2 Laboratory Results Reviewed CBC with differential Reviewed BMP PG Care Time/CCT Total # of Minutes Spent Total Time Spent with Patient: Total time spent is greater than 50% in coordination of care (as documented) at patient's floor/unit and/or counseling patient: Coding Level of Care Code 80936 SUB INP/OBS CARE 50MIN Diagnoses Displaced fracture of left femoral neck S72.002A Ground-level fall W18.30XA"
--- NOTE | 2025-01-25 22:17 | Electrocardiogram Report ---
Test Reason : Blood Pressure : */* mmHG Vent. Rate : 76 BPM Atrial Rate : 76 BPM P-R Int : 138 ms QRS Dur : 78 ms QT Int : 394 ms P-R-T Axes : 48 21 58 degrees QTcB Int : 443 ms Normal sinus rhythm Nonspecific ST abnormality Abnormal ECG When compared with ECG of 27-Mar-2020 15:07, No significant change was found Confirmed by Clement Harris ([id number]) on 01/25/2025 10:17:01 PM Referred By: REFERRED SELF Confirmed By: Clement Harris
[2025-01-26 04:53] VITALS: RESP 16; TEMP 97.9
[2025-01-26 07:53] VITALS: BP 177/78; PULSE 71; O2SAT 95
[2025-01-26 09:36] LABS: Hematocrit (blood only) 29.0 % (37.0-47.0); Hemoglobin 10.0 g/dL (12.0-16.0); Mean Corpuscular Hemoglobin 29.9 pg (25.0-34.0); Mean Corpuscular Volume 86.6 fL (80.0-100.0); Platelet Count 167 K/uL (130-400); RDW Standard Deviation 40.0 fL (36.4-46.3); Red Blood Count 3.35 M/uL (4.20-5.40); White Blood Count 8.30 K/ul (4.8-10.8)
[2025-01-26 09:52] LABS: Anion Gap 8.0 (3-11); Blood Urea Nitrogen 34.0 mg/dl (6-23); Calcium 8.6 mg/dl (8.6-10.3); Carbon Dioxide 24.0 mmol/L (21-32); Chloride 103.0 mmol/L (98-107); Creatinine Clr Calc Pharmacy 48.2 ml/min; Glucose 127.0 mg/dl (70-99(Fasting)); Potassium 3.2 mmol/L (3.5-5.1); Sodium 135.0 mmol/L (136-145)
[2025-01-26] MEDS: POTASSIUM CHLORIDE 20 MEQ/15 ML UDC PO STA (10:26)
[2025-01-26] MEDS: POTASSIUM CHLORIDE CRTAB 20 MEQ TABCR PO STA (10:27)
--- NOTE | 2025-01-26 10:39 | Orthopedic Progress Note ---
Date of Service January 26, 2025 Assessment & Plan (1) Status post hemiarthroplasty of left hip: Plan: Weightbearing as tolerated with walker assistance Total hip precautions reviewed PT/OT Pain control p.o. medication. Use of nonnarcotic pain medication is preferred given her baseline confusion. Eliquis 2.5 mg twice daily x 4 weeks can be used for DVT prophylaxis. Continue with knee-high TERRANCE stockings and SCDs for DVT prophylaxis as well. Apply ice to the hip frequently to reduce pain and swelling, Using easy wrap. Anticipate she will return to [facility] upon discharge from the hospital. Will need a 2-week follow-up with [facility] orthopedics. With questions contact our clinic at [phone] Admission and Anticipated Discharge Date Admission Date: January 23, 2025 Subjective This 89-year-old female is 2 days status post left hip hemiarthroplasty for right femoral neck fracture. Patient seen and evaluated at bedside. She is pleasantly confused. Patient states that she does have some slight discomfort in her hip. She currently has her abduction pillow in place. She states she has been unable to participate with physical therapy. She understands that she will need to go to a rehab facility. Currently she denies chest pain, shortness of breath, fever, chills, sweats, nausea, vomiting, diarrhea or difficulty voiding. Review of Systems Review of Systems: All systems reviewed & are unremarkable except as noted in Subjective Physical Exam Physical Exam: Left hip: Outer dressing was removed. Silverlon is clean dry intact left in place. She tolerates logroll testing. She is unable to perform active straight leg raise test but is able to actively dorsi and plantarflex her foot. Her quad strength is 3 out of 5. She tolerates passive hip flexion to about 75 degrees. She experiences some slight discomfort with light passive internal and external hip rotation. She is neurovascularly intact in the left lower extremity. Results & Data Vital Signs (Past 12 Hours) Vital Signs Temp Pulse Resp BP Pulse Ox O2 Del Method O2 Flow Rate 01/26/25 09:28 Nasal Cannula 2 01/26/25 07:00 36.6 C 71 16 177/78 H 95 Room Air 01/26/25 04:00 36.6 C 73 16 161/81 H 96 Nasal Cannula 2 01/25/25 22:34 Nasal Cannula 2 Diagnostic Findings Laboratory Results WBC 8.30 K/ul (4.8-10.8) 01/26/25 09:23 RBC 3.35 M/uL (4.20-5.40) L 01/26/25 09:23 Hgb 10.0 g/dL (12.0-16.0) L 01/26/25 09:23 Hct 29.0 % (37.0-47.0) L 01/26/25 09:23 MCV 86.6 fL (80.0-100.0) 01/26/25 09:23 MCH 29.9 pg (25.0-34.0) 01/26/25 09: MCHC 34.5 g/dL (32.0-36.0) 01/26/25 09: RDW Std Deviation 40.0 fL (36.4-46.3) 01/26/25 09: RDW Coeff of Mariel[place] 12.9 % (11.5-14.5) 01/26/25 09: Plt Count 167 K/uL (130-400) 01/26/25 09:23 MPV 10.5 fL (9.4-12.4) 01/26/25 09:23 Immature Gran % (Auto) 0.7 % 01/25/25 05:37 Neut % (Auto) 72.8 % 01/25/25 05:37 Lymph % (Auto) 12.7 % 01/25/25 05:37 [place] % (Auto) 8.8 % 01/25/25 05:37 Eos % (Auto) 4.6 % 01/25/25 05:37 Baso % (Auto) 0.4 % 01/25/25 05:37 Neut # (Auto) 5.49 K/uL (1.40-6.50) 01/25/25 05:37 Lymph # (Auto) 0.96 K/uL (1.20-3.40) L 01/25/25 05:37 [place] # (Auto) 0.66 K/uL (0.11-0.59) H 01/25/25 05:37 Eos # (Auto) 0.35 K/uL (0.00-0.50) 01/25/25 05:37 Baso # (Auto) 0.03 K/uL (0.00-0.20) 01/25/25 05:37 Immature Gran # (Auto) 0.05 K/uL (0.01-0.20) 01/25/25 05:37 Sodium 135 mmol/L (136-145) L 01/26/25 09:23 Potassium 3.2 mmol/L (3.5-5.1) L 01/26/25 09:23 Chloride 103 mmol/L (98-107) 01/26/25 09:23 Carbon Dioxide 24 mmol/L (21-32) 01/26/25 09:23 Anion Gap 8 (3-11) 01/26/25 09:23 BUN 34 mg/dl (6-23) H 01/26/25 09:23 Creatinine 0.74 mg/dl (0.6-1.2) 01/26/25 09:23 Est Cr Clr Drug Dosing 48.2 ml/min 01/26/25 09:23 eGFR 78.26 01/26/25 09:23 BUN/Creatinine Ratio 45.9 (10-20) H 01/26/25 09:23 Glucose 127 mg/dl (70-99(Fasting)) H 01/26/25 09:23 Calcium 8.6 mg/dl (8.6-10.3) 01/26/25 09:23 Total Bilirubin 0.7 mg/dl (0.2-1.0) 01/23/25 11:45 AST 16 U/L (13-39) 01/23/25 11:45 ALT 8 U/L (7-52) 01/23/25 11:45 Alkaline Phosphatase 59 U/L (34-104) 01/23/25 11:45 Troponin I High Sens 13.5 pg/ml (0-14) 01/23/25 11:45 Total Protein 7.3 gm/dl (6.0-8.3) 01/23/25 11:45 Albumin 4.4 gm/dl (3.4-5.0) 01/23/25 11:45 Globulin 2.9 gm/dl (2.5-4.0) 01/23/25 11:45 Albumin/Globulin Ratio 1.5 (0.9-2) 01/23/25 11:45 25-OH Vitamin D Total 15.7 ng/ml (30-100) L 01/24/25 06:26 Nasal Screen MRSA (PCR) Positive (Negative) A 01/23/25 Unknown Adenovirus (PCR) Not Detected (NotDetected) 01/23/25 12:50 B. pertussis DNA (PCR) Not Detected (NotDetected) 01/23/25 12:50 B.parapertussis DNA PCR Not Detected (NotDetected) 01/23/25 12:50 C. pneumoniae DNA (PCR) Not Detected (NotDetected) 01/23/25 12:50 Coronavirus OC43 (PCR) Not Detected (NotDetected) 01/23/25 12:50 Coronavirus HKU1 (PCR) Not Detected (NotDetected) 01/23/25 12:50 Coronavirus 229E (PCR) Not Detected (NotDetected) 01/23/25 12:50 SARS-CoV-2 (PCR) Not Detected (NotDetected) 01/23/25 12:50 Coronavirus NL63 (PCR) Not Detected (NotDetected) 01/23/25 12:50 Human Metapneumovir PCR Not Detected (NotDetected) 01/23/25 12:50 Influenza Type A (PCR) Not Detected (NotDetected) 01/23/25 12:50 Influenza Type B (PCR) Not Detected (NotDetected) 01/23/25 12:50 M. pneumoniae (PCR) Not Detected (NotDetected) 01/23/25 12:50 Parainfluenza 1 (PCR) Not Detected (NotDetected) 01/23/25 12:50 Parainfluenza 2 (PCR) Not Detected (NotDetected) 01/23/25 12:50 Parainfluenza 3 (PCR) Not Detected (NotDetected) 01/23/25 12:50 Parainfluenza 4 (PCR) Not Detected (NotDetected) 01/23/25 12:50 RSV (PCR) Not Detected (NotDetected) 01/23/25 12:50 Entero/Rhino (PCR) Not Detected (NotDetected) 01/23/25 12:50 Impressions Abdomen/Pelvis CT 01/23/25 11:26 CT angio chest PE protocol, CT abd pelvis IV con only HISTORY: 89 years-old Female with PE. CT chest abdominal pain status post fall TECHNIQUE: Multiple CTA images of the chest were obtained after the intravenous administration of 119 ml Optiray. Coronal and sagittal MIPS were obtained from the axial data set and were submitted for review. All measurements were obtained according to NASCET criteria. CT abdomen and pelvis with IV contrast only also obtained. A dose lowering technique was utilized adhering to the principles of ALARA. COMPARISON: Chest CT 08/30/2019, CT abdomen and pelvis 07/12/2015 and also March 27, 2020, radiograph of the pelvis and left hip with same day FINDINGS: CTA: Moderate cardiomegaly without pericardial effusion. Moderate coronary artery calcifications. Atherosclerosis of the aorta without aneurysm. Patency of the imaged great vessels. No pulmonary emboli are seen. CT CHEST: Multinodular thyroid with largest conglomerate nodule in the left measuring up to 5.4 cm, previously 4 cm. Partially calcified mediastinal and right hilar lymphadenopathy again noted compatible with prior granulomatous disease. No pneumothorax, pleural effusion or overt pulmonary edema. There are a few scattered benign calcified pulmonary granulomata are noted. Mild dependent subsegmental bibasilar atelectasis. No suspicious pulmonary nodules or masses. Central airways are patent. Unremarkable soft tissues. Degenerative changes of the spine and shoulders. No acute fracture identified. Scattered vertebral body hemangiomata noted within the thoracic spine. Mild chronic wedge deformity at T10. Mild 20% T7 compression deformity is new from prior without retropulsion CT ABDOMEN/PELVIS: Calcified granulomata of the liver and spleen. No pneumatosis or pneumoperitoneum. Unremarkable pancreas, adrenal glands, and gallbladder. Patency of the hepatic and portal veins. 11 mm peripherally calcified splenic artery aneurysm is unchanged. Mild cortical thinning of the kidneys without hydronephrosis. Atherosclerosis of the aorta without aneurysm. No lymphadenopathy. Duodenal diverticulum. Colonic diverticulosis without acute diverticulitis. No bowel obstruction or bowel wall thickening. Demineralized appearance to the bones. There is an acute, comminuted, impacted, angulated and mildly displaced fracture involving the mid aspect of the left femoral neck. Mild to moderate osteoarthritis of the hips. Deep tissue edema/hemorrhage surrounds the acute left hip fracture. No additional acute fracture identified. IMPRESSION: 1. Acute, mildly comminuted, impacted, angulated and displaced transcervical left femoral fracture. 2. No acute posttraumatic intrathoracic, intra-abdominal or intrapelvic abnormality identified. 3. Chronic T10 compression deformity with mild age-indeterminate T7 compression deformity which is new from 2019, also likely subacute or chronic. 4. Thyroid goiter. 5. Incidental findings as above. ACT 112: Negative or not required by law. The above report was generated using voice recognition software. It may contain grammatical, syntax or spelling errors. Electronically signed by: Clinton Larkin M.D. 01/23/2025 12:59 PM Chest CTA 01/23/25 11:26 CT angio chest PE protocol, CT abd pelvis IV con only HISTORY: 89 years-old Female with PE. CT chest abdominal pain status post fall TECHNIQUE: Multiple CTA images of the chest were obtained after the intravenous administration of 119 ml Optiray. Coronal and sagittal MIPS were obtained from the axial data set and were submitted for review. All measurements were obtained according to NASCET criteria. CT abdomen and pelvis with IV contrast only also obtained. A dose lowering technique was utilized adhering to the principles of ALARA. COMPARISON: Chest CT 08/30/2019, CT abdomen and pelvis 07/12/2015 and also March 27, 2020, radiograph of the pelvis and left hip with same day FINDINGS: CTA: Moderate cardiomegaly without pericardial effusion. Moderate coronary artery calcifications. Atherosclerosis of the aorta without aneurysm. Patency of the imaged great vessels. No pulmonary emboli are seen. CT CHEST: Multinodular thyroid with largest conglomerate nodule in the left measuring up to 5.4 cm, previously 4 cm. Partially calcified mediastinal and right hilar lymphadenopathy again noted compatible with prior granulomatous disease. No pneumothorax, pleural effusion or overt pulmonary edema. There are a few scattered benign calcified pulmonary granulomata are noted. Mild dependent subsegmental bibasilar atelectasis. No suspicious pulmonary nodules or masses. Central airways are patent. Unremarkable soft tissues. Degenerative changes of the spine and shoulders. No acute fracture identified. Scattered vertebral body hemangiomata noted within the thoracic spine. Mild chronic wedge deformity at T10. Mild 20% T7 compression deformity is new from prior without retropulsion CT ABDOMEN/PELVIS: Calcified granulomata of the liver and spleen. No pneumatosis or pneumoperitoneum. Unremarkable pancreas, adrenal glands, and gallbladder. Patency of the hepatic and portal veins. 11 mm peripherally calcified splenic artery aneurysm is unchanged. Mild cortical thinning of the kidneys without hydronephrosis. Atherosclerosis of the aorta without aneurysm. No lymphadenopathy. Duodenal diverticulum. Colonic diverticulosis without acute diverticulitis. No bowel obstruction or bowel wall thickening. Demineralized appearance to the bones. There is an acute, comminuted, impacted, angulated and mildly displaced fracture involving the mid aspect of the left femoral neck. Mild to moderate osteoarthritis of the hips. Deep tissue edema/hemorrhage surrounds the acute left hip fracture. No additional acute fracture identified. IMPRESSION: 1. Acute, mildly comminuted, impacted, angulated and displaced transcervical left femoral fracture. 2. No acute posttraumatic intrathoracic, intra-abdominal or intrapelvic abnormality identified. 3. Chronic T10 compression deformity with mild age-indeterminate T7 compression deformity which is new from 2019, also likely subacute or chronic. 4. Thyroid goiter. 5. Incidental findings as above. ACT 112: Negative or not required by law. The above report was generated using voice recognition software. It may contain grammatical, syntax or spelling errors. Electronically signed by: Clinton Larkin M.D. 01/23/2025 12:59 PM Hip/Pelvis X-Ray 01/23/25 11:26 XR hip LT 2V w pelvis CLINICAL HISTORY: fall, left hip pain COMPARISON: 10/01/2014 FINDINGS: There is an acute mildly displaced fracture at the left femoral neck with mild proximal migration of the distal fragment. No other fracture or dislocation seen at the pelvis or hips. IMPRESSION: Acute fracture left femoral neck. ACT 112: Negative or not required by law. Electronically signed by: Jimmy Drake M.D. 01/23/2025 12:47 PM Chest X-Ray 01/23/25 11:31 XR chest 1V portable HISTORY: 89 years-old Female fall, SOB acute shortness breath with chest pain COMPARISON: CTA chest of same day, chest radiograph 03/27/2020 TECHNIQUE: AP view of the chest FINDINGS: Cardiac silhouette is enlarged. Mild right hemidiaphragmatic elevation. Chronic interstitial coarsening without pneumothorax, pleural effusion or overt pulmonary edema. The bones of the chest appear grossly intact. IMPRESSION: Cardiomegaly without acute process. ACT 112: Negative or not required by law. The above report was generated using voice recognition software. It may contain grammatical, syntax or spelling errors. Electronically signed by: Clinton Larkin M.D. 01/23/2025 2:19 PM Pelvis X-Ray 01/24/25 16:02 INDICATION: Pain. Postoperative evaluation. TECHNIQUE: Frontal pelvic radiograph was obtained. COMPARISON: None FINDINGS: Postoperative changes of recent left hip arthroplasty with components in anatomic alignment. Expected postoperative changes are present in the surrounding soft tissues IMPRESSION: Left hip arthroplasty with components in anatomic alignment. Expected postoperative changes of the soft tissues. Electronically signed by Lavon Christianson 01-24-2025 5:11 PM
--- NOTE | 2025-01-26 11:44 | Discharge Summary ---
Discharge Summary Date of Service January 26, 2025 Principal Dx & Hospital Course #1 = Principal Diagnosis (1) Displaced fracture of left femoral neck: (2) Ground-level fall: Huy Wells is a pleasant 89-year-old woman with past medical history of hypertension, hyperlipidemia, GERD, anxiety, depression, mood disorder cerebral atherosclerosis, fibromyalgia, bilateral sensorineural hearing loss, dementia, asthma, stress incontinence, insomnia, and vitamin D deficiency. She presented to the ED after sustaining a mechanical ground-level fall 2 days prior to admission. No head strike or LOC. No blood thinners. Workup in ED revealed acute mildly comminuted, impacted, angulated, and displaced transcervical left femoral fracture. No acute posttraumatic intrathoracic, intra-abdominal, or intrapelvic abnormalities identified. Chronic T10 compression deformity and age-indeterminate T7 compression deformity that is likely subacute or chronic. She was admitted for management of her left femoral neck fracture. #Left femoral neck fracture | Mechanical ground level fall | Age-related osteoporosis with current pathologic fracture, left femur - May placed in ED on arrival, it has since been removed with no urination issues - Orthopedic surgery consulted - s/p left hip cemented hemiarthroplasty 01/[address] Clark. EBL 50 cc. No complications noted - Tylenol PRN for pain. She did not require any narcotic pain control - Vitamin D level low at 15.7. Started cholecalciferol 25 mcg daily - continue - Acute blood loss anemia secondary to fracture/surgical intervention. Hgb stable at 10.0 - Start ferrous sulfate 325 mg daily x 1 month for surgery related blood loss - DVT prophylaxis with Eliquis 2.5 mg BID x 4 weeks, knee-high TEDs and SCDs bilaterally while admitted - PT/OT recommended SNF rehab #Hypoxia - patient does not wear supplemental O2 at baseline, but needed 2 L NC on arrival to maintain O2 sat - Respiratory BioFire negative. CXR unremarkable. Asymptomatic - Incentive spirometer Q1HWA - Supplemental O2 PRN to maintain O2 sat >90%. Now stable on room air #Hypokalemia - now resolved - Mild, K 3.2 on day of discharge - repleted with KCl 40 mEq PO x 1 - Continue home Mag-Ox 400 mg daily #Hypertension | Hyperlipidemiacontinue lisinoprilHCTZ 10-12.5 mg daily - IV Hydralazine PRN with parameters #Asthmacontinue Singulair 5 mcg daily #Vitamin B12 deficiencycontinue cyanocobalamin 500 mg daily #Depression/anxiety | Dementia | Mood disorder continue buspirone 15 mg TID, paroxetine 10 mg daily, trazodone 50 mg HS, propranolol 10 mg BID, clonazepam 0.25 mg daily, fluoxetine 20 mg daily, #Dementiacontinue donepezil 10 mg daily #Chronic rhinitiscontinue azelastine nasal spray 1 spray in each nostril BID VTE PPx: Eliquis 2.5 mg BID Dispo: Discharged to [facility] 01/26 Notes For Next Care Provider Medication Changes From Visit Cholecalciferol increased to 25 mcg daily Started Eliquis 2.5 mg twice daily x 1 month for DVT prophylaxis Started ferrous sulfate 325 mg once daily x 1 month for surgery related blood loss Admission HPI Per Admitting Provider Priscilla is a pleasant 89-year-old woman with past medical history of hypertension, hyperlipidemia, GERD, anxiety, cerebral atherosclerosis, fibromyalgia, bilateral sensorineural hearing loss, dementia, asthma, stress incontinence, insomnia, and vitamin D deficiency. She presented from [facility] with left hip pain. At the time of my exam, the patient was lying in bed in no acute distress with her family present at bedside. History is obtained from both patient, family members, and ED provider as patient has baseline dementia. 2 days prior to presentation, patient sustained a ground-level mechanical fall. There was no head strike or loss of consciousness. She does not take blood thinners. Priscilla reports she got out of bed in the middle of the night and tripped, resulting in a fall. She denies any lightheadedness or dizziness prior to her fall. For the past 2 days, she has not bared weight on her left lower extremity secondary to pain. She reports a constant aching pain in her left hip/groin that radiates down her left leg. She denies any paresthesias. Additionally on initial presentation, she was placed on supplemental O2 at 2 L NC. She does not require supplemental oxygen at baseline. She denies dyspnea, cough, sinus congestion, headache, sore throat. She denies recent sick contacts. Vitals on admission significant for elevated BP at 165/89 and supplemental O2 at 2 L NC; vitals otherwise stable. Labs on admission are overall unremarkable. CBC without leukocytosis, stable H&H and platelets. Mild hypokalemia with potassium 3.4. Other electrolytes WNL. Renal function WNL. Liver enzymes WNL. Troponin WNL at 13.5. Respiratory bio fire negative. CT A/P on admission reveals acute, mildly comminuted, impacted, angulated and displaced transcervical left femoral fracture. No acute posttraumatic intrathoracic, intra-abdominal or intrapelvic abnormality identified. Chronic T10 compression deformity with mild age indeterminant T7 compression deformity likely subacute or chronic. Left hip/pelvis x-ray reveals acute fracture of left femoral neck. CXR notes cardiomegaly without acute process. Chest CTA unremarkable. We discussed code status, patient wishes to be a full code. Her living will outlines a DNR/DNI code status per report of her niece at bedside, however Priscilla is clear that she would like to be a full code at this time. Discharge Exam General: No acute distress, nondiaphoretic. Frail elderly woman. Skin: Warm, dry. No peripheral edema noted. MSK: Expected postoperative discomfort in left lower extremity. Dressing over left hip clean dry and intact. Normal motor and sensory function in left lower extremity. Cardiac: Regular rate and rhythm without murmurs gallops or rubs. Pulm: Diminished in bases but otherwise clear to auscultation bilaterally without wheezes, rales or rhonchi. Normal respiratory effort. Abdominal: Soft, nontender, nondistended. Bowel sounds present. Neuro: A&O x2 (baseline). No focal neurological deficits. Discharge Plan Discharge Items Patient Disposition: Transfer [facility] Reason For Visit: FALL,L FEM NECK FX Discharge Diagnosis: Mechanical ground-level fall with left femoral neck fracture s/p left hip cemented hemiarthroplasty Condition on Discharge: Good Activity: Per Instructions section Lifting: Wait until after follow-up appointment Bathing: Keep incision dry Exercise/Sports: Wait until after follow-up appointment Weightbearing: Full weightbearing Non-emergency contact: Primary Care Provider and Surgeon Call non-emergency contact if: you have any medication questions, your symptoms worsen, your pain is not controlled, your temperature is above 101, your wound has increased redness, your wound has increased drainage and your wound pain has increased Follow-up/Referrals: [facility] [Primary Care Provider] - (Follow-up in 1-2 weeks) Salbador Villalta PA [Physician Information Systems Auditor] - 12/03/25 2:00 pm Diet: Regular Diet Texture: Easy to Chew Raimundo Attending Provider Instructions: Kenneth Wells were admitted to the hospital after a fall resulted in a left femoral neck fracture. You had this surgically repaired with a left hip hemiarthroplasty on 01/[address] Clark. You tolerated this procedure well with no complications. You are being discharged to [facility] for postoperative rehab. Upon discharge from the hospital: * Take Eliquis (blood thinner) 2.5 mg twice daily x 1 month. This will serve as your DVT prophylaxis to prevent blood clots from forming postoperatively. * Take ferrous sulfate (oral iron supplementation) 325 mg daily x 1 month. This is to help replace the blood loss during surgery. * Take Tylenol as needed for pain. You have not required any stronger pain medications in your postoperative period so no narcotic pain medications were prescribed on discharge. * Take MiraLAX once daily as needed for constipation. Oral iron supplementation can cause constipation so monitor for this. * Your Vitamin D supplementation was increased to 25 mcg daily - continue this. * Continue your other home medications as prescribed. * Follow the additional instructions from your orthopedic team listed below. * Follow-up with orthopedics as scheduled on 02/07/2025 at 2:00 PM. * Follow-up with your PCP in 1-2 weeks. Please return to the hospital if you experience any of the following: Severe uncontrolled pain, chest pain, difficulty breathing, new or worsening confusion, passing out, inability to tolerate oral intake, or any other symptoms concerning for you. It was a pleasure taking care of you while you were in the hospital! Raimundo Nozzle Operator Provider Instructions: New Medicine: * You will likely be taking one or more of these medicines: 1. Iron Sulfate - Take 1x each day for the month after surgery to help you replace the blood lost during surgery. 3. Eliquis - Thins your blood to lessen the chance of forming a blood clot. * The most common side effects of pain medicine and iron are nausea and constipation. If nausea or constipation is too much of a problem or if you have any questions about your new medicines or doses, call [facility] at . We will try to help you manage these issues. "VERY IMPORTANT TO READ AND REVIEW" Blood Clots and Blood Thinning Medicine: * You are given Eliquis during the immediate post-operative period to lessen the risk of blood clots forming in your legs and/or lungs. It is usually given for 4 weeks after surgery. Pain: * The immediate post-operative period after hip replacement surgery is often quite painful. * You are given a prescription for pain medicine. You should take it, as directed, when you need it, especially before physical therapy and before going to bed. Pain that interferes with sleep is very common and can last several months. * You will likely need pain medicine for the first two to four weeks. It will not stop all of the pain. The pain will lessen and as you feel better, you may change to milder pain medicine such as Tylenol. * The most common side effects of pain medicine are nausea and constipation, so don't take more than you need. Physical Therapy: * Follow the "Hip Precautions Instructions." * In some cases, the manager social media at the hospital will arrange to have a therapist come to your house for the first couple of weeks to help you learn these skills. * You need to practice on your own or with the help of a family member as needed. * When you learn these skills, most of the therapy can be done on your own. Home Exercise: * You were shown a series of exercises in the hospital. Do these exercises three to four times each day including the exercises you were shown in physical therapy. Walking: * Get up and walk several times each day. For the first four weeks, try not to stand or walk for more than one hour at a time. If you do stand or walk for more than one hour, you will not hurt anything, but your leg will likely swell. * As you feel comfortable, you may change from the walker or crutches to a cane and then to independent walking. SELF CARE INSTRUCTIONS AFTER TOTAL HIP REPLACEMENT Until the incision and soft tissues around your hip have healed, there is a possibility that the hip prosthesis could dislocate. A. Observe the following precautions to prevent dislocation: 1. Don't bend your hip greater than 90 degrees. 2. Avoid crossing your legs or ankles while standing or lying. 3. Sit with your feet placed 6 inches apart. 4. When sitting, keep your knees below your hips. Sit on a firm surface, avoid deep, soft chairs and couches. Use an elevated toilet seat in the bathroom. 5. Don't bend over at the waist. Use a long handled shoehorn and a sock aid to help you put on your shoes and socks. A automatic stacker can help you vegetable picker objects that are too high or too low to reach. 6. Keep car riding to a minimum for at least one month after surgery. B. Your balance may be shaky for a while. Use crutches or a walker until directed by your doctor. C. Use hand rails when walking on stairs. D. Wear low heeled shoes with non-slip soles. E. Be sure that your floors are free of things that could trip you - throw rugs, electrical cords, small objects. Avoid wet and waxed floors, especially with crutches and canes. F. Try to walk several times a day with rest periods between. G. Continue with all the exercises taught to you in the hospital. Again, make walking a part of your daily routine. VERY IMPORTANT TO READ AND REVIEW A. Take Eliquis (blood thinning medication) as directed by your doctor. B. There are a few signs you need to watch for after you are home. If you notice any of the followin. Increased severe hip pain. Some pain is expected especially when you exercise. 2. Increased swelling in your leg or knee; pain or swelling of the calf muscle in either lower leg. 3. Any fluid drainage from the incision. 4. Shortness of breath or chest pain. TEDs/Elastic Stockings: * The white elastic stockings help limit swelling and prevent blood clots from forming in your legs. The more you wear them, the more they work. * Wear them for six weeks. Prevention of Infection: * Take antibiotics one hour before any dental cleaning, dental work, urological procedure, gastrointestinal procedure or any invasive surgery in order to prevent your new joint from getting infected. * You may get the antibiotics from the doctor performing the procedure or we will call in a prescription to the pharmacy of your choice. Call the office for a prescription at least 2 days prior to your appointment. Diet: * You may return to previous diet. Things to Watch For: * Drainage from the incision site that occurs more than one week after your surgery. * Severely increased leg pain or swelling. * Increased redness at the incision site. * Fever above 101 degrees Fahrenheit. * Unusual chest pain or shortness of breath. * Unusual pain or burning with urination. Use the wedge pillow between the knees when sleeping for the next 4 weeks Pending Studies at Discharge: No Stand-Alone Forms: [facility] Skilled Items Patient informed of condition?: Yes DNR: No Discharge Level of Care: Skilled Communicable Disease: No Discharge Prognosis: Stable Lines: None Urinary Catheter: No Medications and DC Order Prescriptions: New Eliquis 2.5 mg Tablet 2.5 mg PO BID Qty: 60 0RF polyethylene glycol 3350 [Miralax] 17 gram Powder In Packet 17 g PO DAILY PRN (Reason: constipation) Qty: 30 0RF cholecalciferol (vitamin D3) 25 mcg (1,000 unit) Capsule 25 mcg PO QAM Qty: 30 0RF Continued lisinopril-hydrochlorothiazide 10-12.5 mg tablet 1 tab PO QAM Qty: 90 3RF metoprolol succinate 25 mg tablet extended release 24 hr 25 mg PO DAILY Qty: 90 3RF Patient Comments: pt takes in am montelukast [Singulair] 5 mg tablet,chewable 5 mg PO DAILY Qty: 90 3RF simvastatin 10 mg tablet 10 mg PO QPM Qty: 90 3RF trazodone 100 mg tablet 100 mg PO HS venlafaxine [Effexor XR] 150 mg capsule,extended release 24hr 150 mg PO QAM cyanocobalamin (vitamin B-12) 500 mcg tablet 500 mcg PO QAM Rx Instructions: PT COULD NOT VERIFY IF STILL TAKING/USING THIS MEDICATION buspirone 7.5 mg tablet 7.5 mg PO BID Systane Balance 0.6 % drops 1 drp OPHTHALMIC (EYE) Q6H PRN (Reason: Dry Eye(S)) Rx Instructions: PT COULD NOT VERIFY IF STILL TAKING/USING THIS MEDICATION docusate sodium 100 mg Capsule 100 mg PO BID Qty: 60 0RF triamcinolone acetonide 0.1 % cream 1 applic TOPICAL BID PRN (Reason: Rash) Rx Instructions: APPLY A THIN FILM TOPICALLY TO RASH ON ARMS, LEGS AND BACK PT COULD NOT VERIFY IF STILL TAKING/USING THIS MEDICATION magnesium hydroxide [Milk of Magnesia] 400 mg/5 mL suspension 5 ml PO DAILY PRN (Reason: Stomach Upset) Rx Instructions: PT COULD NOT VERIFY IF STILL TAKING/USING THIS MEDICATION donepezil 5 mg Tablet 5 mg PO DAILY bisacodyl [Dulcolax (bisacodyl)] 10 mg Suppository 10 mg VA DAILY PRN (Reason: Constipation) Fleet Enema 19-7 gram/118 mL Enema 118 ml VA DAILY PRN (Reason: Constipation) fluticasone propion-salmeterol [Advair Diskus] 100-50 mcg/dose Blister With Device 1 inh INHALATION BID acetaminophen [Tylenol] 325 mg Capsule 325 mg PO QID PRN (Reason: Pain) diclofenac sodium 1 % Gel 2 g TOPICAL QID PRN (Reason: Pain) guaifenesin [Mucinex] 600 mg Tablet Extended Release 12hr 600 mg PO BID PRN (Reason: Congestion) clonazepam 0.5 mg tablet 0.5 mg PO DAILY PRN (Reason: Anxiety) Discontinued cholecalciferol (vitamin D3) 400 unit tablet 400 unit PO QAM Rx Instructions: PT COULD NOT VERIFY IF STILL TAKING/USING THIS MEDICATION Discharge Orders: Discharge Order (Routine); Ordered 01/26/25 Ordered By: Annalise Nick Admission Data Admit Date/Time: 01/23/25 14:08 Attending Provider: Lizeth Qiu Admit Provider: Annalise Brown [facility]: [facility] Other Providers: [facility]; Annalise Brown; Bhargav Clark Other Interventions: Discharge Summary Assessment (RN) Last Done: 01/26/25 11:28 Hospital Stay Data Consultations 01/23/25 13:47 ED Decision to Admit Stat 01/23/25 16:37 Consult Orthopedic Surgery Routine Procedures Performed Operation Date: 01/24/25 13:50 Actual Procedures p Left Hip Cemented Hemiarthroplasty(Left) - Bhargav Clark MD Diagnostic Imagining Performed Abdomen/Pelvis CT 01/23/25 11:26 CT angio chest PE protocol, CT abd pelvis IV con only HISTORY: 89 years-old Female with PE. CT chest abdominal pain status post fall TECHNIQUE: Multiple CTA images of the chest were obtained after the intravenous administration of 119 ml Optiray. Coronal and sagittal MIPS were obtained from the axial data set and were submitted for review. All measurements were obtained according to NASCET criteria. CT abdomen and pelvis with IV contrast only also obtained. A dose lowering technique was utilized adhering to the principles of ALARA. COMPARISON: Chest CT 08/30/2019, CT abdomen and pelvis 07/12/2015 and also March 27, 2020, radiograph of the pelvis and left hip with same day FINDINGS: CTA: Moderate cardiomegaly without pericardial effusion. Moderate coronary artery calcifications. Atherosclerosis of the aorta without aneurysm. Patency of the imaged great vessels. No pulmonary emboli are seen. CT CHEST: Multinodular thyroid with largest conglomerate nodule in the left measuring up to 5.4 cm, previously 4 cm. Partially calcified mediastinal and right hilar lymphadenopathy again noted compatible with prior granulomatous disease. No pneumothorax, pleural effusion or overt pulmonary edema. There are a few scattered benign calcified pulmonary granulomata are noted. Mild dependent subsegmental bibasilar atelectasis. No suspicious pulmonary nodules or masses. Central airways are patent. Unremarkable soft tissues. Degenerative changes of the spine and shoulders. No acute fracture identified. Scattered vertebral body hemangiomata noted within the thoracic spine. Mild chronic wedge deformity at T10. Mild 20% T7 compression deformity is new from prior without retropulsion CT ABDOMEN/PELVIS: Calcified granulomata of the liver and spleen. No pneumatosis or pneu moperitoneum. Unremarkable pancreas, adrenal glands, and gallbladder. Patency of the hepatic and portal veins. 11 mm peripherally calcified splenic artery aneurysm is unchanged. Mild cortical thinning of the kidneys without hydronephrosis. Atherosclerosis of the aorta without aneurysm. No lymphadenopathy. Duodenal diverticulum. Colonic diverticulosis without acute diverticulitis. No bowel obstruction or bowel wall thickening. Demineralized appearance to the bones. There is an acute, comminuted, impacted, angulated and mildly displaced fracture involving the mid aspect of the left femoral neck. Mild to moderate osteoarthritis of the hips. Deep tissue edema/hemorrhage surrounds the acute left hip fracture. No additional acute fracture identified. IMPRESSION: 1. Acute, mildly comminuted, impacted, angulated and displaced transcervical left femoral fracture. 2. No acute posttraumatic intrathoracic, intra-abdominal or intrapelvic abnormality identified. 3. Chronic T10 compression deformity with mild age-indeterminate T7 compression deformity which is new from 2019, also likely subacute or chronic. 4. Thyroid goiter. 5. Incidental findings as above. ACT 112: Negative or not required by law. The above report was generated using voice recognition software. It may contain grammatical, syntax or spelling errors. Electronically signed by: Clinton Larkin M.D. 01/23/2025 12:59 PM Chest CTA 01/23/25 11:26 CT angio chest PE protocol, CT abd pelvis IV con only HISTORY: 89 years-old Female with PE. CT chest abdominal pain status post fall TECHNIQUE: Multiple CTA images of the chest were obtained after the intravenous administration of 119 ml Optiray. Coronal and sagittal MIPS were obtained from the axial data set and were submitted for review. All measurements were obtained according to NASCET criteria. CT abdomen and pelvis with IV contrast only also obtained. A dose lowering technique was utilized adhering to the lokesh nciples of BRANDI. COMPARISON: Chest CT 08/30/2019, CT abdomen and pelvis 07/12/2015 and also March 27, 2020, radiograph of the pelvis and left hip with same day FINDINGS: CTA: Moderate cardiomegaly without pericardial effusion. Moderate coronary artery calcifications. Atherosclerosis of the aorta without aneurysm. Patency of the imaged great vessels. No pulmonary emboli are seen. CT CHEST: Multinodular thyroid with largest conglomerate nodule in the left measuring up to 5.4 cm, previously 4 cm. Partially calcified mediastinal and right hilar lymphadenopathy again noted compatible with prior granulomatous disease. No pneumothorax, pleural effusion or overt pulmonary edema. There are a few scattered benign calcified pulmonary granulomata are noted. Mild dependent subsegmental bibasilar atelectasis. No suspicious pulmonary nodules or masses. Central airways are patent. Unremarkable soft tissues. Degenerative changes of the spine and shoulders. No acute fracture identified. Scattered vertebral body hemangiomata noted within the thoracic spine. Mild chronic wedge deformity at T10. Mild 20% T7 compression deformity is new from prior without retropulsion CT ABDOMEN/PELVIS: Calcified granulomata of the liver and spleen. No pneumatosis or pneumoperitoneum. Unremarkable pancreas, adrenal glands, and gallbladder. Patency of the hepatic and portal veins. 11 mm peripherally calcified splenic artery aneurysm is unchanged. Mild cortical thinning of the kidneys without hydronephrosis. Atherosclerosis of the aorta without aneurysm. No lymphadenopathy. Duodenal diverticulum. Colonic diverticulosis without acute diverticulitis. No bowel obstruction or bowel wall thickening. Demineralized appearance to the bones. There is an acute, comminuted, impacted, angulated and mildly displaced fracture involving the mid aspect of the left femoral neck. Mild to moderate osteoarthritis of the hips. Deep tissue edema/hemorrhage surrounds the acute left hip fracture. No additional acute fracture identified. IMPRESSION: 1. Acute, mildly comminuted, impacted, angulated and displaced transcervical left femoral fracture. 2. No acute posttraumatic intrathoracic, intra-abdominal or intrapelvic abnormality identified. 3. Chronic T10 compression deformity with mild age-indeterminate T7 compression deformity which is new from 2019, also likely subacute or chronic. 4. Thyroid goiter. 5. Incidental findings as above. ACT 112: Negative or not required by law. The above report was generated using voice recognition software. It may contain grammatical, syntax or spelling errors. Electronically signed by: Clinton Larkin M.D. 01/23/2025 12:59 PM Hip/Pelvis X-Ray 01/23/25 11:26 XR hip LT 2V w pelvis CLINICAL HISTORY: fall, left hip pain COMPARISON: 10/01/2014 FINDINGS: There is an acute mildly displaced fracture at the left femoral neck with mild proximal migration of the distal fragment. No other fracture or dislocation seen at the pelvis or hips. IMPRESSION: Acute fracture left femoral neck. ACT 112: Negative or not required by law. Electronically signed by: Jimmy Drake M.D. 01/23/2025 12:47 PM Chest X-Ray 01/23/25 11:31 XR chest 1V portable HISTORY: 89 years-old Female fall, SOB acute shortness breath with chest pain COMPARISON: CTA chest of same day, chest radiograph 03/27/2020 TECHNIQUE: AP view of the chest FINDINGS: Cardiac silhouette is enlarged. Mild right hemidiaphragmatic elevation. Chronic interstitial coarsening without pneumothorax, pleural effusion or overt pulmonary edema. The bones of the chest appear grossly intact. IMPRESSION: Cardiomegaly without acute process. ACT 112: Negative or not required by law. The above report was generated using voice recognition software. It may contain grammatical, syntax or spelling errors. Electronically signed by: Clinton Larkin M.D. 01/23/2025 2:19 PM Pelvis X-Ray 01/24/25 16:02 INDICATION: Pain. Postoperative evaluation. TECHNIQUE: Frontal pelvic radiograph was obtained. COMPARISON: None FINDINGS: Postoperative changes of recent left hip arthroplasty with components in anatomic alignment. Expected postoperative changes are present in the surrounding soft tissues IMPRESSION: Left hip arthroplasty with components in anatomic alignment. Expected postoperative changes of the soft tissues. Electronically signed by Lavon Christianson 01-24-2025 5:11 PM Pending Results Patient Have Any Pending Studies at Discharge: No Discharge Instructions Given to Patient (Per Discharging Provider) Kenneth Wells were admitted to the hospital after a fall resulted in a left femoral neck fracture. You had this surgically repaired with a left hip hemiarthroplasty on 01/[address] Clark. You tolerated this procedure well with no complications. You are being discharged to [facility] for postoperative rehab. Upon discharge from the hospital: * Take Eliquis (blood thinner) 2.5 mg twice daily x 1 month. This will serve as your DVT prophylaxis to prevent blood clots from forming postoperatively. * Take ferrous sulfate (oral iron supplementation) 325 mg daily x 1 month. This is to help replace the blood loss during surgery. * Take Tylenol as needed for pain. You have not required any stronger pain medications in your postoperative period so no narcotic pain medications were prescribed on discharge. * Take MiraLAX once daily as needed for constipation. Oral iron supplementation can cause constipation so monitor for this. * Your Vitamin D supplementation was increased to 25 mcg daily - continue this. * Continue your other home medications as prescribed. * Follow the additional instructions from your orthopedic team listed below. * Follow-up with orthopedics as scheduled on 02/07/2025 at 2:00 PM. * Follow-up with your PCP in 1-2 weeks. Please return to the hospital if you experience any of the following: Severe uncontrolled pain, chest pain, difficulty breathing, new or worsening confusion, passing out, inability to tolerate oral intake, or any other symptoms concerning for you. It was a pleasure taking care of you while you were in the hospital! Supervising Physician Co-Signing Physician Notes PA Supervision Note: I did not personally see or examine the patient today, but I verified all marks points of SHARLENE Nick's assessment and plan with the following exceptions/additions: None Total Time Total Time Spent Total Time Spent (In Minutes): Greater than 30 minutes spent completing this discharge process including direct patient care, medication reconciliation, documentation, review of labs and images, and coordination of care. Coding Level of Care Code 87187 INP/OBS DISCH >30 MIN Diagnoses Displaced fracture of left femoral neck S72.002A Ground-level fall W18.30XA
== END 2025-01-26 13:17 | DRG 522 ==
LOC: SUATTDRO → ED 11:07 → SUATTDRO 14:08 → 3W 14:08